=== PATIENT | female | born 1940 | race Caucasian/White ===

== ENCOUNTER 2021-12-27 06:34 | Outpatient (CLI) | payer MEDICARE, SELFPAY ==
--- NOTE | 2021-12-27 06:49 | ECHO_ITS ---
Patient Info Name: Sherrie Vasquez Age: 81 years : 1940 Gender: Female Ht: 60 in Wt: 135 lbs BSA: 1.63 m2 HR: 79 bpm BP: 151 / 82 mmHg Technical Quality: Fair Exam Date: 12/27/2021 7:03 AM Exam Location: [facility] Patient Status: Outpatient Admit Date: 12/27/2021 Staff Ordering Physician: Luis Chen MD Sec Accountant: Arianna Brar RDCS Attending Provider: Luis Chen MD Referring Physician: Gustavo RAMIREZ; Exam Type: CA echo doppler color flow Study Info Indications I10 - Essential (primary) hypertension Complete two-dimensional, color flow and Doppler transthoracic echocardiogram is performed. Summary 1. Complete two-dimensional, color flow and Doppler transthoracic echocardiogram is performed. 2. Left ventricular chamber dimension is normal. 3. Left ventricular systolic function is normal, estimated at 60-65%. 4. The left ventricular diastolic function is grade II diastolic dysfunction. 5. E/e' 18 is elevated. 6. There is mild tricuspid valve regurgitation. 7. No pulmonary hypertension, estimated pulmonary arterial systolic pressure is 23 mmHg. Left Ventricle E/e' 18 is elevated. Left ventricular chamber dimension is normal. Left ventricular systolic function is normal, estimated at 60-65%. The left ventricular diastolic function is grade II diastolic dysfunction. Right Ventricle Right ventricular chamber dimension is normal. Right ventricular systolic function is normal. Left Atria Left atrial chamber dimension is normal. Right Atria Right atrial chamber dimension is normal. Aortic Valve The aortic valve is trileaflet. There is no aortic valve stenosis. There is no aortic valve regurgitation. Pulmonic Valve There is no pulmonic regurgitation. Mitral Valve There is no mitral valve stenosis. There is no mitral valve regurgitation. Tricuspid Valve There is mild tricuspid valve regurgitation. No pulmonary hypertension, estimated pulmonary arterial systolic pressure is 23 mmHg. Pericardium/Pleural There is no pericardial effusion. Inferior Vena Cava Normal inferior vena cava with >50% collapse upon inspiration consistent with normal right atrial pressure, 5 mmHg. Aorta The aortic root size at the sinus of Valsalva is normal. Left Ventricular Outflow Tract Name Value Normal LVOT 2D LVOT Diameter 1.9 cm LVOT Doppler LVOT Peak Gradient 4 mmHg LVOT Mean Gradient 2 mmHg LVOT VTI 21 cm LVOT VTI/AV VTI Ratio 0.9 LVOT Stroke Volume 59 ml LVOT CO 4.0 l/min LVOT CI 2.5 l/min/m2 Pulmonic Valve Name Value Normal RVOT Doppler RVOT Peak Gradient 2 mmHg
== END 2021-12-27 06:35 | disposition home or self-care (01) ==
LOC: ANHCARD 06:37
PROVIDERS: PCP Internal Medicine; Visit Provider Internal Medicine
DX: R01.1 Cardiac murmur, unspecified (principal); I10 Essential (primary) hypertension; R09.89 Other specified symptoms and signs involving the circulatory and respiratory systems; I36.1 Nonrheumatic tricuspid (valve) insufficiency
CPT/HCPCS: 93306

== ENCOUNTER 2022-01-01 10:45 | Outpatient (CLI) | payer MEDICARE, SELFPAY ==
--- NOTE | ~2022-01-01 | US_ITS ---
EXAMINATION: US carotid duplex BI DATE: 01/01/2022 11:32 INDICATION: Hypertension. Heart murmur. TECHNIQUE: Grayscale, color Doppler, and pulsed Doppler images of the cervical carotid arteries were obtained. The degree of vessel stenosis is placed in one of the following categories: normal, <50%, 5 0-69%, >=70% but less than near-occlusion, near-occlusion, or total occlusion. Note that percent sten osis relative to normal distal artery lumen diameter is indirectly measured from velocity measurement s as described by Zachariah, et al. Radiology 2003; 229:340-346. Notes: Normal: Peak systolic velocity <125 centimeters/sec and no plaque <50%. Peak systolic velocity <125 ( EDV <40; ICA/CCA PSV ratio <2.0; used these factors only a tandem lesions or low cardiac output or co ntralateral disease) 50-69 %: PSV 125-230 (EDV 40-100; ratio 2-4) >= 70% but less than near occlusion: PSV greater than 230 (EDV > 100; ratio> 4.0) Near Occlusion: PSV that is variable; markedly narrowed lumen Occlusion: Absent flow on color/spectral Doppler and no lumen on valadez scale. COMPARISON: None. FINDINGS: RIGHT: The right common carotid artery (CCA) peak systolic velocity (PSV) is 80 cm/s. The right internal car otid artery (ICA) PSV is 127 cm/s. The right ICA end-diastolic velocity (EDV) is 31 cm/s. The right I CA/CCA PSV ratio is 1.6. The external carotid artery (ECA) PSV is 75 cm/s. There is antegrade flow in the right vertebral artery. LEFT: The left CCA PSV is 92 cm/s. The left ICA PSV is 85 cm/s. The left ICA EDV is 19 cm/s. The left ICA/C CA PSV ratio is 0.9. The ECA PSV is 120 cm/s. There is antegrade flow in the left vertebral artery. IMPRESSION: 1. 50-69% stenosis in the right internal carotid artery by sonographic criteria. 2. Less than 50% stenosis in the left internal carotid artery by sonographic criteria. Reviewed, dictated and finalized at location A. IMPRESSION: 1. 50-69% stenosis in the right internal carotid artery by sonographic criteria . 2. Less than 50% stenosis in the left internal carotid artery by sonographic cr iteria.
== END 2022-01-01 10:46 | disposition home or self-care (01) ==
LOC: ANHIMG 10:45
PROVIDERS: PCP Internal Medicine; Visit Provider Internal Medicine
DX: R09.89 Other specified symptoms and signs involving the circulatory and respiratory systems (principal); R01.1 Cardiac murmur, unspecified; I10 Essential (primary) hypertension; I65.23 Occlusion and stenosis of bilateral carotid arteries
CPT/HCPCS: 93880

== ENCOUNTER 2022-01-22 06:56 | Outpatient (CLI) | payer MEDICARE, SELFPAY ==
--- NOTE | ~2022-01-22 | CT_ITS ---
EXAMINATION: CTA BRAIN/CAROTID DATE: 01/22/2022 08:08 INDICATION: Abnormal carotid ultrasound TECHNIQUE: Computed tomographic angiography (CTA) of the head and neck was performed with 100 mL Omni paque-300 intravenous contrast. Multiplanar reconstructions and maximum intensity projection 3D-recon structions of the carotid arteries and of the intracranial arteries were created by the technologist on a separate workstation. Precontrast CT of the head was also obtained. Automated exposure control and iterative reconstruction technique were employed.The dose-length product was 1520.44 mGy-cm. COMPARISON: Carotid ultrasound dated 01/01/2022 FINDINGS: Carotid arteries: 60% stenosis of the proximal left subclavian artery proximal to the takeoff of the left vertebral art carole. There is atherosclerotic plaque with 50% stenosis of the right carotid bulb relative to normal d istal artery lumen diameter (NASCET criteria). There is small amount of atherosclerotic plaque with 0 % stenosis of the left carotid bulb relative to normal distal artery lumen diameter. Severely atrophi c thyroid gland with minimal thyroid tissue the left and right thyroid fossae without evident postope rative changes. Correlate for clinical history of prior thyroid ablation. Cervical soft tissues are o therwise unremarkable. Mild cervical spondylosis. Partially visualized 1.5 cm region of groundglass o pacity in the right upper lobe. Head: No acute intracranial hemorrhage, acute infarction or abnormal extra axial fluid collection. There is mild scattered white matter hypoattenuation consistent with chronic small vessel ischemic disease. V entricles are normal and symmetric. No mass/mass effect. No abnormally enhancing brain lesions. Aguilar es of bilateral intraocular lens replacement. The orbits, paranasal sinuses and mastoid air cells are normal. The right maxillary sinus is small with thickened sclerotic guy and moderate mucosal thick ening consistent with chronic sinusitis. There is been resection of the medial wall of the right maxi llary sinus. Mastoid air cells and middle ear cavities are clear. Intracranial arteries Small amount of nonhemodynamically significant atherosclerotic plaque at the bilateral carotid siphon s. There is no hemodynamically significant stenosis in the vertebral, basilar and internal carotid ar teries. Right vertebral artery is dominant. There are no aneurysms identified. Both A1 and P1 segmen ts are patent. Cerebral arterial arborization appears symmetric. IMPRESSION: 1. 50% stenosis of the right carotid bulb relative to normal distal artery lumen diameter (NASCET cri teria). 2. 0% stenosis of the left carotid bulb relative to normal distal artery lumen diameter. 3. Normal cerebral CT angiogram. 4. Mild scattered white matter hypoattenuation consistent with chronic small vessel ischemic disease. No acute intracranial process or abnormally enhancing brain lesions. 5. 60% stenosis along the proximal left subclavian artery. 6. Indeterminate 1.5 cm groundglass opacity in the right upper lobe which is most likely either infec tious, inflammatory or atelectatic in etiology underlying malignancy such as bronchoalveolar carcinom a could not be excluded. Consider 3 month follow-up noncontrast chest CT. Reviewed, dictated and finalized at location A. IMPRESSION: 1. 50% stenosis of the right carotid bulb relative to normal distal artery lume n diameter (NASCET criteria). 2. 0% stenosis of the left carotid bulb relative to normal distal artery lumen diameter. 3. Normal cerebral CT angiogram. 4. Mild scattered white matter hypoattenuation consistent with chronic small ve ssel ischemic disease. No acute intracranial process or abnormally enhancing br ain lesions. 5. 60% stenos
[2022-01-22 07:58] LABS: Estimated Glomerular Filt Rate > 60
== END 2022-01-22 06:57 | disposition home or self-care (01) ==
PROVIDERS: PCP Internal Medicine; Visit Provider Internal Medicine
DX: I65.21 Occlusion and stenosis of right carotid artery (principal)
CPT/HCPCS: 70496; 70498; Q9967

== ENCOUNTER 2022-04-02 08:06 | Outpatient (CLI) | payer MEDICARE, SELFPAY ==
[2022-04-02 08:38] LABS: Basophils Absolute Auto 0.1 K/mm3 (0.0-0.1); Eosinophils Absolute Auto 0.1 K/mm3 (0-0.3); Eosinophils Percent Auto 0.9 % (0-4.4); Hematocrit 52.6 % (37.0-47.0); Hemoglobin 16.5 g/dL (12.0-15.0); Immature Granulocyte Absolute 0.06 K/mm3 (0.00-0.031); Immature Granulocyte Percent A 0.5 % (0-0.5); Lymphocytes Absolute Auto 2.41 K/mm3 (0.9-3.2); Lymphocytes Percent Auto 18.7 % (18.3-44.2); Mean Corpuscular HGB Conc 31.4 g/dl (32-36); Mean Corpuscular Volume 89.3 fl (80-100); Mean Platelet Volume 11.5 fl (7.4-10.4); Monocytes Percent Auto 7.5 % (2.6-8.5); Neutrophils Absolute Auto 9.2 K/mm3 (1.3-6.7); Neutrophils Percent Auto 71.4 % (45.5-73.1); Platelet Count Result 302 k/mm3 (150-375); Red Blood Count 5.89 M/mm3 (4.2-5.4); Red Cell Distribution Width 13.4 % (11.5-14.5); White Blood Count 12.9 K/mm3 (4.5-10.0)
[2022-04-02 11:26] LABS: Appearance Urine Clear (Clear); Bilirubin Urine Negative (Negative); Blood Urine Negative (Negative); Color Urine Yellow (Yellow); Glucose Urine UA Negative (Negative); Ketones Urine Negative (Negative); Leukocyte Esterase Ur Negative LEU/UL (Negative); Nitrate Urine Negative (Negative); Protein Urine Negative (Negative); Urobilinogen Urine 0.2 mg/dL (<2.0); pH Urine 6.5 (5.0-9.0)
[2022-04-02 11:33] LABS: Mucus Urine Rare /lpf; Squamous Epithelial Cell Urine Rare /hpf (Few); WBC Urine 0-3 /hpf
[2022-04-02 11:50] LABS: Add Urine Microscopic? NO
[2022-04-02 13:34] LABS: Alanine Aminotransferase 23 U/L (6-35); Albumin Level 4.4 g/dL (3.5-5.1); Alkaline Phosphatase 163 U/L (38-126); Anion Gap 11 mmol/L (8-16); Aspartate Amino Transferase 35 U/L (14-36); Bilirubin,Total 0.9 mg/dL (0.2-1.3); Blood Urea Nitrogen 16 mg/dL (7-17); Calcium 9.6 mg/dL (8.4-10.2); Carbon Dioxide 26 mmol/L (22-30); Chloride 99 mmol/L (98-107); Cholesterol 187 mg/dL (0-200); Estimated Glomerular Filt Rate > 60; Glucose 87 mg/dL (65-110); HDL Direct 59 mg/dL; Potassium 4.2 mmol/L (3.4-5.0); Sodium 136 mmol/L (137-145); Triglycerides 128 mg/dL (<150)
[2022-04-02 13:45] LABS: LDL Cholesterol Direct 115 mg/dL
[2022-04-02 15:10] LABS: Iron 128 ug/dL (37-170)
[2022-04-02 15:19] LABS: Percent Iron Saturation 27 % (20-50)
[2022-04-02 15:28] LABS: Free T4 Free Thyroxine 2.56 ng/mL (0.78-2.19)
[2022-04-05 12:51] LABS: Insulin Level Total 2.1 uIU/mL (<=19.6)
[2022-04-06 05:28] LABS: C-Peptide 2.14 ng/mL (0.80-3.85)
== END 2022-04-02 08:07 | disposition home or self-care (01) ==
LOC: ANHLAB 08:09
PROVIDERS: PCP Internal Medicine; Visit Provider Internal Medicine
DX: I10 Essential (primary) hypertension (principal); Z13.1 Encounter for screening for diabetes mellitus; Z79.899 Other long term (current) drug therapy; E83.119 Hemochromatosis, unspecified; E78.5 Hyperlipidemia, unspecified; E03.9 Hypothyroidism, unspecified
CPT/HCPCS: 36415; 80053; 80061; 81003; 82728; 83036; 83525; 83540; 83550; 84439; 84443; 84681; 85025

== ENCOUNTER 2022-09-11 07:00 | Outpatient (NON) | payer MEDICARE, SELFPAY | END 2022-09-11 07:01 | disposition home or self-care (01) | PROVIDERS: PCP Internal Medicine; Visit Provider Nurse Practitioner | DX: L57.0 Actinic keratosis (principal) | CPT/HCPCS: 88305 ==

== ENCOUNTER 2022-10-06 07:40 | Outpatient (CLI) | payer MEDICARE, SELFPAY ==
--- NOTE | ~2022-10-06 | US_ITS ---
US abdomen complete EXAMINATION: US Abdomen Complete INDICATION: Abnormal laboratory studies. PROCEDURE: Realtime High Resolution abdomen ultrasound. COMPARISON: No prior studies for comparison FINDINGS: Gallbladder within normal limits. No gallstones, pericholecystic fluid, gallbladder wall t hickening or biliary dilatation. Common bile duct measures 6 mm. Liver echotexture within normal limits without focal mass. Pancreas within normal limits. Pancreati c tail is obscured by bowel gas. Spleen is unremarkeable. Renal echotexture is within normal limits bilaterally without hydronephrosis, contour deforming mass or renal stone. Right kidney measures 10.2 cm. Left kidney measures 9.6 cm. Visualized aspects of the aorta and IVC are within normal limits. Portal vein is patent. No sonograph ic Talavera's sign indicated by the technologist. IMPRESSION: 1: Normal abdominal ultrasound. Reviewed, dictated and finalized at location B.
== END 2022-10-06 07:41 | disposition home or self-care (01) ==
PROVIDERS: PCP Internal Medicine; Visit Provider Internal Medicine
DX: R74.8 Abnormal levels of other serum enzymes (principal)
CPT/HCPCS: 76700

== ENCOUNTER 2022-10-27 09:32 | Outpatient (CLI) | payer MEDICARE, SELFPAY ==
--- NOTE | ~2022-10-27 | NM_ITS ---
EXAMINATION: NM emmy stress w perfusion DATE: 10/27/2022 11:56 INDICATION: Chest pain, unspecified. TECHNIQUE: Rest images were obtained following intravenous administration of 10.7 mCi Tc99m tetrofosm in (Myoview). The patient was infused intravenously with Lexiscan (regadenoson). Then, 32.7 mCi Tc99m tetrofosmin (Myoview) was administered intravenously, and stress images were obtained. Data was giovanna nstructed into short axis and horizontal and vertical long axis SPECT images. Gated SPECT images were also obtained. COMPARISON: None. FINDINGS: There is a small, mild, fixed perfusion defect involving mid inferoseptal and mid inferior segments of left ventricle, consistent with infarct. No reversible component to suggest ischemia. Th ere is no segmental wall motion abnormality. Left ventricular ejection fraction measures >70%. IMPRESSION: 1. Small area of mild infarct involving mid inferoseptal and inferior inferior segments of left ventr icle. 2. Normal left ventricular ejection fraction measuring >70%. Reviewed, dictated and finalized at location A. IMPRESSION: 1. Small area of mild infarct involving mid inferoseptal and inferior inferior segments of left ventricle. 2. Normal left ventricular ejection fraction measuring >70%.
--- NOTE | 2022-10-27 09:41 | EST_ITS ---
Patient Info Name: Sherrie Vasquez Age: 82 years : 1940 Gender: Female Ht: 60 in Wt: 139 lbs BSA: 1.65 m2 HR: 64 bpm BP: 133 / 80 mmHg Heart Rhythm: Sinus Rhythm Exam Date: 10/27/2022 11:05 AM Exam Location: [facility] Stress Patient Status: Outpatient Admit Date: 10/27/2022 Staff Ordering Physician: Luis Chen MD Attending Provider: Luis Chen MD Exercise Technologist: Nancy Cisneros CT Exercise Physician: Hemal Garay DO Exam Type: CA stress emmy w NM Study Info Indications R07.89 - Other chest pain A regadenoson stress test was performed. Summary 1. 1. Negative lexiscan stress test for ischemic ST changes by ECG criteria. 2. 2. Stable hemodynamics throughout the test. 3. 3. Nuclear scan to follow and will be reported separately. Please correlate with it. 4. 4. Patient informed of the above results. Protocol: Lexiscan Stress ECG Details Stage: REST Duration (min): 1 min : 15 sec HR (bpm): 63 SBP (mmHg): 133 DBP (mmHg): 80 Stage: REST Duration (min): 9 min : 37 sec HR (bpm): 66 SBP (mmHg): 133 DBP (mmHg): 80 Stage: STAGE 1 Duration (min): 1 min : 0 sec HR (bpm): 72 SBP (mmHg): 135 DBP (mmHg): 55 Stage: RECOVERY Duration (min): 1 min : 0 sec HR (bpm): 90 SBP (mmHg): 135 DBP (mmHg): 55 Stage: RECOVERY Duration (min): 2 min : 0 sec HR (bpm): 88 SBP (mmHg): 135 DBP (mmHg): 55 Stage: RECOVERY Duration (min): 3 min : 0 sec HR (bpm): 85 SBP (mmHg): 135 DBP (mmHg): 55 Stage: RECOVERY Duration (min): 4 min : 0 sec HR (bpm): 83 SBP (mmHg): 93 DBP (mmHg): 66 Stage: RECOVERY Duration (min): 5 min : 0 sec HR (bpm): 83 SBP (mmHg): 93 DBP (mmHg): 66 Stage: RECOVERY Duration (min): 6 min : 0 sec HR (bpm): 79 SBP (mmHg): 93 DBP (mmHg): 66 Stage: RECOVERY Duration (min): 6 min : 31 sec HR (bpm): 79 SBP (mmHg): 109 DBP (mmHg): 50 Rest HR: 66 bpm Peak HR: 90 bpm Rest Sys BP: 133 mmHg Peak Sys BP: 135 mmHg Max Pred HR: 137 bpm % Max Pred HR: 66 % Target HR: 116 bpm Max RPP: 12,150 bpm*mmHg Termination Reason: Completed protocol Cardiac Symptoms: Shortness of breath Total Time: 1 min : 0 sec Rest Oconnor BP: 80 mmHg Peak Oconnor BP: 55 mmHg Total Dose: 0.4 mg Resting ECG Sinus rhythm, cannot r/o septal infarct, age indeterminate. Stress ECG No ST changes. Arrhythmias None. Report Signatures
== END 2022-10-27 09:33 | disposition home or self-care (01) ==
PROVIDERS: PCP Internal Medicine; Visit Provider Internal Medicine
DX: R07.9 Chest pain, unspecified (principal); I77.1 Stricture of artery
CPT/HCPCS: 78452; 93017; A9502; J2785

== ENCOUNTER 2023-01-20 09:21 | Outpatient (CLI) | payer MEDICARE, SELFPAY ==
[2023-01-20 09:47] LABS: Basophils Absolute Auto 0.1 K/mm3 (0.0-0.1); Basophils Percent Auto 1.3 % (0.2-1.2); Eosinophils Absolute Auto 0.3 K/mm3 (0-0.3); Eosinophils Percent Auto 2.7 % (0-4.4); Hematocrit 47.6 % (37.0-47.0); Hemoglobin 14.9 g/dL (12.0-15.0); Immature Granulocyte Absolute 0.03 K/mm3 (0.00-0.031); Immature Granulocyte Percent A 0.3 % (0-0.5); Lymphocytes Absolute Auto 2.11 K/mm3 (0.9-3.2); Lymphocytes Percent Auto 22.5 % (18.3-44.2); Mean Corpuscular HGB Conc 31.3 g/dl (32-36); Mean Corpuscular Hemoglobin 27.1 pg (26-34); Mean Corpuscular Volume 86.7 fl (80-100); Mean Platelet Volume 11.4 fl (7.4-10.4); Monocytes Absolute Auto 0.8 K/mm3 (0.1-0.6); Neutrophils Absolute Auto 6.1 K/mm3 (1.3-6.7); Neutrophils Percent Auto 65.2 % (45.5-73.1); Platelet Count Result 278 k/mm3 (150-375); Red Blood Count 5.49 M/mm3 (4.2-5.4); Red Cell Distribution Width 15.2 % (11.5-14.5); White Blood Count 9.4 K/mm3 (4.5-10.0)
[2023-01-20 10:00] LABS: Alanine Aminotransferase 24 U/L (6-35); Albumin Level 4.2 g/dL (3.5-5.1); Alkaline Phosphatase 157 U/L (38-126); Anion Gap 9 mmol/L (8-16); Aspartate Amino Transferase 37 U/L (14-36); Bilirubin,Total 1.1 mg/dL (0.2-1.3); Blood Urea Nitrogen 17 mg/dL (7-17); Calcium 8.9 mg/dL (8.4-10.2); Carbon Dioxide 29 mmol/L (22-30); Chloride 99 mmol/L (98-107); Cholesterol 188 mg/dL (0-200); Estimated Glomerular Filt Rate > 60; Glucose 95 mg/dL (65-110); HDL Direct 50 mg/dL; Sodium 137 mmol/L (137-145); Triglycerides 129 mg/dL (<150)
[2023-01-20 10:10] LABS: LDL Cholesterol Direct 108 mg/dL
[2023-01-20 10:49] LABS: Free T4 Free Thyroxine 1.35 ng/mL (0.78-2.19)
== END 2023-01-20 09:22 | disposition home or self-care (01) ==
PROVIDERS: PCP Internal Medicine; Visit Provider Internal Medicine
DX: R73.03 Prediabetes (principal); I10 Essential (primary) hypertension; E03.9 Hypothyroidism, unspecified; E78.5 Hyperlipidemia, unspecified
CPT/HCPCS: 36415; 80053; 80061; 83036; 84439; 84443; 85025

== ENCOUNTER 2023-06-10 07:28 | Outpatient (CLI) | payer MEDICARE, SELFPAY ==
[2023-06-10 08:48] LABS: Alanine Aminotransferase 20 U/L (6-35); Albumin Level 4.4 g/dL (3.5-5.1); Alkaline Phosphatase 165 U/L (38-126); Anion Gap 7 mmol/L (8-16); Aspartate Amino Transferase 38 U/L (14-36); Blood Urea Nitrogen 15 mg/dL (7-17); Calcium 9.6 mg/dL (8.4-10.2); Carbon Dioxide 30 mmol/L (22-30); Chloride 101 mmol/L (98-107); Cholesterol 177 mg/dL (0-200); Estimated Glomerular Filt Rate > 60; Glucose 117 mg/dL (65-110); HDL Direct 46 mg/dL; Potassium 5.1 mmol/L (3.4-5.0); Sodium 138 mmol/L (137-145); Triglycerides 149 mg/dL (<150)
[2023-06-10 08:53] LABS: Hemoglobin A1C 6.3 % (<5.7)
[2023-06-10 08:59] LABS: LDL Cholesterol Direct 95 mg/dL
[2023-06-10 09:08] LABS: Vitamin D 25 Hydroxy 19.8 ng/mL
== END 2023-06-10 07:29 | disposition home or self-care (01) ==
LOC: ANHLAB 07:31
PROVIDERS: PCP Internal Medicine; Visit Provider Internal Medicine
DX: E78.5 Hyperlipidemia, unspecified (principal); E03.9 Hypothyroidism, unspecified; R73.03 Prediabetes; I11.0 Hypertensive heart disease with heart failure; I50.9 Heart failure, unspecified; Z79.899 Other long term (current) drug therapy
CPT/HCPCS: 36415; 80053; 80061; 82306; 83036; 84439; 84443

== ENCOUNTER 2023-09-24 08:39 | Emergency (ER) | payer MEDICARE, SELFPAY ==
[2023-09-24] VITALS (8 sets, daily range): BP systolic 121–180; BP diastolic 62–100; PULSE 92; RESP 16; TEMP 36.3; O2SAT 94–100
--- NOTE | ~2023-09-24 | CT_ITS ---
EXAMINATION: CT abdomen pelvis w con DATE: 09/24/2023 10:06 INDICATION: Left-sided abdomen pain TECHNIQUE: Computed tomography (CT) of the abdomen and pelvis was performed with 100 cc Omnipaque 350 intravenous contrast. The dose-length product was 426.87 mGy-cm. Automated exposure control and iter ative reconstruction technique were employed. COMPARISON: Ultrasound dated 10/06/2022. FINDINGS: There is a 3 mm left UVJ stone with mild left hydroureteronephrosis. There is moderate left perinephric edema. There is mild urothelial enhancement of the proximal ureter. Cannot exclude ascen ding urinary tract infection There are small intraluminal nodules in the gallbladder which may represent stones or polyps. There a re liver cysts. There are calcified granulomas of the spleen. Nonobstructive bowel gas pattern. No ab normal pelvic masses or fluid collections. There are injection granulomas in the gluteal regions. The re is grade 1 spondylolisthesis at L5-S1 secondary to spondylolysis. There is disc narrowing at L4-5 and L5-S1. Moderate atherosclerosis of the aorta without aneurysm. No lymphadenopathy. IMPRESSION: 1. Left UVJ stone measuring 3 mm with mild hydronephrosis. Mild urothelial enhancement proximally. Ca nnot exclude ascending urinary tract infection. 2: Hyper dense nodules of the gallbladder may represent polyps or stones. Reviewed, dictated and finalized at location L. IMPRESSION: 1. Left UVJ stone measuring 3 mm with mild hydronephrosis. Mild urothelial enha ncement proximally. Cannot exclude ascending urinary tract infection. 2: Hyper dense nodules of the gallbladder may represent polyps or stones.
[2023-09-24] MEDS: ONDANSETRON INJ 4 MG/2 ML VIAL IV PUSH (09:04)
[2023-09-24 09:11] LABS: Basophils Absolute Auto 0.1 K/mm3 (0.0-0.1); Basophils Percent Auto 0.6 % (0.2-1.2); Eosinophils Absolute Auto 0.1 K/mm3 (0-0.3); Eosinophils Percent Auto 1.3 % (0-4.4); Hematocrit 52.8 % (37.0-47.0); Hemoglobin 17.2 g/dL (12.0-15.0); Immature Granulocyte Absolute 0.03 K/mm3 (0.00-0.031); Immature Granulocyte Percent A 0.3 % (0-0.5); Lymphocytes Absolute Auto 1.78 K/mm3 (0.9-3.2); Lymphocytes Percent Auto 16.8 % (18.3-44.2); Mean Corpuscular HGB Conc 32.6 g/dl (32-36); Mean Corpuscular Hemoglobin 27.4 pg (26-34); Mean Corpuscular Volume 84.1 fl (80-100); Mean Platelet Volume 11.2 fl (7.4-10.4); Monocytes Absolute Auto 0.8 K/mm3 (0.1-0.6); Monocytes Percent Auto 7.8 % (2.6-8.5); Neutrophils Absolute Auto 7.8 K/mm3 (1.3-6.7); Neutrophils Percent Auto 73.2 % (45.5-73.1); Platelet Count Result 286 k/mm3 (150-375); Red Blood Count 6.28 M/mm3 (4.2-5.4); Red Cell Distribution Width 16.7 % (11.5-14.5); White Blood Count 10.6 K/mm3 (4.5-10.0)
[2023-09-24 09:26] LABS: Alanine Aminotransferase 22 U/L (6-35); Albumin Level 4.3 g/dL (3.5-5.1); Alkaline Phosphatase 176 U/L (38-126); Anion Gap 5 mmol/L (4-12); Aspartate Amino Transferase 40 U/L (14-36); Bilirubin,Total 1.1 mg/dL (0.2-1.3); Blood Urea Nitrogen 18 mg/dL (7-17); Calcium 9.1 mg/dL (8.4-10.2); Carbon Dioxide 29 mmol/L (22-30); Chloride 100 mmol/L (98-107); Estimated CRCL calculation 24 ml/min; Estimated Glomerular Filt Rate 47; Glucose 129 mg/dL (65-110); Lipase 78 U/L (23-300); Potassium 3.8 mmol/L (3.4-5.0); Sodium 134 mmol/L (137-145)
--- NOTE | 2023-09-24 09:47 | ED.ABDPAIN ---
HPI - Abdominal Pain General Chief Complaint: Abdominal Pain Stated Complaint: left flank pain Time Seen by Provider: 09/24/23 09:03 History of Present Illness HPI narrative: 83-year-old female with a history of polycythemia, hypertension, hyperlipidemia, reported diverticulitis presents to the emergency department for left-sided abdominal pain and flank pain that started yesterday. Patient reports associated dysuria and denies hematuria or history of kidney stones. States the pain started after she went to dinner and came home. Last bowel movement was yesterday normal. Reports multiple episodes of nausea and vomiting since the onset of pain, denies diarrhea. Denies known fever, chest pain or shortness of breath, body aches or chills. prior abdominal surgeries include hysterectomy and appendectomy. Related Data Home Medications Medication Instructions Recorded Confirmed albuterol sulfate 90 mcg/actuation 1 puff inhalation Q4H PRN 12/23/21 06/10/23 aerosol inhaler (Ventolin HFA) cholecalciferol (vitamin D3) 50 50 mcg PO DAILY 09/09/22 06/10/23 mcg (2,000 unit) capsule Allergies Allergy/AdvReac Type Severity Reaction Status Date / Time Sulfa (Sulfonamide Allergy Unknown Unknown Verified 09/24/23 08:46 Antibiotics) Review of Systems Review of Systems: CONSTITUTIONAL: Denies fever, chills, or sweats. EYES: Denies visual changes, redness, or discharge. ENT: Denies rhinorrhea, congestion, sore throat, or otalgia. CARDIOVASCULAR: Denies chest pain, palpitations, or edema. RESPIRATORY: Denies cough or dyspnea. GASTROINTESTINAL: See HPI GENITOURINARY: Denies dysuria or hematuria. SKIN: Denies rash or itching. MUSCULOSKELETAL: Denies back pain, joint pain, or myalgia. NEUROLOGIC: Denies headache, numbness, or weakness. PSYCHIATRIC: Denies anxiety or depression. [facility] Past Medical History Medical History Acute sinusitis Benign essential hypertension Benign familial tremor BMI 24.0-24.9, adult BMI 25.0-25.9,adult Cardiac calcification Carotid bruit Elective procedure for unacceptable cosmetic appearance Encounter for Medicare annual wellness exam Encounter for routine adult health examination without abnormal findings Encounter to establish care Esophageal varices Esophagitis Follow up Ganglion cyst of finger Gastric nodule Grade II diastolic dysfunction Heart murmur Hemochromatosis High cholesterol Hyperlipidemia Hypothyroidism (acquired) Impaired functional mobility, balance, gait, and endurance Internal hemorrhoids Lung nodule On fpc drug therapy Thyroid disease Tricuspid valve regurgitation Viral warts Surgical History Surgical History H/O colonoscopy H/O oophorectomy History of esophagogastroduodenoscopy (EGD) Family History Family History Father Idiopathic Parkinson's disease Mother Heart disease Sibling Malignant neoplasm of prostate Son Diabetes mellitus Social History Social History Smoking status: Never smoker Alcohol intake: current Alcohol use details: occasional Substance use: never Lack of Transportation: No Lack of Food: Never True Current Housing: I Have Housing Concerned About Future Housing: No Difficulty Paying Gas/Electric Bills: No Difficulty Paying for Meds: No Currently Unemployed: No Education: High School Diploma/GED Difficulty w/ Childcare or Family Care: No Living arrangements: alone Additional living arrangements comments: at home with some hired hands 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
[2023-09-24] MEDS: MORPHINE SULFATE (*CRX) 4 MG/ML INJ 2 MG IV PUSH (10:13)
[2023-09-24 10:30] LABS: Lactic Acid Reflex 0.9 mmol/L (0.7-2.0)
[2023-09-24 11:40] LABS: Appearance Urine Clear (Clear); Bilirubin Urine Negative (Negative); Blood Urine Negative (Negative); Color Urine Yellow (Yellow); Glucose Urine UA Negative (Negative); Ketones Urine Negative (Negative); Leukocyte Esterase Ur Negative LEU/UL (Negative); Nitrate Urine Negative (Negative); Protein Urine Negative (Negative); Urobilinogen Urine 0.2 mg/dL (<2.0); pH Urine 7.5 (5.0-9.0)
[2023-09-24 11:48] LABS: Specific Grav Ur 1.038 (1.001-1.035)
[2023-09-24 11:49] LABS: Add Urine Microscopic? NO
[2023-09-24] MEDS: SODIUM CHLORIDE 0.9% IV 1,000 ML 999 ML IV CONT (12:00)
== END 2023-09-24 13:04 | disposition home or self-care (01) ==
PROVIDERS: Student in an Organized Health Care Education/Training Program; Emergency Provider Physician Assistant; PCP Internal Medicine
DX: N13.2 Hydronephrosis with renal and ureteral calculous obstruction (principal); K80.20 Calculus of gallbladder without cholecystitis without obstruction; I10 Essential (primary) hypertension; I07.1 Rheumatic tricuspid insufficiency; E78.00 Pure hypercholesterolemia, unspecified; E03.9 Hypothyroidism, unspecified; D75.1 Secondary polycythemia
CPT/HCPCS: 36415; 74177; 80053; 81003; 83605; 83690; 85025; 96361; 96374; 96375; 99284; J2270; J2405; J7030; Q9967

== ENCOUNTER 2023-10-13 10:04 | Outpatient (CLI) | payer MEDICARE, SELFPAY ==
[2023-10-13 10:33] LABS: Basophils Absolute Auto 0.1 K/mm3 (0.0-0.1); Basophils Percent Auto 0.9 % (0.2-1.2); Eosinophils Absolute Auto 0.1 K/mm3 (0-0.3); Eosinophils Percent Auto 1.3 % (0-4.4); Hematocrit 46.4 % (37.0-47.0); Immature Granulocyte Absolute 0.04 K/mm3 (0.00-0.031); Immature Granulocyte Percent A 0.4 % (0-0.5); Lymphocytes Absolute Auto 1.64 K/mm3 (0.9-3.2); Lymphocytes Percent Auto 17.8 % (18.3-44.2); Mean Corpuscular HGB Conc 32.3 g/dl (32-36); Mean Corpuscular Hemoglobin 27.3 pg (26-34); Mean Corpuscular Volume 84.5 fl (80-100); Mean Platelet Volume 11.4 fl (7.4-10.4); Monocytes Absolute Auto 0.9 K/mm3 (0.1-0.6); Monocytes Percent Auto 9.7 % (2.6-8.5); Neutrophils Absolute Auto 6.4 K/mm3 (1.3-6.7); Neutrophils Percent Auto 69.9 % (45.5-73.1); Platelet Count Result 322 k/mm3 (150-375); Red Blood Count 5.49 M/mm3 (4.2-5.4); Red Cell Distribution Width 15.8 % (11.5-14.5); White Blood Count 9.2 K/mm3 (4.5-10.0)
[2023-10-13 10:53] LABS: Alanine Aminotransferase 19 U/L (6-35); Albumin Level 4.3 g/dL (3.5-5.1); Alkaline Phosphatase 138 U/L (38-126); Anion Gap 8 mmol/L (4-12); Aspartate Amino Transferase 43 U/L (14-36); Bilirubin,Total 0.9 mg/dL (0.2-1.3); Blood Urea Nitrogen 13 mg/dL (7-17); Calcium 9.5 mg/dL (8.4-10.2); Carbon Dioxide 29 mmol/L (22-30); Chloride 100 mmol/L (98-107); Cholesterol 153 mg/dL (0-200); Estimated Glomerular Filt Rate > 60; Glucose 102 mg/dL (65-110); HDL Direct 43 mg/dL; Potassium 3.6 mmol/L (3.4-5.0); Sodium 137 mmol/L (137-145); Triglycerides 121 mg/dL (<150)
[2023-10-13 11:04] LABS: LDL Cholesterol Direct 91 mg/dL
[2023-10-13 11:13] LABS: Hemoglobin A1C 5.9 % (<5.7)
[2023-10-13 11:48] LABS: Free T4 Free Thyroxine 1.73 ng/mL (0.78-2.19); Vitamin D 25 Hydroxy 22.7 ng/mL
== END 2023-10-13 10:05 | disposition home or self-care (01) ==
LOC: ANHLAB 10:08
PROVIDERS: PCP Internal Medicine; Visit Provider Internal Medicine
DX: E03.9 Hypothyroidism, unspecified (principal); E55.9 Vitamin D deficiency, unspecified; I10 Essential (primary) hypertension; E78.5 Hyperlipidemia, unspecified; R73.03 Prediabetes
CPT/HCPCS: 36415; 80053; 80061; 82306; 83036; 84439; 84443; 85025

== ENCOUNTER 2023-11-16 13:21 | Outpatient (CLI) | payer MEDICARE, SELFPAY ==
[2023-11-16 15:23] LABS: Free T4 Free Thyroxine 2.46 ng/mL (0.78-2.19)
== END 2023-11-16 13:22 | disposition home or self-care (01) ==
LOC: ANHLAB 13:23
PROVIDERS: PCP Internal Medicine; Visit Provider Internal Medicine
DX: E03.9 Hypothyroidism, unspecified (principal)
CPT/HCPCS: 36415; 84439; 84443

== ENCOUNTER 2023-12-28 08:46 | Outpatient (CLI) | payer MEDICARE, SELFPAY ==
[2023-12-28 10:05] LABS: Basophils Absolute Auto 0.1 K/mm3 (0.0-0.1); Basophils Percent Auto 0.9 % (0.2-1.2); Eosinophils Absolute Auto 0.2 K/mm3 (0-0.3); Eosinophils Percent Auto 1.7 % (0-4.4); Hematocrit 51.4 % (37.0-47.0); Hemoglobin 16.3 g/dL (12.0-15.0); Immature Granulocyte Absolute 0.03 K/mm3 (0.00-0.031); Immature Granulocyte Percent A 0.3 % (0-0.5); Lymphocytes Absolute Auto 2.09 K/mm3 (0.9-3.2); Lymphocytes Percent Auto 19.6 % (18.3-44.2); Mean Corpuscular HGB Conc 31.7 g/dl (32-36); Mean Corpuscular Hemoglobin 27.1 pg (26-34); Mean Corpuscular Volume 85.5 fl (80-100); Mean Platelet Volume 11.9 fl (7.4-10.4); Monocytes Absolute Auto 0.8 K/mm3 (0.1-0.6); Monocytes Percent Auto 7.1 % (2.6-8.5); Neutrophils Absolute Auto 7.5 K/mm3 (1.3-6.7); Neutrophils Percent Auto 70.4 % (45.5-73.1); Platelet Count Result 308 k/mm3 (150-375); Red Blood Count 6.01 M/mm3 (4.2-5.4); Red Cell Distribution Width 14.7 % (11.5-14.5); White Blood Count 10.6 K/mm3 (4.5-10.0)
[2023-12-28 10:24] LABS: Alanine Aminotransferase 20 U/L (6-35); Albumin Level 4.4 g/dL (3.5-5.1); Alkaline Phosphatase 174 U/L (38-126); Anion Gap 6 mmol/L (4-12); Aspartate Amino Transferase 37 U/L (14-36); Bilirubin,Total 0.9 mg/dL (0.2-1.3); Blood Urea Nitrogen 17 mg/dL (7-17); Calcium 9.2 mg/dL (8.4-10.2); Carbon Dioxide 30 mmol/L (22-30); Chloride 101 mmol/L (98-107); Cholesterol 165 mg/dL (0-200); Estimated Glomerular Filt Rate > 60; Glucose 94 mg/dL (65-110); HDL Direct 48 mg/dL; Potassium 4.6 mmol/L (3.4-5.0); Sodium 137 mmol/L (137-145); Triglycerides 148 mg/dL (<150)
[2023-12-28 10:30] LABS: Free T4 Free Thyroxine 2.13 ng/mL (0.78-2.19)
[2023-12-28 10:35] LABS: LDL Cholesterol Direct 99 mg/dL
[2023-12-28 11:25] LABS: Hemoglobin A1C 5.8 % (<5.7)
== END 2023-12-28 08:47 | disposition home or self-care (01) ==
LOC: ANHLAB 08:50
PROVIDERS: PCP Internal Medicine; Visit Provider Internal Medicine
DX: E78.5 Hyperlipidemia, unspecified (principal); E03.9 Hypothyroidism, unspecified; I10 Essential (primary) hypertension; R74.8 Abnormal levels of other serum enzymes; Z79.899 Other long term (current) drug therapy
CPT/HCPCS: 36415; 80053; 80061; 82306; 83036; 84439; 84443; 85025

== ENCOUNTER 2024-03-04 08:57 | Outpatient (CLI) | payer MEDICARE, SELFPAY ==
--- NOTE | ~2024-03-04 | XR_ITS ---
Clinical Indication: Hyperhidrosis PA and lateral views of the chest: Comparison: None Findings: The lungs are clear, without evidence of focal consolidation or pleural effusion. Suspected COPD. Cardiomediastinal silhouette is within normal limits. Bones and soft tissues are unremarkable. Impression: Clear lungs. Suspected COPD. Reviewed, dictated and finalized at location . Impression: Clear lungs. Suspected COPD.
[2024-03-04 09:28] LABS: Basophils Absolute Auto 0.1 K/mm3 (0.0-0.1); Eosinophils Absolute Auto 0.2 K/mm3 (0-0.3); Eosinophils Percent Auto 2.2 % (0-4.4); Hematocrit 49.6 % (37.0-47.0); Hemoglobin 15.6 g/dL (12.0-15.0); Immature Granulocyte Absolute 0.02 K/mm3 (0.00-0.031); Immature Granulocyte Percent A 0.2 % (0-0.5); Lymphocytes Absolute Auto 2.14 K/mm3 (0.9-3.2); Lymphocytes Percent Auto 24.7 % (18.3-44.2); Mean Corpuscular HGB Conc 31.5 g/dl (32-36); Mean Corpuscular Hemoglobin 26.7 pg (26-34); Mean Corpuscular Volume 84.8 fl (80-100); Mean Platelet Volume 11.2 fl (7.4-10.4); Monocytes Absolute Auto 0.7 K/mm3 (0.1-0.6); Monocytes Percent Auto 7.6 % (2.6-8.5); Neutrophils Absolute Auto 5.6 K/mm3 (1.3-6.7); Neutrophils Percent Auto 64.3 % (45.5-73.1); Platelet Count Result 330 k/mm3 (150-375); Red Blood Count 5.85 M/mm3 (4.2-5.4); Red Cell Distribution Width 15.7 % (11.5-14.5); White Blood Count 8.7 K/mm3 (4.5-10.0)
[2024-03-04 09:37] LABS: Add Urine Microscopic? NO; Appearance Urine Clear (Clear); Bilirubin Urine Negative (Negative); Blood Urine Negative (Negative); Color Urine Yellow (Yellow); Glucose Urine UA Negative (Negative); Ketones Urine Negative (Negative); Leukocyte Esterase Ur Negative LEU/UL (Negative); Nitrate Urine Negative (Negative); Protein Urine Negative (Negative); Specific Grav Ur 1.015 (1.001-1.035); pH Urine 5.5 (5.0-9.0)
[2024-03-04 10:00] LABS: Alanine Aminotransferase 20 U/L (6-35); Albumin Level 4.3 g/dL (3.5-5.1); Alkaline Phosphatase 157 U/L (38-126); Anion Gap 7 mmol/L (4-12); Aspartate Amino Transferase 40 U/L (14-36); Bilirubin,Total 0.8 mg/dL (0.2-1.3); Blood Urea Nitrogen 15 mg/dL (7-17); Calcium 9.4 mg/dL (8.4-10.2); Carbon Dioxide 32 mmol/L (22-30); Chloride 97 mmol/L (98-107); Estimated Glomerular Filt Rate > 60; Glucose 104 mg/dL (65-110); Lactate Dehydrogenase 241 U/L (120-246); Potassium 5.3 mmol/L (3.4-5.0); Sodium 136 mmol/L (137-145)
== END 2024-03-04 08:58 | disposition home or self-care (01) ==
PROVIDERS: PCP Internal Medicine; Visit Provider Internal Medicine
DX: R61 Generalized hyperhidrosis (principal); R35.0 Frequency of micturition; R30.0 Dysuria; D75.1 Secondary polycythemia; Z79.899 Other long term (current) drug therapy
CPT/HCPCS: 36415; 71046; 80053; 81003; 82668; 83615; 85025; 87086

== ENCOUNTER 2024-03-15 11:14 | Outpatient (CLI) | payer MEDICARE, SELFPAY ==
--- NOTE | ~2024-03-15 | US_ITS ---
EXAMINATION: US renal BI DATE: 03/15/2024 12:28 INDICATION: Frequency of micturition TECHNIQUE: Multiple ultrasound grayscale images of the kidneys were obtained. COMPARISON: CT dated 09/24/2023 FINDINGS: The right kidney measures 10.3 x 4.2 x 4.8 cm. The left kidney measures 10.2 x 4.9 x 4.9 cm. The kidn eys demonstrate normal echogenicity. There is no hydronephrosis in either kidney. No stones identifi ed. The bladder is normal with bilateral ureteral jets visualized on color Doppler. IMPRESSION: 1. Normal kidneys without hydronephrosis. Reviewed, dictated and finalized at location B.
== END 2024-03-15 11:15 | disposition home or self-care (01) ==
PROVIDERS: PCP Internal Medicine; Visit Provider Internal Medicine
DX: R35.0 Frequency of micturition (principal); M54.9 Dorsalgia, unspecified; D75.1 Secondary polycythemia
CPT/HCPCS: 76775

== ENCOUNTER 2024-06-06 10:30 | Outpatient (CLI) | payer MEDICARE, SELFPAY ==
[2024-06-06 11:55] LABS: Free T4 Free Thyroxine 1.85 ng/dL (0.78-2.19)
== END 2024-06-06 10:31 | disposition home or self-care (01) ==
PROVIDERS: PCP Internal Medicine; Visit Provider Internal Medicine
DX: E03.9 Hypothyroidism, unspecified (principal); Z79.899 Other long term (current) drug therapy
CPT/HCPCS: 36415; 84439; 84443

== ENCOUNTER 2024-09-16 08:17 | Inpatient (IN) | payer MEDICARE, SELFPAY ==
--- NOTE | ~2024-09-16 | CT_ITS ---
CT abdomen pelvis w con Ordering provider: Abdulaziz Woodruff MD History: 84 years Female with . diverticulitis . Comparison: September 24, 2023 Technique: CT abdomen and pelvis with IV and without oral contrast. Automated exposure control and it erative reconstruction technique were employed. The dose-length product was 289.15 mGy-cm. 100 mL Omn ipaque 350 was given IV. Findings: VISUALIZED LOWER CHEST: Normal. UPPER ABDOMINAL ORGANS: Liver: Multiple tiny hypodensities in the left and right lobe of the area of the gallbladder which ar e most likely tiny cysts. Ultrasound evaluation advised. Gallbladder: Cholelithiasis. Spleen: Normal. Stomach/duodenum: Normal. Pancreas: Normal. Adrenals: Normal. Kidneys: Normal. PELVIC ORGANS: The bladder is underfilled. BOWEL AND MESENTERY: Colon: Mild soft tissue density in the sigmoid colon with no significant surrounding fat stranding guy ggestive of a mass. Sigmoidoscopy is advised. Diverticulitis cannot be excluded although less likely. The appendix is not demonstrated. Small Bowel: Normal. No obstruction. Peritoneum/mesentery: No free air or free fluid. No mesenteric lymphadenopathy. Prominent vessels are seen in the left side of the pelvis. Small mesenteric lymph nodes are noted. RETROPERITONEUM: Mild atheromatous disease of the abdominal aorta. No retroperitoneal lymphadenopat hy. MUSCULOSKELETAL: Superficial soft tissues: Bilateral buttock calcifications most likely postinjection. The superficial soft tissues are normal. Bones: Age appropriate degenerative changes of the spine. Minimal anterolisthesis at the level of L5- S1. Spondylolysis is seen bilaterally at the same level. IMPRESSION: 1. Possible mass in the sigmoid colon. Sigmoidoscopy is advised. Diverticulitis is less likely, Alth ough not excluded. 2. Cholelithiasis. Reviewed, dictated and finalized at location A. IMPRESSION: 1. Possible mass in the sigmoid colon. Sigmoidoscopy is advised. Diverticuliti s is less likely, Although not excluded. 2. Cholelithiasis.
[2024-09-16 08:21] VITALS: BP 96/50; PULSE 68; RESP 16; TEMP 36.3; O2SAT 98
[2024-09-16 09:00] LABS: Basophils Absolute Auto 0.1 K/mm3 (0.0-0.1); Basophils Percent Auto 0.7 % (0.2-1.2); Eosinophils Absolute Auto 0.1 K/mm3 (0-0.3); Eosinophils Percent Auto 0.9 % (0-4.4); Hematocrit 48.8 % (37.0-47.0); Hemoglobin 15.5 g/dL (12.0-15.0); Immature Granulocyte Absolute 0.05 K/mm3 (0.00-0.031); Immature Granulocyte Percent A 0.3 % (0-0.5); Lymphocytes Absolute Auto 1.54 K/mm3 (0.9-3.2); Lymphocytes Percent Auto 10.2 % (18.3-44.2); Mean Corpuscular HGB Conc 31.8 g/dl (32-36); Mean Corpuscular Hemoglobin 26.8 pg (26-34); Mean Corpuscular Volume 84.4 fl (80-100); Mean Platelet Volume 11.5 fl (7.4-10.4); Monocytes Absolute Auto 1.1 K/mm3 (0.1-0.6); Monocytes Percent Auto 7.2 % (2.6-8.5); Neutrophils Absolute Auto 12.2 K/mm3 (1.3-6.7); Neutrophils Percent Auto 80.7 % (45.5-73.1); Platelet Count Result 274 k/mm3 (150-375); Red Blood Count 5.78 M/mm3 (4.2-5.4); Red Cell Distribution Width 14.7 % (11.5-14.5); White Blood Count 15.1 K/mm3 (4.5-10.0)
[2024-09-16 09:06] LABS: Add Urine Microscopic? YES; Appearance Urine Cloudy (Clear); Bilirubin Urine Negative (Negative); Blood Urine Negative (Negative); Color Urine Dark Yellow (Yellow); Glucose Urine UA Negative (Negative); Ketones Urine Trace mg/dL (Negative); Leukocyte Esterase Ur Negative LEU/UL (Negative); Nitrate Urine Negative (Negative); Protein Urine Trace mg/dL (Negative); Specific Grav Ur 1.023 (1.001-1.035); pH Urine 5.5 (5.0-9.0)
[2024-09-16 09:10] LABS: Alanine Aminotransferase 22 U/L (6-35); Albumin Level 4.2 g/dL (3.5-5.1); Alkaline Phosphatase 138 U/L (38-126); Anion Gap 8 mmol/L (4-12); Aspartate Amino Transferase 39 U/L (14-36); Bilirubin,Total 1.6 mg/dL (0.2-1.3); Blood Urea Nitrogen 16 mg/dL (7-17); Calcium 9.2 mg/dL (8.4-10.2); Carbon Dioxide 30 mmol/L (22-30); Chloride 98 mmol/L (98-107); Estimated CRCL calculation 33 ml/min; Estimated Glomerular Filt Rate > 60; Glucose 110 mg/dL (65-110); Lipase 68 U/L (23-300); Potassium 4.5 mmol/L (3.4-5.0); Sodium 136 mmol/L (137-145)
[2024-09-16 10:01] VITALS: BP 115/55; PULSE 66; RESP 16; O2SAT 97
--- OUTSIDE RECORDS SUMMARY | 2024-09-16 10:03 | XMS_ITS | Referral Summary ---
Author Organization [facility] Address [address] [place] [address] Care Team Providers Care Aesthetics Instructor Name Role Phone Low Braxton MD Primary Care Provider [phone] Allergies Active Allergy Reactions Criticality Noted Date Comments Sulfa (Sulfonamide Antibiotics) Hives Medium 12/28 Medications amLODIPine (NORVASC) 5 mg tablet Take 5 mg by mouth daily 11/02/2020 Active atorvastatin (LIPITOR) 10 mg tablet TAKE 1/2 TABLET BY MOUTH 3 TIMES PER WEEK 09/12/2020 Active propranolol LA (INDERAL LA) 80 mg 24 hr capsule Take 80 mg by mouth daily 09/12/2020 Active levothyroxine (SYNTHROID) 75 mcg tablet Take 75 mcg by mouth daily 11/18/2018 Active valsartan (DIOVAN) 160 mg tablet Take 160 mg by mouth daily 10/11/2020 Active aspirin 81 mg chewable tablet 04/10/2021 Act alex Stool Softener 100 mg capsule 02/26/2021 Acti ve primidone (MYSOLINE) 50 mg tabletIndicatio ns:Essential tremor Take 1 tablet (50 mg total) by mouth nightly 90 tablet 3 05/06/2021 Active Active Problems Problem Noted Date Diagnosed Date Essential tremor 11/09/2020 Assessment & Plan (05/06/2021 8:53 AM PSYCHOLOGICAL OPERATIONS SPECIALIST): Patient continues on primidone 50 mg HS at this time as with the b.i.d. regimen she developed daytime dyspepsia. On the reduced dose she is having good tolerability and effective suppression of most tremor. I have renewed her primidone 50 mg HS. She will follow-up in neurology clinic in 1 year or sooner on an as-needed basis. Assessment & Plan (11/09/2020 9:45 AM CDT): Patient has a several year history of worsening essential tremor manifest as head titubation, appendicular tremor common vocal tremor. She has been using beta- tyree with propranolol and given her blood pressure and pulses limited for further increase. Will place her on a trial of primidone 50 mg b.i.d. to be taken along with the propranolol an effort to try to lessen tremor. Patient was counseled that would likely work better for her appendicular tremor less so for head titubation and likely to not have much impact on vocal tremor. If she wishes to have treatment for vocal tremor that typically involves botulinum toxin injections into the vocal cords. I will see her back in the office in 6 months time for reassessment. Hypertension 06/24/2013 Overview (10/02/2016): HBP (high blood pressure) Hypothyroidism 06/24/2013 Overview (10/02/2016): Hypothyroidism Social History Tobacco Use Types Packs/Day Years Used Date Smoking Tobacco: Former Smokeless Tobacco: Never Alcohol Use Standard Drinks/Week Comments No 0 (1 standard drink = 0.6 oz pur e alcohol) Comments Unknown Sex and Gender Information Value Date Recorded Sex Assigned at Not on file Legal Sex Female 3:06 AM PSYCHOLOGICAL OPERATIONS SPECIALIST Gender Identity Female 11/07/2020 11:55 AM CDT Sexual Orientation Straight 11/07/2020 11 :55 AM CDT Last Filed Vital Signs Vital Sign Reading Time Taken Comments Blood Pressure 106/72 05/06/2021 8:15 AM PSYCHOLOGICAL OPERATIONS SPECIALIST Pulse 66 05/06/2021 8:15 AM PSYCHOLOGICAL OPERATIONS SPECIALIST Temperature 36.7 C (98 F) 05/06/2021 8:15 AM PSYCHOLOGICAL OPERATIONS SPECIALIST Respiratory Rate - - Oxygen Saturation - - Inhaled Oxygen Concentration - - Weight 57.2 kg (126 lb 3.2 oz) 05/06/2021 8:15 A M PSYCHOLOGICAL OPERATIONS SPECIALIST Height 153.7 cm (5' 0.5 ) 05/06/2021 8:15 AM PSYCHOLOGICAL OPERATIONS SPECIALIST Body Mass Index 24.24 05/06/2021 8:15 AM PSYCHOLOGICAL OPERATIONS SPECIALIST Plan of Treatment Not on file Insurance [employer] SENIOR SUPPLEMENT MEDICARE MEDICARE [employer] MCR ADV REF MEDICARE [employer] SENIOR SUPPLEMENT Care Teams Aesthetics Instructor Relationship Specialty Start Date End Date Low Braxton MD [address] [place] [id number] PCP - General Internal Medicine 11/09/20
--- OUTSIDE RECORDS SUMMARY | 2024-09-16 10:03 | XMS_ITS | Clinical Summary ---
Author Organization [facility] [place] [facility] Address [address] [place] [address] Care Team Providers Care Diagrammer And Seamer Name Role Phone Low Braxton MD Primary Care Provider [phone] Allergies Active Allergy Reactions Criticality Noted Date [...] 11/09/2020 Assessment & Plan (05/06/2021 8:53 AM COPY CHASER): Patient continues on primidone 50 mg HS [...] blood pressure) Hypothyroidism 06/24/2013 Overview (10/02/2016): Hypothyroidism Surgical History Surgery Date Site/Laterality Comments HYSTERECTOMY 06/29/1969 - 06/28/1970 Hysterectomy APPENDECTOMY 06/29/1969 - 06/28/1970 Appendectomy OTHER SURGICAL HISTORY 06/29/1979 - 06/28/1980 sinus surgury BREAST BIOPSY 07/28/2013 Right Medical History Medical History Date Comments Hypertension High cholesterol Family History Medical History Relation Name Comments Cancer Brother Prostrate Prostate cancer Brother Prostrate Cancer Father Leo Heart attack Father Leo Heart attack Mother Leann Other Other 1 No family histo ry of Cancer, breast; Other Other 2 No family histo ry of Cancer, colon; Other Other 3 No family histo ry of Cervical cancer; Other Other 4 No family histo ry of Ovarian cancer; Relation Name Status Comments Brother Prostrate Alive Father Leo Mother Leann Other 1 Other 2 Other 3 Other 4 Social History Tobacco Use Types Packs/Day Years Used Date Smoking Tobacco: Former Smokeless Tobacco: Never Alcohol Use Standard Drinks/Week Comments No 0 (1 standard drink = 0.6 oz pur e alcohol) Comments Unknown Sex and Gender Information Value Date Recorded Sex Assigned at Not on file Legal Sex Female 3:06 AM COPY CHASER Gender Identity Female 11/07/2020 11:55 AM CDT Sexual Orientation Straight 11/07/2020 11 :55 AM CDT Obstetrics History Last Filed Vital Signs Vital Sign Reading Time Taken Comments Blood Pressure 106/72 05/06/2021 8:15 AM COPY CHASER Pulse 66 05/06/2021 8:15 AM COPY CHASER Temperature 36.7 C (98 F) 05/06/2021 8:15 AM COPY CHASER Respiratory Rate - - Oxygen Saturation - - Inhaled Oxygen Concentration - - Weight 57.2 kg (126 lb 3.2 oz) 05/06/2021 8:15 A M COPY CHASER Height 153.7 cm (5' 0.5 ) 05/06/2021 8:15 AM COPY CHASER Body Mass Index 24.24 05/06/2021 8:15 AM COPY CHASER Plan of Treatment Not on file Insurance [employer] SENIOR SU[employer]MENT MEDICARE MEDICARE AETNA [facility] MEDICARE A[employer] SENIOR SUPPLEMENT Care Teams Diagrammer And Seamer Relationship Specialty Start Date End Date Low Braxton MD [facility] [place], [place] [id number] PCP - General Internal Medicine 11/09/20
--- OUTSIDE RECORDS SUMMARY | 2024-09-16 10:03 | XMS_ITS | Encounter Summary ---
Author Organization [facility] Address [address] Attn: Epic Prelude ADT [place] [address] Care Team Providers Care Woolen Suiting Shrinker Name Role Phone Luis Chen MD Primary Care Provider + Encounter Details Date Type Department Care Team (Late st Contact Info) Description 09/28/1999 Outpatient Historical Social History Tobacco Use Types Packs/Day Years Used Date Smoking Tobacco: Never Assessed Comments Unknown Sex and Gender Information Value Date Recorded Sex Assigned at Not on file Legal Sex Female 5:17 AM GRE TUTOR Gender Identity Not on file Sexual Orientation Not on file documented as of this encounter Plan of Treatment Not on file documented as of this encounter Visit Diagnoses Not on filedocumented in this encounter Care Teams Woolen Suiting Shrinker Relationship Specialty Start Date End Date Luis Chen MD [address] [place] [id number] PCP - General Internal Medicine 07/23/22 documented as of this encounter
--- OUTSIDE RECORDS SUMMARY | 2024-09-16 10:03 | XMS_ITS | Clinical Summary ---
Author Organization [facility] [employer] Business Office Address [address] [place] [address] Care Team Providers Care Textile Technologist Name Role Phone Luis Chen MD Primary Care Provider + Allergies Active Allergy Reactions Criticality Noted Date Comments Sulfa (Sulfonamide Antibiotics) Hives,Rash High 12/28 Medications atorvastatin (LIPITOR) 10 mg tablet TAKE 1/2 TABLET BY MOUTH 3 TIMES PER WEEK 1 Active levothyroxine 75 mcg tablet Take 75 mcg by mouth daily. 9 Active primidone (MYSOLINE) 50 mg tablet TAKE 1 TABLET BY MOUTH TWICE A DAY 1 Active propranoloL (INDERAL LA) 80 mg Long Acting 24 hour capsule Take 80 mg by mouth daily. 9 Active valsartan (DIOVAN) 160 mg tablet Take 160 mg by mouth daily. 1 Active aspirin (HOLLEY CHEWABLE) 81 mg Tablet, Chewable 1 Active VENTOLIN HFA 90 mcg/actuation inhaler INHALE 2 PUFFS INTO THE LUNGS EVERY 4 HOURS NEEDED FOR WHEEZING OR SHORTNESS OF BREATH. 2 Active amLODIPine (NORVASC) 5 mg tablet Take 5 mg by mouth daily. 2 Active carbidopa-levod opa (SINEMET) 10-100 mg tablet TAKE 1 TABLET BY MOUTH TWICE A DAY PLEASE MAKE APPT 2 Active docusate sodium (COLACE) 100 mg capsule Take 100 mg by mouth 2 times daily. 1 Active DULoxetine (CYMBALTA) 30 mg Capsule, Delayed Release(E.C.) TAKE 1 CAPSULE BY MOUTH EVERY MORNING 2 Active gabapentin (NEURONTIN) 300 mg capsule TAKE 1 CAPSULE BY MOUTH THREE TIMES A DAY 2 Active hydrOXYzine HCL (ATARAX) 25 mg tablet TAKE 1 TABLET BY MOUTH EVERY DAY AT BEDTIME 2 Active pantoprazole (PROTONIX) 40 mg Tablet, Delayed Release (E.C.) Take 40 mg by mouth daily. 2 Active Active Problems Problem Noted Date Diagnosed Date Erythrocytosis 04/10/2021 Family History Relation Name Status Comments Brother Alive Father Mother Son 1 Alive Son 2 Alive Social History Tobacco Use Types Packs/Day Years Used Date Smoking Tobacco: Former Smokeless Tobacco: Never Tobacco Cessation:Counseling Given: Not Answered Comments:quit over 40 yrs ago Alcohol Use Standard Drinks/Week Comments Yes 0 (1 standard drink = 0.6 oz pur e alcohol) Comments No Sex and Gender Information Value Date Recorded Sex Assigned at Not on file Legal Sex Female 5:17 AM URBAN GARDENING SPECIALIST Gender Identity Not on file Sexual Orientation Not on file Last Filed Vital Signs Vital Sign Reading Time Taken Comments Blood Pressure 99/62 07/23/2022 10:14 AM URBAN GARDENING SPECIALIST Pulse 71 07/23/2022 10:14 AM URBAN GARDENING SPECIALIST Temperature 36.5 C (97.7 F) 07/23/2022 10:14 AM URBAN GARDENING SPECIALIST Respiratory Rate 16 07/23/2022 10:14 AM URBAN GARDENING SPECIALIST Oxygen Saturation 90% 07/23/2022 10:14 AM URBAN GARDENING SPECIALIST hands cold Inhaled Oxygen Concentration - - Weight 61 kg (134 lb 8 oz) 07/23/2022 10:[address] Height 152.4 cm (5') 01/23/2022 11:15 AM CDT Body Mass Index 26.27 01/23/2022 11:15 AM CDT Plan of Treatment Health Maintenance Due Date Last Done Comments DTAP/TDAP/TD VACCINES (1 - Tdap) 1959 PNEUMOCOCCAL VACCINE 50+ YEARS (1 of 2 - PCV) 01/21/19 57 ZOSTER VACCINE (1 of 2) 1989 OSTEOPOROSIS SCREENING 01/22/2004 RSV VACCINE (60+ or ) (1 - 1-dose 75+ series) 2014 INFLUENZA VACCINE (#1) 2024 COVID-19 Vaccine (2 2023- season) 2024 Insurance MEDICARE PART A AND B AETNA MEDICARE SUPP AESSI MEDICARE PART A AND B Care Teams Textile Technologist Relationship Specialty Start Date End Date Luis Chen MD [address] [place] [id number] PCP - General Internal Medicine 07/23/22
--- OUTSIDE RECORDS SUMMARY | 2024-09-16 10:03 | XMS_ITS | Encounter Summary ---
Author Organization [facility] Address [address] [facility] Attn: Epic Prelude ADT [place] [address] Care Team Providers Care Finished Metal Repairer Name Role Phone Luis Chen MD Primary Care Provider + Encounter Details Date Type Department Care Team (Late st Contact Info) Description 01/23/1995 [place] [id number] [address] Social History Tobacco Use Types Packs/Day Years Used Date Smoking Tobacco: Never Assessed Comments Unknown Sex and Gender Information Value Date Recorded Sex Assigned at Not on file Legal Sex Female 5:17 AM TRANSMISSION MECHANIC Gender Identity Not on file Sexual Orientation Not on file documented as of this encounter Plan of Treatment Not on file documented as of this encounter Visit Diagnoses Not on filedocumented in this encounter Care Teams Finished Metal Repairer Relationship Specialty Start Date End Date Luis Chen MD [address] [place] [id number] PCP - General Internal Medicine 07/23/22 documented as of this encounter
--- NOTE | 2024-09-16 11:16 | ED.ABDPAIN ---
HPI - Abdominal Pain General Chief Complaint: Abdominal Pain Stated Complaint: abd pain Time Seen by Provider: 09/16/24 08:20 Source: patient Mode of arrival: ambulatory Limitations: no limitations History of Present Illness HPI narrative: 84-year-old with a history of hypertension, diverticulosis, hyperlipidemia here with the complaints of left lower abdominal pain for past few days associated with some diarrhea. She denies any fever or chills. No history of blood in the stool. MD elicited complaint: abdominal pain Pertinent past history: diverticulitis Onset (ago): day(s) (3) Pain Consistency: constant Location: LLQ Severity: moderate Quality: aching Radiation: none Migration to: no migration Exacerbating factors: nothing Relieving factors: nothing Associated symptoms: denies other symptoms Related Data Home Medications ?Medication ?Instructions ?Recorded ?Confirmed ?Last Taken ?Type albuterol sulfate 90 mcg/actuation 1 puff inhalation Q4H PRN 12/23/21 05/09/24 Unknown History aerosol inhaler (Ventolin HFA) cholecalciferol (vitamin D3) 50 50 mcg PO DAILY 09/09/22 05/09/24 Unknown History mcg (2,000 unit) capsule acetaminophen 500 mg tablet 500 mg PO Q6H PRN 01/20/24 05/09/24 Unknown History (Tylenol Extra Strength) Allergies Allergy/AdvReac Type Severity Reaction Status Date / Time Sulfa (Sulfonamide Allergy Unknown Unknown Verified 09/16/24 08:24 Antibiotics) Review of Systems Review of Systems: All systems reviewed & are unremarkable except as noted in HPI and below Constitutional: Constitutional: Reports no additional constitutional complaints Eyes: Eyes: Reports no additional eye complaints ENT: Reports system reviewed and no additional complaints, except as documented Cardiovascular: Cardiovascular: Reports no additional cardiovascular complaints Respiratory: Respiratory: Reports no additional respiratory complaints Gastrointestinal: Gastrointestinal: Reports as per HPI Musculoskeletal: Musculoskeletal: Reports no additional musculoskeletal complaints Integumentary/Breasts: Skin/Breast: Reports system reviewed and no additional complaints, except as docu Neurologic: Reports system reviewed and no additional complaints, except as documented PMFSH Past Medical History Medical History Sacroiliac joint pain Yeast infection Dysuria Night sweats Urinary frequency Rash Depression Vitamin D deficiency History of kidney stones Stress Acute sinusitis Encounter for routine adult health examination without abnormal findings Cardiac calcification Impaired functional mobility, balance, gait, and endurance Encounter for Medicare annual wellness exam BMI 25.0-25.9,adult Lung nodule Tricuspid valve regurgitation Grade II diastolic dysfunction Follow up Viral warts Ganglion cyst of finger Elective procedure for unacceptable cosmetic appearance Heart murmur Hypothyroidism (acquired) Carotid bruit Hemochromatosis Benign familial tremor On terminal make up operator drug therapy BMI 24.0-24.9, adult Encounter to establish care Internal hemorrhoids Esophageal varices Gastric nodule Esophagitis Hyperlipidemia Benign essential hypertension High cholesterol Thyroid disease Surgical History Surgical History H/O colonoscopy History of esophagogastroduodenoscopy (EGD) H/O oophorectomy Family History Family History Father Idiopathic Parkinson's disease Mother Heart disease Sibling Malignant neoplasm of prostate Son Diabetes mellitus Social History Social History Smoking status: Never smoker Alcohol intake: current Alcohol use details: occasional Substance use: never Lack of Transportation: No Lack of Food: Never True Current Housing: I Have Housing Concerned About Future Housing: No Difficulty Paying Gas/Electric Bills: No Difficulty Paying for Meds: No Currently Unemployed: No Education: High School Diploma/GED Difficulty w/ Childcare or Family Care: No Living arrangements: alone Additional living arrangements comments: at home with some hired hands 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 Informed her and her daughter about the lab work, CT findings. I discussed with Dr. Chen , Dr. Green and Dr. Tolliver .will start IV Zozsyn and Flagyl Vital Signs Vital signs: Vital Signs Temperature 36.3 C L 09/16/24 08:21 Pulse Rate 68 09/16/24 08:21 Respiratory Rate 16 09/16/24 08:21 Blood Pressure 96/50 L 09/16/24 08:21 Pulse Oximetry 98 09/16/24 08:21 Oxygen Delivery Room Air 09/16/24 08:21 Temperature 36.3 C L 09/16/24 08:21 Pulse Rate 66 09/16/24 10:01 Respiratory Rate 16 09/16/24 10:01 Blood Pressure 115/55 L 09/16/24 10:01 Pulse Oximetry 97 09/16/24 10:01 Oxygen Delivery Room Air 09/16/24 08:21 MDM - Abdominal Pain Differential Diagnosis Differential diagnosis: Likely abdominal pain, diverticulitis, gastroenteritis and small bowel obstruction Medical Records Attestation: I reviewed the patient's medical records. Lab Data Attestation: I reviewed the patient's lab results. 09/16/24 08:53 09/16/24 08:53 Labs: Lab Results 09/16/24 09/16/24 Range/Units 08:46 08:53 WBC 15.1 H (4.5-10.0) K/mm3 RBC 5.78 H (4.2-5.4) M/mm3 Hgb 15.5 H (12.0-15.0) g/dL Hct 48.8 H (37.0-47.0) % MCV 84.4 (80-100) fl MCH 26.8 (26-34) pg MCHC 31.8 L (32-36) g/dl RDW 14.7 H (11.5-14.5) % Plt Count 274 (150-375) k/mm3 MPV 11.5 H (7.4-10.4) fl Immature Gran % (Auto) 0.3 (0-0.5) % Neut % (Auto) 80.7 H (45.5-73.1) % Lymph % (Auto) 10.2 L (18.3-44.2) % [place] % (Auto) 7.2 (2.6-8.5) % Eos % (Auto) 0.9 (0-4.4) % Baso % (Auto) 0.7 (0.2-1.2) % Lymph # (Auto) 1.54 (0.9-3.2) K/mm3 [place] # (Auto) 1.1 H (0.1-0.6) K/mm3 Eos # (Auto) 0.1 (0-0.3) K/mm3 Baso # (Auto) 0.1 (0.0-0.1) K/mm3 Abs Immat Gran (auto) 0.05 H (0.00-0.031) K/mm3 Absolute Neuts (auto) 12.2 H (1.3-6.7) K/mm3 Absolute Nucleated RBC 0.000 (0.0-0.012) K/mm3 Nucleated RBC % 0.0 (0.0-0.2) % Sodium 136 L (137-145) mmol/L Potassium 4.5 (3.4-5.0) mmol/L Chloride 98 (98-107) mmol/L Carbon Dioxide 30 (22-30) mmol/L Anion Gap 8 (4-12) mmol/L BUN 16 (7-17) mg/dL Creatinine 0.77 (0.7-1.0) mg/dL Estim Creat Clear Calc 33 ml/min Estimated GFR > 60 (59 - ) Glucose 110 (65-110) mg/dL Calcium 9.2 (8.4-10.2) mg/dL Total Bilirubin 1.6 H (0.2-1.3) mg/dL AST 39 H (14-36) U/L ALT 22 (6-35) U/L Alkaline Phosphatase 138 H (38-126) U/L Total Protein 7.0 (6.3-8.2) g/dL Albumin 4.2 (3.5-5.1) g/dL Lipase 68 (23-300) U/L Urine Color Dark yellow (Yellow) Urine Appearance Cloudy H (Clear) Urine pH 5.5 (5.0-9.0) Ur Specific [place] 1.023 (1.001-1.035) Urine Protein Trace (Negative) mg/dL Urine Glucose (UA) Negative (Negative) mg/dL Urine Ketones Trace H (Negative) mg/dL Ur Blood (Man) Negative (Negative) Urine Nitrate Negative (Negative) Urine Bilirubin Negative (Negative) Urine Urobilinogen 1.0 (<2.0) mg/dL Leukocyte Esterase Rfl Negative (Negative) NATALIA/UL Imaging Data Radiologist's impression: ITS Impressions Abdomen/Pelvis CT 09/16/24 10:00 IMPRESSION: 1. Possible mass in the sigmoid colon. Sigmoidoscopy is advised. Diverticulitis is less likely, Although not excluded. 2. Cholelithiasis. Discharge Plan Discharge Clinical Impression: Sigmoid diverticulitis Patient Disposition: Still a Patient Condition: Stable Instructions: Antibiotic Form Patient Language: Slovak Prescriptions: No Action fluticasone propionate 50 mcg/actuation spray,suspension See Rx Instructions .ROUTE .COMPLEX PRN (Reason: seasonal allergies) Qty: 16 0RF Dose Instruction: ADMINISTER 2 SPRAYS INTO EACH NOSTRIL DAILY Rx Instructions: ADMINISTER 2 SPRAYS INTO EACH NOSTRIL DAILY PRN; triamcinolone acetonide 0.5 % cream 1 applic topical BID Qty: 60 1RF fluconazole 150 mg tablet 150 mg PO DAILY Qty: 3 1RF albuterol sulfate [Ventolin HFA] 90 mcg/actuation HFA aerosol inhaler 1 puff inhalation Q4H PRN duloxetine 30 mg capsule,delayed release(DR/EC) 30 mg PO DAILY Qty: 5 0RF Rx Instructions: Pt to takes 5 days of Duloxetine 30mg then stop. acetaminophen [Tylenol Extra Strength] 500 mg tablet 500 mg PO Q6H PRN cholecalciferol (vitamin D3) 50 mcg (2,000 unit) capsule 50 mcg PO DAILY clotrimazole-betamethasone 1-0.05 % cream See Rx Instructions .ROUTE .COMPLEX Qty: 45 2RF Dose Instruction: APPLY TO AFFECTED AREA TWICE A DAY Rx Instructions: APPLY TO AFFECTED AREA TWICE A DAY levothyroxine 75 mcg tablet 75 mcg PO DAILY Qty: 90 0RF propranolol 80 mg capsule,extended release 24 hr See Rx Instructions .ROUTE .COMPLEX Qty: 90 1RF Dose Instruction: TAKE 1 CAPSULE BY MOUTH EVERY DAY Rx Instructions: TAKE 1 CAPSULE BY MOUTH EVERY DAY pantoprazole 40 mg tablet,delayed release (DR/EC) See Rx Instructions .ROUTE .COMPLEX Qty: 180 1RF Dose Instruction: TAKE 2 TABLETS BY MOUTH IN THE MORNING Rx Instructions: TAKE 2 TABLETS BY MOUTH IN THE MORNING nystatin-triamcinolone 100,000-0.1 unit/g-% cream 1 applic topical BID Qty: 30 1RF escitalopram oxalate 10 mg tablet See Rx Instructions .ROUTE .COMPLEX Qty: 90 1RF Dose Instruction: TAKE 1 TABLET BY MOUTH EVERY DAY Rx Instructions: TAKE 1 TABLET BY MOUTH EVERY DAY valsartan 320 mg tablet See Rx Instructions .ROUTE .COMPLEX Qty: 90 1RF Dose Instruction: TAKE 1 TABLET BY MOUTH DAILY. Rx Instructions: TAKE 1 TABLET BY MOUTH DAILY. atorvastatin 80 mg tablet See Rx Instructions .ROUTE .COMPLEX Qty: 90 1RF Dose Instruction: TAKE 1 TABLET BY MOUTH EVERY DAY Rx Instructions: TAKE 1 TABLET BY MOUTH EVERY DAY gabapentin 300 mg capsule See Rx Instructions .ROUTE .COMPLEX Qty: 90 1RF Dose Instruction: TAKE 1 CAPSULE BY MOUTH THREE TIMES A DAY Rx Instructions: TAKE 1 CAPSULE BY MOUTH THREE TIMES A DAY amlodipine 5 mg tablet See Rx Instructions .ROUTE .COMPLEX Qty: 45 2RF Dose Instruction: TAKE 1/2 TABLET EVERY DAY Rx Instructions: TAKE 1/2 TABLET EVERY DAY Follow-up/Referrals: Luis Chen MD [Primary Care Provider] - Time of Disposition: 11:26
--- NOTE | 2024-09-16 11:24 | P.CONGS_ITS ---
Assessment and Plan Assessment and plan (1) Mass of colon: Code(s): K63.89 - Other specified diseases of intestine Status: Acute Assessment and Plan: Exam largely benign, we will need to be admitted, started on IV antibiotics, bowel rest, GI consultation for possible sigmoidoscopy, most likely from diverticulitis History of Present Illness Consult details Consult date: 09/16/24 Reason for consult: abdominal pain Requesting physician: Abdulaziz Woodruff MD Narrative: The patient is an 84-year-old female presenting to the emergency department complaining of severe left lower quadrant abdominal pain. The patient reports the episode started about 3-4 days ago with diarrhea. She reports that the diarrhea has since stopped, however she has began with constant left lower quadrant pain. The patient reports no further diarrhea but she is passing flatus. The patient also reports poor appetite. The patient reports this is similar to her previous episodes of diverticulitis. Workup, including imaging, significant for mass in the sigmoid colon and leukocytosis. Review of Systems 2 Review of Systems: All systems reviewed & are unremarkable except as noted in HPI and below PMFSH Past Medical History Medical History Sacroiliac joint pain Yeast infection Dysuria Night sweats Urinary frequency Rash Depression Vitamin D deficiency History of kidney stones Stress Acute sinusitis Encounter for routine adult health examination without abnormal findings Cardiac calcification Impaired functional mobility, balance, gait, and endurance Encounter for Medicare annual wellness exam BMI 25.0-25.9,adult Lung nodule Tricuspid valve regurgitation Grade II diastolic dysfunction Follow up Viral warts Ganglion cyst of finger Elective procedure for unacceptable cosmetic appearance Heart murmur Hypothyroidism (acquired) Carotid bruit Hemochromatosis Benign familial tremor 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 BMI 24.0-24.9, adult Encounter to establish care Internal hemorrhoids Esophageal varices Gastric nodule Esophagitis Hyperlipidemia Benign essential hypertension High cholesterol Thyroid disease Surgical History Surgical History H/O colonoscopy History of esophagogastroduodenoscopy (EGD) H/O oophorectomy Family History Family History Father Idiopathic Parkinson's disease Mother Heart disease Sibling Malignant neoplasm of prostate Son Diabetes mellitus Social History Social History Smoking status: Never smoker Alcohol intake: current Alcohol use details: occasional Substance use: never Lack of Transportation: No Lack of Food: Never True Current Housing: I Have Housing Concerned About Future Housing: No Difficulty Paying Gas/Electric Bills: No Difficulty Paying for Meds: No Currently Unemployed: No Education: High School Diploma/GED Difficulty w/ Childcare or Family Care: No Living arrangements: alone Additional living arrangements comments: at home with some hired hands 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 care concerns: No Agree to blood products: Yes Meds Home Medications and Allergies Home Medications ?Medication ?Instructions ?Recorded ?Confirmed ?Type albuterol sulfate 90 mcg/actuation 1 puff inhalation Q4H PRN 12/23/21 05/09/24 History aerosol inhaler (Ventolin HFA) cholecalciferol (vitamin D3) 50 50 mcg PO DAILY 09/09/22 05/09/24 History mcg (2,000 unit) capsule clotrimazole-betamethasone 1 See Rx Instructions .Route 11/17/22 05/09/24 Rx %-0.05 % topical cream .COMPLEX #45 grams fluticasone propionate 50 See Rx Instructions .Route 01/20/23 05/09/24 Rx mcg/actuation nasal .COMPLEX PRN seasonal allergies spray,suspension #16 mL acetaminophen 500 mg tablet 500 mg PO Q6H PRN 01/20/24 05/09/24 History (Tylenol Extra Strength) duloxetine 30 mg capsule,delayed 30 mg PO DAILY #5 caps 01/20/24 05/09/24 Rx release triamcinolone acetonide 0.5 % 1 applic topical BID #60 grams 03/04/24 05/09/24 Rx topical cream fluconazole 150 mg tablet 150 mg PO DAILY #3 tabs 05/03/24 05/09/24 Rx levothyroxine 75 mcg tablet 75 mcg PO DAILY #90 tabs 06/06/24 Rx propranolol 80 mg capsule,24 See Rx Instructions .Route 06/27/24 Rx hr,extended release .COMPLEX #90 caps pantoprazole 40 mg tablet,delayed See Rx Instructions .Route 06/30/24 Rx release .COMPLEX #180 tabs nystatin-triamcinolone 100,000 1 applic topical BID #30 grams 07/14/24 Rx unit/g-0.1 % topical cream escitalopram oxalate 10 mg tablet See Rx Instructions .Route 07/18/24 Rx .COMPLEX #90 tabs valsartan 320 mg tablet See Rx Instructions .Route 07/22/24 Rx .COMPLEX #90 tabs atorvastatin 80 mg tablet See Rx Instructions .Route 08/08/24 Rx .COMPLEX #90 tabs gabapentin 300 mg capsule See Rx Instructions .Route 08/22/24 Rx .COMPLEX #90 caps amlodipine 5 mg tablet See Rx Instructions .Route 08/25/24 Rx .COMPLEX #45 tabs Allergies Allergy/AdvReac Type Severity Reaction Status Date / Time Sulfa (Sulfonamide Allergy Unknown Unknown Verified 09/16/24 08:24 Antibiotics) Vital Signs Vital Signs - 24 hr 09/16/24 08:21 09/16/24 10:01 Temperature 36.3 C L Pulse Rate 68 66 Respiratory Rate 16 16 Blood Pressure 96/50 L 115/55 L Pulse Oximetry 98 97 Oxygen Delivery Room Air Exam 2 Const: General: cooperative, no acute distress and uncomfortable HENMT: Head: normal to inspection, normocephalic and atraumatic Eyes: General: appearance normal, both eyes and all related structures Neck: Neck: normal visual inspection, full ROM and no lymphadenopathy Resp: Auscultation: clear to auscultation bilaterally Cardio: Rate: regular rate Rhythm: regular rhythm GI: Inspection: normal to inspection GI Palp: Yes abdominal tenderness, Yes Soft to palpation, Yes Tenderness to palpation present (GI), No Guarding due to palpation present (GI) and No Rigid due to palpation Skin: General skin exam: normal color and no rashes or lesions noted Neuro: General: patient oriented x3 and CN's II-XI intact bilaterally Extrem: General: normal to inspection and full ROM Results Labs 09/16/24 08:53 09/16/24 08:53 Labs: Abnormal lab results 09/16/24 09/16/24 Range/Units 08:46 08:53 WBC 15.1 H (4.5-10.0) K/mm3 RBC 5.78 H (4.2-5.4) M/mm3 Hgb 15.5 H (12.0-15.0) g/dL Hct 48.8 H (37.0-47.0) % MCHC 31.8 L (32-36) g/dl RDW 14.7 H (11.5-14.5) % MPV 11.5 H (7.4-10.4) fl Neut % (Auto) 80.7 H (45.5-73.1) % Lymph % (Auto) 10.2 L (18.3-44.2) % [place] # (Auto) 1.1 H (0.1-0.6) K/mm3 Abs Immat Gran (auto) 0.05 H (0.00-0.031) K/mm3 Absolute Neuts (auto) 12.2 H (1.3-6.7) K/mm3 Sodium 136 L (137-145) mmol/L Total Bilirubin 1.6 H (0.2-1.3) mg/dL AST 39 H (14-36) U/L Alkaline Phosphatase 138 H (38-126) U/L Urine Appearance Cloudy H (Clear) Urine Ketones Trace H (Negative) mg/dL Diabetes panel 09/16/24 Range/Units 08:53 Sodium 136 L (137-145) mmol/L Potassium 4.5 (3.4-5.0) mmol/L Chloride 98 (98-107) mmol/L Carbon Dioxide 30 (22-30) mmol/L BUN 16 (7-17) mg/dL Creatinine 0.77 (0.7-1.0) mg/dL Glucose 110 (65-110) mg/dL Calcium 9.2 (8.4-10.2) mg/dL AST 39 H (14-36) U/L ALT 22 (6-35) U/L Alkaline Phosphatase 138 H (38-126) U/L Total Protein 7.0 (6.3-8.2) g/dL Albumin 4.2 (3.5-5.1) g/dL Calcium panel 09/16/24 Range/Units 08:53 Calcium 9.2 (8.4-10.2) mg/dL Albumin 4.2 (3.5-5.1) g/dL Pituitary panel 09/16/24 Range/Units 08:53 Sodium 136 L (137-145) mmol/L Potassium 4.5 (3.4-5.0) mmol/L Chloride 98 (98-107) mmol/L Carbon Dioxide 30 (22-30) mmol/L BUN 16 (7-17) mg/dL Creatinine 0.77 (0.7-1.0) mg/dL Glucose 110 (65-110) mg/dL Calcium 9.2 (8.4-10.2) mg/dL Adrenal panel 09/16/24 Range/Units 08:53 Sodium 136 L (137-145) mmol/L Potassium 4.5 (3.4-5.0) mmol/L Chloride 98 (98-107) mmol/L Carbon Dioxide 30 (22-30) mmol/L BUN 16 (7-17) mg/dL Creatinine 0.77 (0.7-1.0) mg/dL Glucose 110 (65-110) mg/dL Calcium 9.2 (8.4-10.2) mg/dL Total Bilirubin 1.6 H (0.2-1.3) mg/dL AST 39 H (14-36) U/L ALT 22 (6-35) U/L Alkaline Phosphatase 138 H (38-126) U/L Total Protein 7.0 (6.3-8.2) g/dL Albumin 4.2 (3.5-5.1) g/dL All other labs normal. Imaging Abdomen CT scan report/results: report reviewed and image reviewed
[2024-09-16] MEDS: PIPERACILLN/TAZ 3.375GM/NS50ML 3.375 GM/50 ML BAG IVPB (11:52)
[2024-09-16 11:53] VITALS: BP 110/47; PULSE 64; RESP 18; O2SAT 93
[2024-09-16] MEDS: metroNIDAZOLE 500 MG/ISO 100ML 500 MG/100 ML BAG 100 MG IVPB (11:53)
--- NOTE | 2024-09-16 12:53 | P.HP_ITS ---
H&P: HPI History of Present Illness Date/Time: 09/16/24 12:53 Chief Complaint: Abdominal pain Narrative: A 84-year-old past medical history of diastolic congestive heart failure, squamous cell carcinoma, hypertension, diverticulosis, and hyperlipidemia presents to the hospital with left lower abdominal pain. Patient states that her abdominal pain started about 3 days ago. In the left lower quadrant, she also had diarrhea with it. Patient denies fevers chills nausea or vomiting. In the ED she had leukocytosis at 15.1. Hemoglobin of 15.5, total bilirubin of 1.6, AST of 39, alkaline phos of 138, UA negative for infection, CT of the abdomen pelvis showed possible mass in sigmoid colon and cholelithiasis. General surgery has been consulted Review of Systems Review of Systems: 12 systems were reviewed and are negativ e except for as per HPI. [facility] Past Medical History Medical History Sacroiliac joint pain Yeast infection Dysuria Night sweats Urinary frequency Rash Depression Vitamin D deficiency History of kidney stones Stress Acute sinusitis Encounter for routine adult health examination without abnormal findings Cardiac calcification Impaired functional mobility, balance, gait, and endurance Encounter for Medicare annual wellness exam BMI 25.0-25.9,adult Lung nodule Tricuspid valve regurgitation Grade II diastolic dysfunction Follow up Viral warts Ganglion cyst of finger Elective procedure for unacceptable cosmetic appearance Heart murmur Hypothyroidism (acquired) Carotid bruit Hemochromatosis Benign familial tremor 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 BMI 24.0-24.9, adult Encounter to establish care Internal hemorrhoids Esophageal varices Gastric nodule Esophagitis Hyperlipidemia Benign essential hypertension High cholesterol Thyroid disease Surgical History Surgical History H/O colonoscopy History of esophagogastroduodenoscopy (EGD) H/O oophorectomy Family History Family History Father Idiopathic Parkinson's disease Mother Heart disease Sibling Malignant neoplasm of prostate Son Diabetes mellitus Social History Social History Smoking status: Never smoker Alcohol intake: current Alcohol use details: occasional Substance use: never Do You Feel Safe in your Home?: Yes Lack of Transportation: No Lack of Food: Never True Current Housing: I Have Housing Concerned About Future Housing: No Difficulty Paying Gas/Electric Bills: No Difficulty Paying for Meds: No Currently Unemployed: No Education: High School Diploma/GED Difficulty w/ Childcare or Family Care: No Living arrangements: alone Additional living arrangements comments: at home with some hired hands 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 care concerns: No Agree to blood products: Yes Meds Home Medications and Allergies Home Medications ?Medication ?Instructions ?Recorded ?Confirmed ?Type albuterol sulfate 90 mcg/actuation 1 puff inhalation Q4H PRN 12/23/21 09/16/24 History aerosol inhaler (Ventolin HFA) shortness of breath or wheezing cholecalciferol (vitamin D3) 50 50 mcg PO DAILY 09/09/22 09/16/24 History mcg (2,000 unit) capsule levothyroxine 75 mcg tablet 75 mcg PO DAILY #90 tabs 06/06/24 09/16/24 Rx propranolol 80 mg capsule,24 See Rx Instructions .Route 06/27/24 09/16/24 Rx hr,extended release .COMPLEX #90 caps escitalopram oxalate 10 mg tablet See Rx Instructions .Route 07/18/24 09/16/24 Rx .COMPLEX #90 tabs valsartan 320 mg tablet See Rx Instructions .Route 07/22/24 09/16/24 Rx .COMPLEX #90 tabs atorvastatin 80 mg tablet See Rx Instructions .Route 08/08/24 09/16/24 Rx .COMPLEX #90 tabs amlodipine 5 mg tablet See Rx Instructions .Route 08/25/24 09/16/24 Rx .COMPLEX #45 tabs gabapentin 300 mg capsule 300 mg PO QPM 09/16/24 09/16/24 History nystatin-triamcinolone 100,000 1 applic topical BID PRN itching 09/16/24 09/16/24 History unit/g-0.1 % topical cream Allergies Allergy/AdvReac Type Severity Reaction Status Date / Time Sulfa (Sulfonamide Allergy Unknown Unknown Verified 09/16/24 08:24 Antibiotics) Vital Signs Vital Signs - 24 hr 09/16/24 08:21 09/16/24 10:01 09/16/24 11:53 Temperature 97.3 F L Pulse Rate 68 66 64 Respiratory Rate 16 16 18 Blood Pressure 96/50 L 115/55 L 110/47 L Pulse Oximetry 98 97 93 Oxygen Delivery Room Air Exam Narrative: General: well appearing, appears stated age. HEENT: normocephalic, atraumatic. Mucous membranes moist. EOMI, PERRLA, bilateral sclera anicteric, no conjunctival injection. Neck supple without JVD, lymphadenopathy, or bruit. Respiratory: clear to ascultation bilaterally. No rales/rhonic/wheezes. Cardiovascular: Regular rate and rhythm, normal S1-S2 upon ascultation. No murmurs, rubs, or clicks. PMI is nondisplaced, capillary refill less than 3 sec ond. Abdomen: Soft, round, no pulsatile masses, nondistended and nontender. No rebound, no guarding. No CVA tenderness, no hepatosplenomegaly. Bowel sounds present to all four quadrants. No high pitch or tinkling sounds, resonant to percussion. Extremities: No cyanosis, clubbing, or edema present. Pulses are palpable 2/2. Active ROM to all four extremities. Neuro: Alert and orientated x 4. PERRLA. Cranial nerves 2-12 intact without focal deficit. Skin: Warm, dry, and intact, without rash, erythema, or lesion. Psych: pleasant, cooperative, normal speech, normal affect, no hallucinations, no dysarthia H&P: Results Labs Labs: Short CBC 09/16/24 Range/Units 08:53 WBC 15.1 H (4.5-10.0) K/mm3 Hgb 15.5 H (12.0-15.0) g/dL Hct 48.8 H (37.0-47.0) % Plt Count 274 (150-375) k/mm3 BMP 09/16/24 08:53 Sodium 136 L Potassium 4.5 Chloride 98 Carbon Dioxide 30 BUN 16 Creatinine 0.77 Glucose 110 Calcium 9.2 Liver Function 09/16/24 Range/Units 08:53 Total Bilirubin 1.6 H (0.2-1.3) mg/dL AST 39 H (14-36) U/L ALT 22 (6-35) U/L Alkaline Phosphatase 138 H (38-126) U/L Albumin 4.2 (3.5-5.1) g/dL Urine 09/16/24 Range/Units 08:46 Urine Color Dark yellow (Yellow) Urine Appearance Cloudy H (Clear) Urine pH 5.5 (5.0-9.0) Ur Specific [place] 1.023 (1.001-1.035) Urine Protein Trace (Negative) mg/dL Urine Glucose (UA) Negative (Negative) mg/dL Assessment and Plan Assessment and plan (1) Mass of colon: Code(s): K63.89 - Other specified diseases of intestine Status: Acute Assessment and Plan: Surgery consulted with recommendations for IV antibiotics, bowel rest, GI consultation for possible scope GI consulted-loses its most likely acute diverticulitis IV Flagyl and Zosyn Clear liquid diet Follow-up outpatient 6 weeks for colonoscopy (2) Hypothyroidism (acquired): Code(s): E03.9 - Hypothyroidism, unspecified Status: Acute Assessment and Plan: Continue levothyroxine (3) Hyperlipidemia: Qualifiers: Hyperlipidemia type: unspecified Qualified Code(s): E78.5 - Hype rlipidemia, unspecified Code(s): E78.5 - Hyperlipidemia, unspecified Status: Acute Assessment and Plan: Continue statin (4) Grade II diastolic dysfunction: Code(s): I51.89 - Other ill-defined heart diseases Status: Acute Assessment and Plan: 12/27/2021 last echo in our system 60-65% grade 2 diastolic dysfunction Gentle IV hydration Monitor for fluid overload (5) Benign essential hypertension: Code(s): I10 - Essential (primary) hypertension Status: Acute Assessment and Plan: Continue valsartan, Quality VTE Prophylaxis VTE prophylaxis: mechanical ordered Hospitalist MIPS Advance Care Plan I have confirmed that the patient's Advanced Care Plan is present, code status is documented, or surrogate decision maker is listed in patient medical record.: Yes Medication Reconciliation I have utilized all available resources to obtain, update and review the patients current medications (includes all prescriptions, OTC, herbals, cannabis, and nutritional supplements).: Yes
[2024-09-16 13:47] VITALS: BMI 24.5
--- NOTE | 2024-09-16 13:52 | ADMGEN ---
This patient, Sherrie Vasquez, was admitted to 3 [facility] Surg Room 309-01. Patient/family oriented to hospital policies and general routines including ID bracelet, bed and alarms, visiting hours, pain management, procedures, bathroom and other care routines, personal items, smoking policy, room service/diet, and visiting hours. Information on how to activate the Rapid Response Team has been discussed. Patient/Family are encouraged to report perceived risks to care and to ask questions if they do not understand what they are told or what they should do.
[2024-09-16 14:00] VITALS: BP 111/90; PULSE 66; RESP 16; TEMP 36.6; O2SAT 99
[2024-09-16] MEDS: SODIUM CHLORIDE 0.9% IV 1,000 ML 100 ML IV CONT (15:00)
--- NOTE | 2024-09-16 16:46 | P.CONGI_ITS ---
Assessment and Plan Assessment and plan (1) Sigmoid diverticulitis: Code(s): K57.32 - Diverticulitis of large intestine without perforation or abscess without bleeding Status: Acute Assessment and Plan: The patient's presentation is consistent with acute diverticulitis, complicated by possible mass effect from sigmoid inflammation. This clinical suspicion is supported by physical examination findings and an elevated white blood cell count. While a sigmoid neoplasm remains a possible differential diagnosis, immediate colonic manipulation carries a significant risk of perforation. Therefore, we recommend continuing antibiotic therapy with Zosyn alone, given its excellent anaerobic coverage. Outpatient continuation of this treatment is advised. A CBC, CRP and procalcitonin will be obtained in 48 hours. If the patient's condition stabilizes, discharge is appropriate, with a follow-up appointment scheduled for an elective colonoscopy no sooner than six weeks post- resolution of the acute diverticulitis, as per current guidelines. GI Consult Note Consult date/time: 09/16/24 16:46 HPI: Marisa Vasquez, an 84-year-old female, presented three days ago with moderate, sharp left lower quadrant abdominal pain accompanied by several episodes of diarrhea. She denies rectal bleeding, vomiting, or fever. She reports no prior history of diverticulitis and states her bowel habits have been consistently normal. A CT scan revealed pericolonic stranding and a possible sigmoid mass. She has no personal or family history of cancer and denies unintentional weight loss. At the time of this consultation, her pain has significantly improved following initiation of antibiotic therapy. Review of Systems 2 Review of Systems: All systems reviewed & are unremarkable except as noted in HPI and below PMFSH Past Medical History Medical History Sacroiliac joint pain Yeast infection Dysuria Night sweats Urinary frequency Rash Depression Vitamin D deficiency History of kidney stones Stress Acute sinusitis Encounter for routine adult health examination without abnormal findings Cardiac calcification Impaired functional mobility, balance, gait, and endurance Encounter for Medicare annual wellness exam BMI 25.0-25.9,adult Lung nodule Tricuspid valve regurgitation Grade II diastolic dysfunction Follow up Viral warts Ganglion cyst of finger Elective procedure for unacceptable cosmetic appearance Heart murmur Hypothyroidism (acquired) Carotid bruit Hemochromatosis Benign familial tremor 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 BMI 24.0-24.9, adult Encounter to establish care Internal hemorrhoids Esophageal varices Gastric nodule Esophagitis Hyperlipidemia Benign essential hypertension High cholesterol Thyroid disease Surgical History Surgical History H/O colonoscopy History of esophagogastroduodenoscopy (EGD) H/O oophorectomy Family History Family History Father Idiopathic Parkinson's disease Mother Heart disease Sibling Malignant neoplasm of prostate Son Diabetes mellitus Social History Social History Smoking status: Never smoker Alcohol intake: current Alcohol use details: occasional Substance use: never Do You Feel Safe in your Home?: Yes Lack of Transportation: No Lack of Food: Never True Current Housing: I Have Housing Concerned About Future Housing: No Difficulty Paying Gas/Electric Bills: No Difficulty Paying for Meds: No Currently Unemployed: No Education: High School Diploma/GED Difficulty w/ Childcare or Family Care: No Living arrangements: alone Additional living arrangements comments: at home with some hired hands 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 care concerns: No Agree to blood products: Yes Meds Home Medications and Allergies Home Medications ?Medication ?Instructions ?Recorded ?Confirmed ?Type albuterol sulfate 90 mcg/actuation 1 puff inhalation Q4H PRN 12/23/21 09/16/24 History aerosol inhaler (Ventolin HFA) shortness of breath or wheezing cholecalciferol (vitamin D3) 50 50 mcg PO DAILY 09/09/22 09/16/24 History mcg (2,000 unit) capsule levothyroxine 75 mcg tablet 75 mcg PO DAILY #90 tabs 06/06/24 09/16/24 Rx propranolol 80 mg capsule,24 See Rx Instructions .Route 06/27/24 09/16/24 Rx hr,extended release .COMPLEX #90 caps escitalopram oxalate 10 mg tablet See Rx Instructions .Route 07/18/24 09/16/24 Rx .COMPLEX #90 tabs valsartan 320 mg tablet See Rx Instructions .Route 07/22/24 09/16/24 Rx .COMPLEX #90 tabs atorvastatin 80 mg tablet See Rx Instructions .Route 08/08/24 09/16/24 Rx .COMPLEX #90 tabs amlodipine 5 mg tablet See Rx Instructions .Route 08/25/24 09/16/24 Rx .COMPLEX #45 tabs gabapentin 300 mg capsule 300 mg PO QPM 09/16/24 09/16/24 History nystatin-triamcinolone 100,000 1 applic topical BID PRN itching 09/16/24 09/16/24 History unit/g-0.1 % topical cream Allergies Allergy/AdvReac Type Severity Reaction Status Date / Time Sulfa (Sulfonamide Allergy Unknown Unknown Verified 09/16/24 08:24 Antibiotics) Vital Signs Vital Signs - 24 hr 09/16/24 08:21 09/16/24 10:01 09/16/24 11:53 Temperature 97.3 F L Pulse Rate 68 66 64 Respiratory Rate 16 16 18 Blood Pressure 96/50 L 115/55 L 110/47 L Pulse Oximetry 98 97 93 Oxygen Delivery Room Air 09/16/24 14:00 Temperature 97.8 F Pulse Rate 66 Respiratory Rate 16 Blood Pressure 111/90 Pulse Oximetry 99 Oxygen Delivery Exam 2 Narrative: Alert and oriented x3. Lungs and cardiovascular: Normal Abdomen: Soft, mildly to moderately tenderness to deep palpation in left lower quadrant, no rebound. No palpable mass, no hepatosplenomegaly. Extremities: No edema. Neurologically: Intact. Results Labs 09/16/24 08:53 09/16/24 08:53 Labs: Short CBC 09/16/24 Range/Units 08:53 WBC 15.1 H (4.5-10.0) K/mm3 Hgb 15.5 H (12.0-15.0) g/dL Hct 48.8 H (37.0-47.0) % Plt Count 274 (150-375) k/mm3 BMP 09/16/24 08:53 Sodium 136 L Potassium 4.5 Chloride 98 Carbon Dioxide 30 BUN 16 Creatinine 0.77 Glucose 110 Calcium 9.2 Liver Function 09/16/24 Range/Units 08:53 Total Bilirubin 1.6 H (0.2-1.3) mg/dL AST 39 H (14-36) U/L ALT 22 (6-35) U/L Alkaline Phosphatase 138 H (38-126) U/L Albumin 4.2 (3.5-5.1) g/dL Urine 09/16/24 Range/Units 08:46 Urine Color Dark yellow (Yellow) Urine Appearance Cloudy H (Clear) Urine pH 5.5 (5.0-9.0) Ur Specific [place] 1.023 (1.001-1.035) Urine Protein Trace (Negative) mg/dL Urine Glucose (UA) Negative (Negative) mg/dL
[2024-09-16] MEDS: PIPERACILLIN/TAZ 2.25G/NS 50ML 2.25 GM/50 ML BAG IVPB (17:38)
[2024-09-16 20:58] VITALS: BP 110/74; PULSE 65; RESP 16; TEMP 36.6; O2SAT 100
[2024-09-16] MEDS: GABAPENTIN 300 MG CAPSULE PO (22:11)
[2024-09-17] MEDS: PIPERACILLIN/TAZ 2.25G/NS 50ML 2.25 GM/50 ML BAG IVPB ×3 (00:53→12:32)
[2024-09-17 04:36] VITALS: BP 105/65; PULSE 83; RESP 16; TEMP 37; O2SAT 96
[2024-09-17] MEDS: SODIUM CHLORIDE 0.9% IV 1,000 ML 100 ML IV CONT (05:36)
[2024-09-17] MEDS: LEVOTHYROXINE SODIUM 75 MCG TABLET PO (05:37)
[2024-09-17 06:09] LABS: Basophils Absolute Auto 0.1 K/mm3 (0.0-0.1); Basophils Percent Auto 0.9 % (0.2-1.2); Eosinophils Absolute Auto 0.2 K/mm3 (0-0.3); Eosinophils Percent Auto 1.7 % (0-4.4); Hematocrit 40.4 % (37.0-47.0); Hemoglobin 12.7 g/dL (12.0-15.0); Immature Granulocyte Absolute 0.02 K/mm3 (0.00-0.031); Immature Granulocyte Percent A 0.2 % (0-0.5); Lymphocytes Absolute Auto 1.93 K/mm3 (0.9-3.2); Lymphocytes Percent Auto 21.5 % (18.3-44.2); Mean Corpuscular HGB Conc 31.4 g/dl (32-36); Mean Corpuscular Hemoglobin 26.6 pg (26-34); Mean Corpuscular Volume 84.7 fl (80-100); Mean Platelet Volume 11.9 fl (7.4-10.4); Monocytes Absolute Auto 0.9 K/mm3 (0.1-0.6); Neutrophils Absolute Auto 5.9 K/mm3 (1.3-6.7); Neutrophils Percent Auto 65.7 % (45.5-73.1); Platelet Count Result 227 k/mm3 (150-375); Red Blood Count 4.77 M/mm3 (4.2-5.4); Red Cell Distribution Width 14.7 % (11.5-14.5)
[2024-09-17 06:21] LABS: Alanine Aminotransferase 17 U/L (6-35); Albumin Level 3.1 g/dL (3.5-5.1); Alkaline Phosphatase 99 U/L (38-126); Anion Gap 5 mmol/L (4-12); Aspartate Amino Transferase 29 U/L (14-36); Bilirubin,Total 1.3 mg/dL (0.2-1.3); Blood Urea Nitrogen 10 mg/dL (7-17); Calcium 8.1 mg/dL (8.4-10.2); Carbon Dioxide 28 mmol/L (22-30); Chloride 103 mmol/L (98-107); Estimated CRCL calculation 37 ml/min; Estimated Glomerular Filt Rate > 60; Glucose 98 mg/dL (65-110); Potassium 3.8 mmol/L (3.4-5.0); Sodium 136 mmol/L (137-145)
[2024-09-17] MEDS: ATORVASTATIN 40 MG TABLET 80 MG BY MOUTH (09:27)
[2024-09-17] MEDS: VALSARTAN 160 MG TABLET 320 MG PO (09:27)
[2024-09-17] MEDS: amLODIPine BESYLATE 2.5 MG TABLET BY MOUTH (09:27)
[2024-09-17] MEDS: ESCITALOPRAM OXALATE 10 MG TABLET BY MOUTH (09:27)
--- NOTE | 2024-09-17 10:41 | PM.PNGS ---
Progress Note: A&P Assessment and Plan (1) Sigmoid diverticulitis: Code(s): K57.32 - Diverticulitis of large intestine without perforation or abscess without bleeding Status: Acute Assessment and Plan: much improved, exam benign, tolerating clears and will advance to a low-fiber diet, continue antibiotics, home soon if tolerating diet Subjective Subjective Date/Time Seen: 09/17/24 10:41 Interval history: feels much better today, minimal pain in left lower quadrant, tolerating clear liquid diet Review of Systems Review of Systems: All systems reviewed & are unremarkable except as noted in HPI and below Exam Const: General: cooperative, comfortable and no acute distress Resp: Auscultation: clear to auscultation bilaterally Cardio: Rate: regular rate Rhythm: regular rhythm GI: Inspection: normal to inspection and non-distended GI Palp: Yes abdominal tenderness, Yes Soft to palpation, No Guarding due to palpation present (GI) and No Rigid due to palpation Objective Data Vital Signs Vital Signs: Vital Signs - 24 hr 09/16/24 11:53 09/16/24 14:00 09/16/24 20:58 Temperature 36.6 C 36.6 C Pulse Rate 64 66 65 Respiratory Rate 18 16 16 Blood Pressure 110/47 L 111/90 110/74 Pulse Oximetry 93 99 100 09/17/24 04:36 Temperature 37.0 C Pulse Rate 83 Respiratory Rate 16 Blood Pressure 105/65 Pulse Oximetry 96 Intake/Output Intake/Output: Intake & Output 09/14/24 09/15/24 09/16/24 09/17/24 23:59 23:59 23:59 23:59 Intake Total 818 1680 Balance 818 1680 Meds/Results Medications: Active Medications Generic Name Dose Route Start Last Admin Trade Name Freq PRN Reason Stop Dose Admin Acetaminophen 650 mg 09/16/24 11:32 Acetaminophen 325 Mg Tablet PO Q4H PRN Mild Pain (1-3) or Fever Albuterol 1 puff 09/16/24 20:47 Albuterol Sulfate (*Sp) Aerosol 1 Puff INHALATION Q4H PRN shortness of breath or wheezing Amlodipine Besylate 2.5 mg 09/17/24 09:00 09/17/24 09:27 Amlodipine Besylate 2.5 Mg Tablet BY MOUTH 2.5 mg DAILY MARKUS Administration Atorvastatin Calcium 80 mg 09/17/24 09:00 09/17/24 09:27 Atorvastatin 40 Mg Tablet BY MOUTH 80 mg DAILY MARKUS Administration Escitalopram Oxalate 10 mg 09/17/24 09:00 09/17/24 09:27 Escitalopram Oxalate 10 Mg Tablet BY MOUTH 10 mg DAILY MARKUS Administration Gabapentin 300 mg 09/16/24 20:55 09/16/24 22:11 Gabapentin 300 Mg Capsule PO 300 mg QPM MARKUS Administration Piperacillin Sod/Tazobactam Sod 2.25 gm in 50 mls @ 100 mls/hr 09/16/24 18:00 09/17/24 05:36 Zosyn 2.25 Gm/Ns 50 Ml IVPB 100 mls/hr Q6HR MARKUS Administration Sodium Chloride 1,000 mls @ 100 mls/hr 09/16/24 13:05 09/17/24 05:36 Normal Saline Iv IV CONT 100 mls/hr .Q10H MARKUS Administration Levothyroxine Sodium 75 mcg 09/17/24 06:30 09/17/24 05:37 Levothyroxine Sodium 75 Mcg Tablet PO 75 mcg DAILY@0630 MARKUS Administration Miscellaneous Information 1 each 09/17/24 00:01 Propranolol Cr 80 Mg Is Nonform; Can Pt Use From Home/ Or Switch To Regular Propranolol 40 XX 10/17/24 00:00 CLARIFY [facility] Non-Formulary Medication 0 mg 09/16/24 21:00 Propranolol .ROUTE 10/17/24 20:59 .COMPLEX MARKUS Ondansetron HCl 4 mg 09/16/24 11:32 Ondansetron Inj 4 Mg/2 Ml Vial IV PUSH Q4H PRN Nausea Valsartan 320 mg 09/17/24 09:00 09/17/24 09:27 Valsartan 160 Mg Tablet PO 320 mg DAILY MARKUS Administration Radiology Results: ITS Impressions Abdomen/Pelvis CT 09/16/24 10:00 IMPRESSION: 1. Possible mass in the sigmoid colon. Sigmoidoscopy is advised. Diverticulitis is less likely, Although not excluded. 2. Cholelithiasis. Labs Labs: Laboratory Results - last 24 hr 09/17/24 05:57 WBC 9.0 RBC 4.77 Hgb 12.7 Hct 40.4 MCV 84.7 MCH 26.6 MCHC 31.4 L RDW 14.7 H Plt Count 227 MPV 11.9 H Immature Gran % (Auto) 0.2 Neut % (Auto) 65.7 Lymph % (Auto) 21.5 [place] % (Auto) 10.0 H Eos % (Auto) 1.7 Baso % (Auto) 0.9 Lymph # (Auto) 1.93 [place] # (Auto) 0.9 H Eos # (Auto) 0.2 Baso # (Auto) 0.1 Abs Immat Gran (auto) 0.02 Absolute Neuts (auto) 5.9 Absolute Nucleated RBC 0.000 Nucleated RBC % 0.0 Sodium 136 L Potassium 3.8 Chloride 103 Carbon Dioxide 28 Anion Gap 5 BUN 10 D Creatinine 0.69 L Estim Creat Clear Calc 37 Estimated GFR > 60 Glucose 98 Calcium 8.1 L Total Bilirubin 1.3 AST 29 ALT 17 Alkaline Phosphatase 99 Total Protein 5.0 L Albumin 3.1 L
--- NOTE | 2024-09-17 11:58 | PM.IMPN ---
Progress Note: A&P Assessment and Plan (1) Mass of colon: Code(s): K63.89 - Other specified diseases of intestine Status: Acute (2) Hypothyroidism (acquired): Code(s): E03.9 - Hypothyroidism, unspecified Status: Acute Assessment and Plan: Continue Synthroid (3) Hyperlipidemia: Qualifiers: Hyperlipidemia type: unspecified Qualified Code(s): E78.5 - Hyperlipidemia, unspecified Code(s): E78.5 - Hyperlipidemia, unspecified Status: Acute Assessment and Plan: Continue atorvastatin (4) Hypotension: Code(s): I95.9 - Hypotension, unspecified Status: Acute Assessment and Plan: Blood pressures ranging with systolics in the 80s since receiving her valsartan and amlodipine this morning Patient normally ranges with systolic blood pressures of 120-130 She appears euvolemic now, she was dehydrated on admission and received IV fluids Albumin 3.1 today we will go ahead and give 12.5 g x1 now Continue to monitor Will hold valsartan, amlodipine, propranolol Time Spent With Patient Time with patient: 25 - 35 minutes Subjective Date/time seen: 09/17/24 11:58 Interval history: Interval summary: This is an 84-year-old female with a significant past medical history of hypertension, diverticulosis, hyperlipidemia, hypothyroidism, esophageal varices who presented to the hospital with left lower abdominal pain with associated diarrhea. Workup in the hospital included an abdomen/pelvis CT which showed possible mass in the sigmoid colon, cholelithiasis. Initial labs shown a white blood cell count of 15.1, hemoglobin 15.5, sodium 136, total bili 1.6, AST 39, ALT 22, alkaline phosphate 138, lipase 68. UA was obtained and showed cloudy urine appearance, trace ketone, otherwise negative. Patient was started on Zosyn and Flagyl and given morphine for pain while in the ED. GI and General surgery were consulted. Subjective: Patient denies any new complaints today. Nursing has reported low blood pressures since this morning after giving her home medications of Losartan and amlodipine. Her propranolol has been on hold as well. Labs reviewed and appears that she is now euvolemic on review. Albumin is slightly low. Review of Systems Review of Systems: 12 systems were reviewed and are negative except for as per HPI. All systems reviewed & are unremarkable except as noted in HPI and below Exam Narrative: General: In no acute distress, well nourished Head: atraumatic, no encephalopathy Eyes: PERRLA, sclera clear ENT: moist mucous membranes, nasal passages clear Neck: supple, no JVD, no adenopathy, trachea midline Cardiac: Normal S1 and S2. No murmur, gallops or friction rubs, peripheral pulses intact. Respiratory: Lungs clear to auscultation, no adventitious lung sounds, currently on room air Gastrointestinal: soft, non-distended, non-tender, normoactive bowel sounds. : voiding without difficulty. Extremities: moves all extremities well, no edema Skin: clean, dry, intact. No wounds or lesions. Neuro: Alert and oriented x4, cranial nerves intact, no neuro deficits. Psych: normal mood, normal affect, interactive Objective Data Vital Signs Vital Signs: Vital Signs - 24 hr 09/16/24 14:00 09/16/24 20:58 09/17/24 04:36 Temperature 97.8 F 97.9 F 98.6 F Pulse Rate 66 65 83 Respiratory Rate 16 16 16 Blood Pressure 111/90 110/74 105/65 Pulse Oximetry 99 100 96 Intake/Output Intake/Output: Intake & Output 09/14/24 09/15/24 09/16/24 09/17/24 23:59 23:59 23:59 23:59 Intake Total 818 1680 Balance 818 1680 Meds/Results Medications: Active Medications Generic Name Dose Route Start Last Admin Trade Name Freq PRN Reason Stop Dose Admin Acetaminophen 650 mg 09/16/24 11:32 Acetaminophen 325 Mg Tablet PO Q4H PRN Mild Pain (1-3) or Fever Albuterol 1 puff 09/16/24 20:47 Albuterol Sulfate (*Sp) Aerosol 1 Puff INHALATION Q4H PRN shortness of breath or wheezing Amlodipine Besylate 2.5 mg 09/17/24 09:00 09/17/24 09:27 Amlodipine Besylate 2.5 Mg Tablet BY MOUTH 2.5 mg DAILY MARKUS Administration Atorvastatin Calcium 80 mg 09/17/24 09:00 09/17/24 09:27 Atorvastatin 40 Mg Tablet BY MOUTH 80 mg DAILY MARKUS Administration Escitalopram Oxalate 10 mg 09/17/24 09:00 09/17/24 09:27 Escitalopram Oxalate 10 Mg Tablet BY MOUTH 10 mg DAILY MARKUS Administration Gabapentin 300 mg 09/16/24 20:55 09/16/24 22:11 Gabapentin 300 Mg Capsule PO 300 mg QPM MARKUS Administration Piperacillin Sod/Tazobactam Sod 2.25 gm in 50 mls @ 100 mls/hr 09/16/24 18:00 09/17/24 05:36 Zosyn 2.25 Gm/Ns 50 Ml IVPB 100 mls/hr Q6HR MARKUS Administration Sodium Chloride 1,000 mls @ 100 mls/hr 09/16/24 13:05 09/17/24 05:36 Normal Saline Iv IV CONT 100 mls/hr .Q10H MARKUS Administration Levothyroxine Sodium 75 mcg 09/17/24 06:30 09/17/24 05:37 Levothyroxine Sodium 75 Mcg Tablet PO 75 mcg DAILY@0630 MARKUS Administration Miscellaneous Information 1 each 09/17/24 00:01 Propranolol Cr 80 Mg Is Nonform; Can Pt Use From Home/ Or Switch To Regular Propranolol 40 XX 10/17/24 00:00 CLARIFY COUNTS INCLUDE 234 BEDS AT THE [facility] Non-Formulary Medication 0 mg 09/16/24 21:00 Propranolol .ROUTE 10/17/24 20:59 .COMPLEX MARKUS Ondansetron HCl 4 mg 09/16/24 11:32 Ondansetron Inj 4 Mg/2 Ml Vial IV PUSH Q4H PRN Nausea Valsartan 320 mg 09/17/24 09:00 09/17/24 09:27 Valsartan 160 Mg Tablet PO 320 mg DAILY MARKUS Administration Radiology Results: ITS Impressions Abdomen/Pelvis CT 09/16/24 10:00 IMPRESSION: 1. Possible mass in the sigmoid colon. Sigmoidoscopy is advised. Diverticulitis is less likely, Although not excluded. 2. Cholelithiasis. Labs Labs: Laboratory Results - last 24 hr 09/17/24 05:57 WBC 9.0 RBC 4.77 Hgb 12.7 Hct 40.4 MCV 84.7 MCH 26.6 MCHC 31.4 L RDW 14.7 H Plt Count 227 MPV 11.9 H Immature Gran % (Auto) 0.2 Neut % (Auto) 65.7 Lymph % (Auto) 21.5 [place] % (Auto) 10.0 H Eos % (Auto) 1.7 Baso % (Auto) 0.9 Lymph # (Auto) 1.93 [place] # (Auto) 0.9 H Eos # (Auto) 0.2 Baso # (Auto) 0.1 Abs Immat Gran (auto) 0.02 Absolute Neuts (auto) 5.9 Absolute Nucleated RBC 0.000 Nucleated RBC % 0.0 Sodium 136 L Potassium 3.8 Chloride 103 Carbon Dioxide 28 Anion Gap 5 BUN 10 D Creatinine 0.69 L Estim Creat Clear Calc 37 Estimated GFR > 60 Glucose 98 Calcium 8.1 L Total Bilirubin 1.3 AST 29 ALT 17 Alkaline Phosphatase 99 Total Protein 5.0 L Albumin 3.1 L Quality VTE Prophylaxis VTE prophylaxis: mechanical ordered
--- NOTE | 2024-09-17 12:24 | WPDGIPROGNO ---
Progress Note: A&P Assessment and Plan (1) Sigmoid diverticulitis: Code(s): K57.32 - Diverticulitis of large intestine without perforation or abscess without bleeding Status: Acute Assessment and Plan: the patient is doing well with treatment for diverticulitis which is the most likely cause of her clinical and radiologic findings. She is willing to be discharged on antibiotics, to complete a 10 day treatment. This is provided she tolerates a full diet today. Her white count has normalized and her overall clinical status is stable. However, it is very important to set up an appointment for a colonoscopy in about 6-8 weeks, to define if this is in fact just an episode of diverticulitis versus a preexistent colonic mass. Plan - if pt tolerates regular diet she can be discharged on Augmentin 1 g biD for 10 days - Appointment to be arranged for GI clinic and/or her primary care provider to schedule a colonoscopy no sooner than 6 weeks after discharge Subjective Date/time seen: 09/17/24 12:24 Interval history: The patient feel much better, no abdominal pain. tolerated diet. Exam Narrative: Abdomen: Soft, nontender, nondistended, no rebound. Rest of the examination within normal limits. Objective Data Vital Signs Vital Signs: Vital Signs - 24 hr 09/16/24 14:00 09/16/24 20:58 09/17/24 04:36 Temperature 97.8 F 97.9 F 98.6 F Pulse Rate 66 65 83 Respiratory Rate 16 16 16 Blood Pressure 111/90 110/74 105/65 Pulse Oximetry 99 100 96 Intake/Output Intake/Output: Intake & Output 09/14/24 09/15/24 09/16/24 09/17/24 23:59 23:59 23:59 23:59 Intake Total 818 1680 Balance 818 1680 Meds/Results Medications: Active Medications Generic Name Dose Route Start Last Admin Trade Name Freq PRN Reason Stop Dose Admin Acetaminophen 650 mg 09/16/24 11:32 Acetaminophen 325 Mg Tablet PO Q4H PRN Mild Pain (1-3) or Fever Albuterol 1 puff 09/16/24 20:47 Albuterol Sulfate (*Sp) Aerosol 1 Puff INHALATION Q4H PRN shortness of breath or wheezing Amlodipine Besylate 2.5 mg 09/17/24 09:00 09/17/24 09:27 Amlodipine Besylate 2.5 Mg Tablet BY MOUTH 2.5 mg DAILY MARKUS Administration Atorvastatin Calcium 80 mg 09/17/24 09:00 09/17/24 09:27 Atorvastatin 40 Mg Tablet BY MOUTH 80 mg DAILY MARKUS Administration Escitalopram Oxalate 10 mg 09/17/24 09:00 09/17/24 09:27 Escitalopram Oxalate 10 Mg Tablet BY MOUTH 10 mg DAILY MARKUS Administration Gabapentin 300 mg 09/16/24 20:55 09/16/24 22:11 Gabapentin 300 Mg Capsule PO 300 mg QPM MARKUS Administration Piperacillin Sod/Tazobactam Sod 2.25 gm in 50 mls @ 100 mls/hr 09/16/24 18:00 09/17/24 05:36 Zosyn 2.25 Gm/Ns 50 Ml IVPB 100 mls/hr Q6HR MARKUS Administration Sodium Chloride 1,000 mls @ 100 mls/hr 09/16/24 13:05 09/17/24 05:36 Normal Saline Iv IV CONT 100 mls/hr .Q10H MARKUS Administration Levothyroxine Sodium 75 mcg 09/17/24 06:30 09/17/24 05:37 Levothyroxine Sodium 75 Mcg Tablet PO 75 mcg DAILY@0630 MARKUS Administration Miscellaneous Information 1 each 09/17/24 00:01 Propranolol Cr 80 Mg Is Nonform; Can Pt Use From Home/ Or Switch To Regular Propranolol 40 XX 10/17/24 00:00 CLARIFY [facility] Non-Formulary Medication 0 mg 09/16/24 21:00 Propranolol .ROUTE 10/17/24 20:59 .COMPLEX MARKUS Ondansetron HCl 4 mg 09/16/24 11:32 Ondansetron Inj 4 Mg/2 Ml Vial IV PUSH Q4H PRN Nausea Valsartan 320 mg 09/17/24 09:00 09/17/24 09:27 Valsartan 160 Mg Tablet PO 320 mg DAILY MARKUS Administration Radiology Results: ITS Impressions Abdomen/Pelvis CT 09/16/24 10:00 IMPRESSION: 1. Possible mass in the sigmoid colon. Sigmoidoscopy is advised. Diverticulitis is less likely, Although not excluded. 2. Cholelithiasis. Labs Labs: Laboratory Results - last 24 hr 09/17/24 05:57 WBC 9.0 RBC 4.77 Hgb 12.7 Hct 40.4 MCV 84.7 MCH 26.6 MCHC 31.4 L RDW 14.7 H Plt Count 227 MPV 11.9 H Immature Gran % (Auto) 0.2 Neut % (Auto) 65.7 Lymph % (Auto) 21.5 [place] % (Auto) 10.0 H Eos % (Auto) 1.7 Baso % (Auto) 0.9 Lymph # (Auto) 1.93 [place] # (Auto) 0.9 H Eos # (Auto) 0.2 Baso # (Auto) 0.1 Abs Immat Gran (auto) 0.02 Absolute Neuts (auto) 5.9 Absolute Nucleated RBC 0.000 Nucleated RBC % 0.0 Sodium 136 L Potassium 3.8 Chloride 103 Carbon Dioxide 28 Anion Gap 5 BUN 10 D Creatinine 0.69 L Estim Creat Clear Calc 37 Estimated GFR > 60 Glucose 98 Calcium 8.1 L Total Bilirubin 1.3 AST 29 ALT 17 Alkaline Phosphatase 99 Total Protein 5.0 L Albumin 3.1 L
--- NOTE | 2024-09-17 14:47 | P.DS_ITS ---
DS: Admitting Diagnosis Discharge Date 09/17/24 DS: Summary Time Spent with Patient Time attestation: Total time spent providing and/or coordinating discharge services: DS: Data Data Completed and Pending Labs on day of discharge: Labs from last 24 hours 09/17/24 05:57 WBC 9.0 RBC 4.77 Hgb 12.7 Hct 40.4 MCV 84.7 MCH 26.6 MCHC 31.4 L RDW 14.7 H Plt Count 227 MPV 11.9 H Immature Gran % (Auto) 0.2 Neut % (Auto) 65.7 Lymph % (Auto) 21.5 [place] % (Auto) 10.0 H Eos % (Auto) 1.7 Baso % (Auto) 0.9 Lymph # (Auto) 1.93 [place] # (Auto) 0.9 H Eos # (Auto) 0.2 Baso # (Auto) 0.1 Abs Immat Gran (auto) 0.02 Absolute Neuts (auto) 5.9 Absolute Nucleated RBC 0.000 Nucleated RBC % 0.0 Sodium 136 L Potassium 3.8 Chloride 103 Carbon Dioxide 28 Anion Gap 5 BUN 10 D Creatinine 0.69 L Estim Creat Clear Calc 37 Estimated GFR > 60 Glucose 98 Calcium 8.1 L Total Bilirubin 1.3 AST 29 ALT 17 Alkaline Phosphatase 99 Total Protein 5.0 L Albumin 3.1 L Discharge Plan Discharge Attending physician on discharge: Iglesia Nelson Consulting providers: Anika Green; Ricardo Dodson Discharging Clinician: Page Dang Anticipated Discharge Date/Time: 09/17/24 14:24 Patient Disposition: Home, Self-Care Activity: as tolerated Diet: as tolerated and low fiber Discharge Instructions: * Finish all of your antibiotics as directed * Follow-up with GI in 6 weeks for colonoscopy Patient Instructions: Antibiotic Form, Amoxicillin/Clavulanate Potassium (By mouth) Patient Language: Maldivian Stand Alone Forms: General Discharge Information Follow-up/Referrals: Luis Chen MD [Primary Care Provider] - 1 Week Ricardo Dodson MD [Physician] - 6 Weeks Discharge Medications: New amlodipine 2.5 mg Tablet 2.5 mg BYMOUTH DAILY Qty: 15 0RF amoxicillin-pot clavulanate 875-125 mg tablet 1 tablet PO Q12H Qty: 20 0RF Continued albuterol sulfate [Ventolin HFA] 90 mcg/actuation HFA aerosol inhaler 1 puff inhalation Q4H PRN (Reason: shortness of breath or wheezing) nystatin-triamcinolone 100,000-0.1 unit/g-% cream 1 applic topical BID PRN (Reason: itching) Patient Comments: apply to affected areas gabapentin 300 mg capsule 300 mg PO QPM cholecalciferol (vitamin D3) 50 mcg (2,000 unit) capsule 50 mcg PO DAILY levothyroxine 75 mcg tablet 75 mcg PO DAILY Qty: 90 0RF propranolol 80 mg capsule,extended release 24 hr See Rx Instructions .ROUTE .COMPLEX Qty: 90 1RF Dose Instruction: TAKE 1 CAPSULE BY MOUTH EVERY DAY Rx Instructions: TAKE 1 CAPSULE BY MOUTH EVERY DAY escitalopram oxalate 10 mg tablet See Rx Instructions .ROUTE .COMPLEX Qty: 90 1RF Dose Instruction: TAKE 1 TABLET BY MOUTH EVERY DAY Rx Instructions: TAKE 1 TABLET BY MOUTH EVERY DAY valsartan 320 mg tablet See Rx Instructions .ROUTE .COMPLEX Qty: 90 1RF Dose Instruction: TAKE 1 TABLET BY MOUTH DAILY. Rx Instructions: TAKE 1 TABLET BY MOUTH DAILY. atorvastatin 80 mg tablet See Rx Instructions .ROUTE .COMPLEX Qty: 90 1RF Dose Instruction: TAKE 1 TABLET BY MOUTH EVERY DAY Rx Instructions: TAKE 1 TABLET BY MOUTH EVERY DAY Discontinued amlodipine 5 mg tablet See Rx Instructions .ROUTE .COMPLEX Qty: 45 2RF Dose Instruction: TAKE 1/2 TABLET EVERY DAY Rx Instructions: TAKE 1/2 TABLET EVERY DAY Date of admission: 09/16/24 11:32 Primary Care Provider: Luis Chen Admitting Provider: Iglesia Nelson Attending physician on admission: Page Dang Condition: Improved
[2024-09-17 14:49] VITALS: BP 82/46; PULSE 66; RESP 16; TEMP 36.6; O2SAT 100
[2024-09-17] MEDS: GABAPENTIN 300 MG CAPSULE PO (18:32)
[2024-09-17] MEDS: ALBUMIN HUMAN 25% 12.5 GM/50ML 50 ML IVPB (18:53)
[2024-09-17 20:00] VITALS: PULSE 66; RESP 16; O2SAT 100
[2024-09-17] MEDS: AMOXICILLIN/CLAVULANATE K 875-125 MG TAB 1 TABLET PO (20:43)
[2024-09-17 21:26] VITALS: BP 108/53; PULSE 76; RESP 16; TEMP 36.5; O2SAT 94
[2024-09-18] MEDS: LEVOTHYROXINE SODIUM 75 MCG TABLET PO (05:47)
[2024-09-18 05:55] VITALS: BP 121/61; PULSE 65; RESP 14; TEMP 36.8; O2SAT 96
[2024-09-18 07:16] LABS: CRP 3.5 mg/dL (<1.0)
--- NOTE | 2024-09-18 08:10 | P.DS_ITS ---
DS: Admitting Diagnosis Discharge Date 09/18/24 Admitting Diagnosis Mass of colon Hypothyroidism Hyperlipidemia Grade 2 diastolic dysfunction Hypertension DS: Discharge Diagnosis Discharge Diagnosis (1) Mass of colon: Code(s): K63.89 - Other specified diseases of intestine Status: Acute (2) Hypothyroidism (acquired): Code(s): E03.9 - Hypothyroidism, unspecified Status: Acute (3) Hyperlipidemia: Qualifiers: Hyperlipidemia type: unspecified Qualified Code(s): E78.5 - Hyperlipidemia, unspecified Code(s): E78.5 - Hyperlipidemia, unspecified Status: Acute Assessment and Plan: * Continue atorvastatin (4) Hypotension: Code(s): I95.9 - Hypotension, unspecified Status: Acute DS: Summary Hospital Course Reason for hospitalization: Mass of colon Hypothyroidism Hyperlipidemia Grade 2 diastolic dysfunction Hypertension Hospital Course: This is an 84-year-old female with a significant past medical history of hypertension, diverticulosis, hyperlipidemia, hypothyroidism, esophageal varices who presented to the hospital with left lower abdominal pain with associated diarrhea. Workup in the hospital included an abdomen/pelvis CT which showed possible mass in the sigmoid colon, cholelithiasis. Initial labs shown a white blood cell count of 15.1, hemoglobin 15.5, sodium 136, total bili 1.6, AST 39, ALT 22, alkaline phosphate 138, lipase 68. UA was obtained and showed cloudy urine appearance, trace ketone, otherwise negative. Patient was started on Zosyn and Flagyl and given morphine for pain while in the ED. GI and General surgery were consulted. Mass of colon: Plan for outpatient workup in 6-8 weeks with GI including colonoscopy. Patient will continue on Augmentin for 10 days. Considering she has acute diverticulitis colonoscopy was deemed high risk for perforation during this admission. Patient is stable for discharge at this time. She will need to follow up with her primary care doctor in 1 week and then with GI in 6-8 weeks. Final diagnosis: Mass of colon, acute diverticulitis Status at Discharge Cognitive/behavioral status at discharge: Alert oriented x3 Functional status at discharge: independent ambulation Overall status at discharge: patient is progressing back to baseline Time Spent with Patient Time attestation: Total time spent providing and/or coordinating discharge services: Time spent: Greater than 30 minutes Exam Narrative: General: In no acute distress, well nourished Cardiac: Normal S1 and S2. No murmur, gallops or friction rubs, peripheral pulses intact. Respiratory: Lungs clear to auscultation, no adventitious lung sounds, currently on room air Gastrointestinal: soft, non-distended, non-tender, normoactive bowel sounds. : voiding without difficulty. Neuro: Alert and oriented x4 DS: Data Data Completed and Pending Completed studies during hospitalization: Abdomen/pelvis CT Pending studies at discharge: None Labs on day of discharge: Labs from last 24 hours 09/18/24 09/18/24 06:41 06:40 C-Reactive Protein 3.5 H Procalcitonin 0.0 Procedures/Treatments: None Discharge Plan Discharge Attending physician on discharge: Iglesia Nelson Consulting providers: Anika Green Discharging Clinician: Page Dang Anticipated Discharge Date/Time: 09/17/24 14:24 Patient Disposition: Home, Self-Care Activity: as tolerated Diet: as tolerated and low fiber Discharge Instructions: * Finish all of your antibiotics as directed * Follow-up with GI in 6 weeks for colonoscopy * Check your blood pressure daily and keep a log of this to take to your primary care doctor. You may need your medications adjusted. Patient Instructions: Antibiotic Form, Amoxicillin/Clavulanate Potassium (By mouth) Patient Language: Surinamese Stand Alone Forms: General Discharge Information Follow-up/Referrals: Anika Green MD [Physician] - 2 Weeks Luis Chen MD [Primary Care Provider] - 1 Week Ricardo Dodson MD [Physician] - 6 Weeks Discharge Medications: New amoxicillin-pot clavulanate 875-125 mg tablet 1 tablet PO Q12H Qty: 20 0RF Continued albuterol sulfate [Ventolin HFA] 90 mcg/actuation HFA aerosol inhaler 1 puff inhalation Q4H PRN (Reason: shortness of breath or wheezing) nystatin-triamcinolone 100,000-0.1 unit/g-% cream 1 applic topical BID PRN (Reason: itching) Patient Comments: apply to affected areas gabapentin 300 mg capsule 300 mg PO QPM cholecalciferol (vitamin D3) 50 mcg (2,000 unit) capsule 50 mcg PO DAILY levothyroxine 75 mcg tablet 75 mcg PO DAILY Qty: 90 0RF escitalopram oxalate 10 mg tablet See Rx Instructions .ROUTE .COMPLEX Qty: 90 1RF Dose Instruction: TAKE 1 TABLET BY MOUTH EVERY DAY Rx Instructions: TAKE 1 TABLET BY MOUTH EVERY DAY atorvastatin 80 mg tablet See Rx Instructions .ROUTE .COMPLEX Qty: 90 1RF Dose Instruction: TAKE 1 TABLET BY MOUTH EVERY DAY Rx Instructions: TAKE 1 TABLET BY MOUTH EVERY DAY Held propranolol 80 mg capsule,extended release 24 hr See Rx Instructions .ROUTE .COMPLEX Qty: 90 1RF Hold Instructions: Resume on 09/26/24. Hold until you are evaluated with your primary care doctor Dose Instruction: TAKE 1 CAPSULE BY MOUTH EVERY DAY Rx Instructions: TAKE 1 CAPSULE BY MOUTH EVERY DAY valsartan 320 mg tablet See Rx Instructions .ROUTE .COMPLEX Qty: 90 1RF Hold Instructions: Resume on 09/26/24. Hold until you are evaluated by your primary care doctor. Dose Instruction: TAKE 1 TABLET BY MOUTH DAILY. Rx Instructions: TAKE 1 TABLET BY MOUTH DAILY. amlodipine 5 mg tablet See Rx Instructions .ROUTE .COMPLEX Qty: 45 2RF Hold Instructions: Resume on 09/26/24. Hold until you are evaluated by your primary care doctor Dose Instruction: TAKE 1/2 TABLET EVERY DAY Rx Instructions: TAKE 1/2 TABLET EVERY DAY Date of admission: 09/16/24 11:32 Primary Care Provider: Luis Chen Admitting Provider: Iglesia Nelson Attending physician on admission: Page Dang Condition: Improved Quality VTE Prophylaxis VTE prophylaxis: mechanical ordered Hospitalist MIPS Heart Failure (Exclusion) Patient has history of Heart Transplant or Left Ventricular Assistive Device?: No IF YES, STOP HERE Heart Failure (Qualifier) Patient has current or prior documentation of LVEF less than or equal to 40%, or mod/servere depressed LVSF?: No IF NO, STOP HERE
[2024-09-18] MEDS: ATORVASTATIN 40 MG TABLET 80 MG BY MOUTH (08:37)
[2024-09-18] MEDS: AMOXICILLIN/CLAVULANATE K 875-125 MG TAB 1 TABLET PO (08:37)
[2024-09-18] MEDS: ESCITALOPRAM OXALATE 10 MG TABLET BY MOUTH (08:38)
[2024-09-18 08:41] LABS: Alanine Aminotransferase 17 U/L (6-35); Albumin Level 3.4 g/dL (3.5-5.1); Alkaline Phosphatase 120 U/L (38-126); Anion Gap 6 mmol/L (4-12); Aspartate Amino Transferase 34 U/L (14-36); Blood Urea Nitrogen 8 mg/dL (7-17); Calcium 8.7 mg/dL (8.4-10.2); Carbon Dioxide 29 mmol/L (22-30); Chloride 103 mmol/L (98-107); Estimated CRCL calculation 45 ml/min; Estimated Glomerular Filt Rate > 60; Glucose 99 mg/dL (65-110); Potassium 4.5 mmol/L (3.4-5.0); Sodium 138 mmol/L (137-145)
[2024-09-18 09:20] LABS: Basophils Absolute Auto 0.1 K/mm3 (0.0-0.1); Eosinophils Absolute Auto 0.3 K/mm3 (0-0.3); Hematocrit 45.9 % (37.0-47.0); Hemoglobin 14.9 g/dL (12.0-15.0); Immature Granulocyte Absolute 0.03 K/mm3 (0.00-0.031); Immature Granulocyte Percent A 0.3 % (0-0.5); Lymphocytes Absolute Auto 1.43 K/mm3 (0.9-3.2); Lymphocytes Percent Auto 15.3 % (18.3-44.2); Mean Corpuscular HGB Conc 32.5 g/dl (32-36); Mean Corpuscular Hemoglobin 27.2 pg (26-34); Mean Corpuscular Volume 83.8 fl (80-100); Mean Platelet Volume 11.7 fl (7.4-10.4); Monocytes Absolute Auto 0.7 K/mm3 (0.1-0.6); Neutrophils Absolute Auto 6.9 K/mm3 (1.3-6.7); Neutrophils Percent Auto 73.4 % (45.5-73.1); Platelet Count Result 253 k/mm3 (150-375); Red Blood Count 5.48 M/mm3 (4.2-5.4); Red Cell Distribution Width 14.6 % (11.5-14.5); White Blood Count 9.4 K/mm3 (4.5-10.0)
--- NOTE | 2024-09-18 12:22 | PM.PNGS ---
Progress Note: A&P Assessment and Plan (1) Sigmoid diverticulitis: Code(s): K57.32 - Diverticulitis of large intestine without perforation or abscess without bleeding Status: Acute Assessment and Plan: doing well, exam completely benign, tolerating low-fiber diet, home on low-fiber diet and p.o. antibiotics, follow-up in 2 weeks Subjective Subjective Date/Time Seen: 09/18/24 12:22 Interval history: feels good, tolerating low-fiber diet, no abdominal pain Review of Systems Review of Systems: All systems reviewed & are unremarkable except as noted in HPI and below Exam Const: General: cooperative, comfortable and no acute distress Resp: Auscultation: clear to auscultation bilaterally Cardio: Rate: regular rate Rhythm: regular rhythm GI: Inspection: normal to inspection and non-distended GI Palp: No abdominal tenderness and Yes Soft to palpation Objective Data Vital Signs Vital Signs: Vital Signs - 24 hr 09/17/24 14:49 09/17/24 20:00 09/17/24 21:26 Temperature 36.6 C 36.5 C Pulse Rate 66 66 76 Respiratory Rate 16 16 16 Blood Pressure 82/46 L 108/53 L Pulse Oximetry 100 100 94 Oxygen Delivery Room Air 09/18/24 05:55 Temperature 36.8 C Pulse Rate 65 Respiratory Rate 14 Blood Pressure 121/61 Pulse Oximetry 96 Oxygen Delivery Intake/Output Intake/Output: Intake & Output 09/15/24 09/16/24 09/17/24 09/18/24 23:59 23:59 23:59 23:59 Intake Total 818 2640 670 Balance 818 2640 670 Meds/Results Medications: Active Medications Generic Name Dose Route Start Last Admin Trade Name Freq PRN Reason Stop Dose Admin Acetaminophen 650 mg 09/16/24 11:32 Acetaminophen 325 Mg Tablet PO Q4H PRN Mild Pain (1-3) or Fever Albuterol 1 puff 09/16/24 20:47 Albuterol Sulfate (*Sp) Aerosol 1 Puff INHALATION Q4H PRN shortness of breath or wheezing Amlodipine Besylate 2.5 mg 09/17/24 09:00 09/17/24 09:27 Amlodipine Besylate 2.5 Mg Tablet BY MOUTH 2.5 mg DAILY MARKUS Administration Amoxicillin/Clavulanate Potassium 1 tablet 09/17/24 21:00 09/18/24 08:37 Amoxicillin/Clavulanate K 875-125 Mg Tab PO 1 tablet Q12HR MARKUS Administration Atorvastatin Calcium 80 mg 09/17/24 09:00 09/18/24 08:37 Atorvastatin 40 Mg Tablet BY MOUTH 80 mg DAILY MARKUS Administration Escitalopram Oxalate 10 mg 09/17/24 09:00 09/18/24 08:38 Escitalopram Oxalate 10 Mg Tablet BY MOUTH 10 mg DAILY MARKUS Administration Gabapentin 300 mg 09/16/24 20:55 09/17/24 18:32 Gabapentin 300 Mg Capsule PO 300 mg QPM MARKUS Administration Levothyroxine Sodium 75 mcg 09/17/24 06:30 09/18/24 05:47 Levothyroxine Sodium 75 Mcg Tablet PO 75 mcg DAILY@0630 MARKUS Administration Miscellaneous Information 1 each 09/17/24 00:01 Propranolol Cr 80 Mg Is Nonform; Can Pt Use From Home/ Or Switch To Regular Propranolol 40 XX 10/17/24 00:00 [facility] Non-Formulary Medication 0 mg 09/16/24 21:00 Propranolol .ROUTE 10/17/24 20:59 .COMPLEX MARKUS Ondansetron HCl 4 mg 09/16/24 11:32 Ondansetron Inj 4 Mg/2 Ml Vial IV PUSH Q4H PRN Nausea Valsartan 320 mg 09/17/24 09:00 09/17/24 09:27 Valsartan 160 Mg Tablet PO 320 mg DAILY MARKUS Administration Radiology Results: ITS Impressions Abdomen/Pelvis CT 09/16/24 10:00 IMPRESSION: 1. Possible mass in the sigmoid colon. Sigmoidoscopy is advised. Diverticulitis is less likely, Although not excluded. 2. Cholelithiasis. Labs Labs: Laboratory Results - last 24 hr 09/18/24 09/18/24 09/18/24 06:40 06:41 09:15 WBC 9.4 RBC 5.48 H Hgb 14.9 Hct 45.9 MCV 83.8 MCH 27.2 MCHC 32.5 RDW 14.6 H Plt Count 253 MPV 11.7 H Immature Gran % (Auto) 0.3 Neut % (Auto) 73.4 H Lymph % (Auto) 15.3 L [place] % (Auto) 7.0 Eos % (Auto) 3.0 Baso % (Auto) 1.0 Lymph # (Auto) 1.43 [place] # (Auto) 0.7 H Eos # (Auto) 0.3 Baso # (Auto) 0.1 Abs Immat Gran (auto) 0.03 Absolute Neuts (auto) 6.9 H Absolute Nucleated RBC 0.000 Nucleated RBC % 0.0 Sodium 138 Potassium 4.5 Chloride 103 Carbon Dioxide 29 Anion Gap 6 BUN 8 Creatinine 0.56 L Estim Creat Clear Calc 45 Estimated GFR > 60 Glucose 99 Calcium 8.7 Total Bilirubin 1.0 AST 34 ALT 17 Alkaline Phosphatase 120 C-Reactive Protein 3.5 H Total Protein 6.0 L Albumin 3.4 L Procalcitonin 0.0
== END 2024-09-18 13:30 | disposition home or self-care (01) | DRG 392 ==
LOC: ANHED 11:30 → ANH3MEDSUR 13:09
PROVIDERS: Internal Medicine Gastroenterology; Admitting Provider Internal Medicine; Emergency Provider Family Medicine; PCP Internal Medicine; Visit Provider Nurse Practitioner Acute Care
DX: K57.32 Diverticulitis of large intestine without perforation or abscess without bleeding (principal); I85.00 Esophageal varices without bleeding; K63.89 Other specified diseases of intestine; I10 Essential (primary) hypertension; I36.1 Nonrheumatic tricuspid (valve) insufficiency; E78.5 Hyperlipidemia, unspecified; E83.119 Hemochromatosis, unspecified; E03.9 Hypothyroidism, unspecified; G25.0 Essential tremor; R01.1 Cardiac murmur, unspecified; R09.89 Other specified symptoms and signs involving the circulatory and respiratory systems; R91.8 Other nonspecific abnormal finding of lung field; F32.A Depression, unspecified; Z79.899 Other long term (current) drug therapy; Z87.442 Personal history of urinary calculi
CPT/HCPCS: 36415; 74177; 80053; 81001; 83690; 84145; 85025; 86140; 96374; 96375; 99285; A9270; J1836; J2543; J7030; P9047; Q9967

== ENCOUNTER 2024-09-27 10:21 | Outpatient (CLI) | payer MEDICARE, SELFPAY ==
[2024-09-27 11:05] LABS: Basophils Absolute Auto 0.1 K/mm3 (0.0-0.1); Basophils Percent Auto 1.3 % (0.2-1.2); Eosinophils Absolute Auto 0.3 K/mm3 (0-0.3); Eosinophils Percent Auto 2.9 % (0-4.4); Hematocrit 48.8 % (37.0-47.0); Hemoglobin 15.3 g/dL (12.0-15.0); Immature Granulocyte Absolute 0.04 K/mm3 (0.00-0.031); Immature Granulocyte Percent A 0.4 % (0-0.5); Lymphocytes Absolute Auto 2.21 K/mm3 (0.9-3.2); Lymphocytes Percent Auto 23.6 % (18.3-44.2); Mean Corpuscular HGB Conc 31.4 g/dl (32-36); Mean Platelet Volume 11.4 fl (7.4-10.4); Monocytes Absolute Auto 0.7 K/mm3 (0.1-0.6); Monocytes Percent Auto 7.9 % (2.6-8.5); Neutrophils Percent Auto 63.9 % (45.5-73.1); Platelet Count Result 316 k/mm3 (150-375); Red Blood Count 5.88 M/mm3 (4.2-5.4); Red Cell Distribution Width 14.8 % (11.5-14.5); White Blood Count 9.4 K/mm3 (4.5-10.0)
[2024-09-27 11:19] LABS: Alanine Aminotransferase 19 U/L (6-35); Albumin Level 4.2 g/dL (3.5-5.1); Alkaline Phosphatase 138 U/L (38-126); Anion Gap 10 mmol/L (4-12); Aspartate Amino Transferase 34 U/L (14-36); Blood Urea Nitrogen 12 mg/dL (7-17); Calcium 9.3 mg/dL (8.4-10.2); Carbon Dioxide 27 mmol/L (22-30); Chloride 100 mmol/L (98-107); Cholesterol 143 mg/dL (0-200); Estimated Glomerular Filt Rate > 60; Glucose 92 mg/dL (65-110); HDL Direct 46 mg/dL; Potassium 4.2 mmol/L (3.4-5.0); Sodium 137 mmol/L (137-145); Triglycerides 101 mg/dL (<150)
[2024-09-27 11:25] LABS: Hemoglobin A1C 5.9 % (<5.7)
--- OUTSIDE RECORDS SUMMARY | 2024-09-27 11:27 | XMS_ITS | Referral Summary ---
Author Organization [facility] Address [address] [place] [address] Care Team Providers Care Referral And Information Aide Name Role Phone Low Braxton MD Primary Care Provider [phone] Allergies Active Allergy Reactions Criticality Noted Date [...] 11/09/2020 Assessment & Plan (05/06/2021 8:53 AM OPTOMETRIC TECHNICIAN): Patient continues on primidone 50 mg HS [...] on file Legal Sex Female 3:06 AM OPTOMETRIC TECHNICIAN Gender Identity Female 11/07/2020 11:55 AM CDT Sexual Orientation Straight 11/07/2020 11 :55 AM CDT Last Filed Vital Signs Vital Sign Reading Time Taken Comments Blood Pressure 106/72 05/06/2021 8:15 AM OPTOMETRIC TECHNICIAN Pulse 66 05/06/2021 8:15 AM OPTOMETRIC TECHNICIAN Temperature 36.7 C (98 F) 05/06/2021 8:15 AM OPTOMETRIC TECHNICIAN Respiratory Rate - - Oxygen Saturation - - Inhaled Oxygen Concentration - - Weight 57.2 kg (126 lb 3.2 oz) 05/06/2021 8:15 A M OPTOMETRIC TECHNICIAN Height 153.7 cm (5' 0.5 ) 05/06/2021 8:15 AM OPTOMETRIC TECHNICIAN Body Mass Index 24.24 05/06/2021 8:15 AM OPTOMETRIC TECHNICIAN Plan of Treatment Not on file Insurance A[employer] SENIOR SUPPLEMENT MEDICARE MEDICARE AETNA MCR ADV REF MEDICARE AETNA SENIOR SUPPLEMENT Care Teams Referral And Information Aide Relationship Specialty Start Date End Date Low Braxton MD [address] [place] [id number] PCP - General Internal Medicine 11/09/20
--- OUTSIDE RECORDS SUMMARY | 2024-09-27 11:28 | XMS_ITS | Encounter Summary ---
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
--- OUTSIDE RECORDS SUMMARY | 2024-09-27 11:28 | XMS_ITS | Clinical Summary ---
Author Organization [facility] Address [address] [place] [address] Care Team Providers Care Candy Maker Name Role Phone Low Braxton MD Primary Care Provider [phone] Allergies Active Allergy Reactions Criticality Noted Date [...] 11/09/2020 Assessment & Plan (05/06/2021 8:53 AM SALES ASSOCIATE CASHIER): Patient continues on primidone 50 mg HS [...] on file Legal Sex Female 3:06 AM SALES ASSOCIATE CASHIER Gender Identity Female 11/07/2020 11:55 AM CDT Sexual Orientation Straight 11/07/2020 11 :55 AM CDT Obstetrics History Last Filed Vital Signs Vital Sign Reading Time Taken Comments Blood Pressure 106/72 05/06/2021 8:15 AM SALES ASSOCIATE CASHIER Pulse 66 05/06/2021 8:15 AM SALES ASSOCIATE CASHIER Temperature 36.7 C (98 F) 05/06/2021 8:15 AM SALES ASSOCIATE CASHIER Respiratory Rate - - Oxygen Saturation - - Inhaled Oxygen Concentration - - Weight 57.2 kg (126 lb 3.2 oz) 05/06/2021 8:15 A M SALES ASSOCIATE CASHIER Height 153.7 cm (5' 0.5 ) 05/06/2021 8:15 AM SALES ASSOCIATE CASHIER Body Mass Index 24.24 05/06/2021 8:15 AM SALES ASSOCIATE CASHIER Plan of Treatment Not on file Insurance A[employer]NA SENIOR SUPPLEMENT MEDICARE MEDICARE AETNA [facility] MEDICARE AETNA SENIOR SUPPLEMENT Care Teams Candy Maker Relationship Specialty Start Date End Date Low Braxton MD [facility] [place], [place] [id number] PCP - General Internal Medicine 11/09/20
--- OUTSIDE RECORDS SUMMARY | 2024-09-27 11:28 | XMS_ITS | Encounter Summary ---
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
--- OUTSIDE RECORDS SUMMARY | 2024-09-27 11:28 | XMS_ITS | Clinical Summary ---
Author Organization [facility] Address [address] [place] [address] Care Team Providers Care Curer Acid Drum Name Role Phone Luis Chen MD Primary Care Provider [phone] Allergies Active Allergy Reactions Criticality Noted Date Comments Sulfa Antibiotics Unknown 01/22/2012 Medications valsartan-hydro chlorothiazide 160-25 MG tablet Take 1 tablet by mouth every evening. 1 9 Active levothyroxine 75 MCG tablet Take 1 tablet (75 mcg total) by mouth daily. 0 9 Active propranolol LA 80 MG 24 hr capsule Take 1 capsule (80 mg total) by mouth daily. 0 9 Active atorvastatin 10 MG tablet Take 0.5 tablets (5 mg total) by mouth 3 (three) times a week. At bedtime. Active sertraline 25 MG tablet Take 1 tablet (25 mg total) by mouth every morning. 9 Active SYMBICORT 160-4.5 MCG/ACT inhaler Inhale 2 puffs into the lungs every 12 (twelve) hours. 0 Active [employer] STOOL SOFTENER 100 MG capsule Take 1 capsule (100 mg total) by mouth 2 (two) times daily. 1 Active pantoprazole EC 40 MG tablet Take 1 tablet (40 mg total) by mouth nightly at bedtime. at bedtime. 1 Active carbidopa-levod opa CR 25-100 MG tablet TAKE 1 TABLET BY MOUTH TWICE A DAY 30 DAYS 1 Active amLODIPine 5 MG tablet Take 1 tablet (5 mg total) by mouth daily. 1 Active propranolol XL 80 MG CAPSULE SR 24 HR 24 hr capsule Take 80 mg by mouth daily. 1 Active valsartan 160 MG tablet Take 1 tablet (160 mg total) by mouth daily. 1 Active aspirin 81 MG chewable tablet 1 Active albuterol sulfate HFA (VENTOLIN HFA) 108 (90 Base) MCG/ACT inhalerIndicati ons:Centrilobul ar emphysema (CMS/HCC HHS/HCC) Inhale 2 puffs into the lungs every 4 (four) hours as needed for Wheezing or Shortness of breath. 18 g 5 2 Active atorvastatin (LIPITOR) 40 MG tablet Take 1 tablet (40 mg total) by mouth daily. 2 Active valsartan (DIOVAN) 320 MG tablet 2 Active hydrOXYzine (ATARAX) 25 MG tablet Take 1 tablet (25 mg total) by mouth nightly at bedtime. 2 Active DULoxetine (CYMBALTA) 30 MG capsule Take 1 capsule (30 mg total) by mouth every morning. 2 Active levothyroxine (SYNTHROID) 50 MCG tablet 2 Active gabapentin (NEURONTIN) 300 MG capsule Take 1 capsule (300 mg total) by mouth 3 (three) times daily. 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 regimen she developed daytime dyspepsia. On the reduced dose she is having good tolerability and effective suppression of most tremor. I have renewed her primidone 50 mg HS. She will follow-up in neurology clinic in 1 year or sooner on an as-needed basis. Abnormal finding on lung imaging 07/10/2020 Centrilobular emphysema (CMS/HCC HHS/HCC) 2020 Multiple lung nodules 07/10/2020 Cigarette nicotine dependence in remission 07/10 Diverticulosis 04/27/2019 Adenomatous polyp of ascending colon 04/27/2019 Internal hemorrhoids 04/27/2019 History of diverticulitis of colon 03/02/2019 Essential hypertension 02/20/2019 Hyperlipidemia 02/20/2019 Hypothyroidism 02/20/2019 Diverticulitis large intestine 02/19/2019 Immunizations Name Administration Dates Next Due Fluad influenza vaccine, Hussein drivalent (aIIV4), Inactivated, adjuvanted, preservative free, 0.5 mL,IM use 04/12/2018 MODERNA COVID-19 (12+) MRNA, LNP-S, PF, 100 MCG/ 0.5 ML DOSE 07/26/2020 Shingrix 02/24/2020,04/12/2018 Yellow Fever (YF- Vax) 11/17/2016 Family History Medical History Relation Comments Cancer Brother Heart Disease Brother Heart Disease Father Heart Disease Mother Relation Status Comments Brother Father Mother Social History Tobacco Use Types Packs/Day Years Used Date Smoking Tobacco: Former Cigarettes 0.5 30 1 956 - 1986 Smokeless Tobacco: Never Tobacco Cessation:Counseling Given: Not Answered Comments:quit 20+ years ago, was smoking a pack a day Alcohol Use Standard Drinks/Week Comments Yes 0 (1 standard drink = 0.6 oz pure alcohol) occasionally when out to dinner AUDIT-C Answer Date Recorded Frequency of Alcohol Consumption Never 02/19/2019 Average Number of Drinks Not on file 019 Frequency of Binge Drinking Not on file 01/28 PHQ-2 Answer Date Recorded Patient Health Questionnaire-2 Score 0 12/23/2023 Comments No Sex and Gender Information Value Date Recorded Sex Assigned at Not on file Legal Sex Female 7:19 PM CDT Gender Identity Not on file Sexual Orientation Not on file Last Filed Vital Signs Vital Sign Reading Time Taken Comments Blood Pressure 133/82 12/23/2023 1:48 PM CDT Pulse 65 12/23/2023 1:48 PM CDT Temperature 36.4 C (97.5 F) 12/23/2023 1:48 PM CDT Respiratory Rate 18 09/23/2023 3:06 PM CDT Oxygen Saturation 96% 12/23/2023 1:48 PM CDT Inhaled Oxygen Concentration - - Weight 57.6 kg (127 lb) 12/23/2023 1:48 PM CDT Height 166.4 cm (5' 5.5 ) 12/23/2023 1:48 PM CDT Body Mass Index 20.81 12/23/2023 1:48 PM CDT Plan of Treatment Health Maintenance Due Date Last Done Comments Pneumococcal Vaccine: 65+ Years (1 of 2 - PCV) 1946 DTaP, Tdap and Td Vaccines ( 1 - Tdap) 1959 Annual Medicare Wellness Visit 01/22/2004 RSV Immunization or 60+ Years (1 - 1-dose 75+ series) 2014 COVID-19 Vaccine (2 - 2023-2 5 season) 2024 07/26/2020 Influenza Adult (#1) 2024 04/12/2018 PHQ-2 (Physician [place]) 06/29/2024 12/23/2023 Zoster Vaccines Completed 02/24/2020, 04/12/2018 Meningococcal B Vaccine Aged Out No l onger eligible based on patient's age to complete this topic Meningococcal Vaccine Aged Out No amber abhinav eligible based on patient's age to complete this topic RSV Immunizations Under 20 Months Aged Out No longer eligible b ased on patient's age to complete this topic Insurance * Guarantor: Sherrie Vasquez Account Type Relation to Patient Date of Phone Billing Address Personal/Family Self 1940 [id number] [facility] [address] [place] [address] MEDICARE AENA Advance Directives * Full Code (Latest Code Status on File) Date Activated Date Inactivated Comments 02/19/2019 8:55 PM 02/23/2019 1:38 PM Care Teams Curer Acid Drum Relationship Specialty Start Date End Date Luis Chen MD [address] - [facility] [address] [place] [address] PCP - General INTERNAL MEDICINE 05/12/22
--- OUTSIDE RECORDS SUMMARY | 2024-09-27 11:28 | XMS_ITS | Encounter Summary ---
Author Organization [facility] Address [facility] [place] [address] Care Team Providers Care Screwhead Polisher Name Role Phone Low Braxton MD Primary Care Provider [phone] Luis Chen MD Primary Care Provider [phone] Encounter Details Date Type Department Care Team (Late st Contact Info) Description 02/24/2019 Hospital Follow-up Call [facility] Med/Surg [address] [place] [address] She Gomez RN Social History Tobacco Use Types Packs/Day Years Used Date Smoking Tobacco: Former Smokeless Tobacco: Never Comments:quit 20+ years ago, was smoking a pack a day Alcohol Use Standard Drinks/Week Comments Yes 0 (1 standard drink = 0.6 oz pure alcohol) occasionally when out to dinner AUDIT-C Answer Date Recorded Frequency of Alcohol Consumption Never 02/19/2019 Average Number of Drinks Not on file 019 Frequency of Binge Drinking Not on file 01/28 Comments No Sex and Gender Information Value Date Recorded Sex Assigned at Not on file Legal Sex Female 7:19 PM CDT Gender Identity Not on file Sexual Orientation Not on file documented as of this encounter Functional Status * RETIRED Are you deaf or do you have serious difficulty hearing Answer Date of Assessment Author Status Yes 02/19/2019 8:12 PM CDT Activ e * RETIRED Are you blind or do you have serious difficulty seeing, even when wearing glasses? Answer Date of Assessment Author Status No 02/19/2019 8:12 PM CDT Activ e * Do you have serious difficulty walking or climbing stairs? Answer Date of Assessment Author Status No 02/19/2019 8:12 PM CDT Candace Villegas RN Active * Do you have difficulty dressing or bathing? Answer Date of Assessment Author Status No 02/19/2019 8:12 PM CDT Candace Villegas RN Active * Because of a physical, mental, or emotional condition, do you have difficulty doing errands alone such as visiting a doctor's office or shopping? Answer Date of Assessment Author Status No 02/19/2019 8:12 PM CDT Candace Villegas RN Active documented as of this encounter Mental Status * Because of a physical, mental, or emotional condition, do you have serious difficulty concentrating, remembering, or making decisions? Answer Entry Date Author Status No 02/19/2019 8:12 PM CDT Candace Villegas RN Active documented in this encounter Plan of Treatment Not on file documented as of this encounter Visit Diagnoses Not on filedocumented in this encounter Additional Health Concerns Infection Onset Date Last Indicated Resolved Time COVID-19 Rule Out 09/15/2020 09/15/2020 09/16/2020 12:20 PM CDT documented as of this encounter Care Teams Screwhead Polisher Relationship Specialty Start Date End Date Low Braxton MD [address] [place] [address] PCP - General INTERNAL MEDICINE 12/08/18 05/11/22 Luis Chen MD [address] - [facility] [address] [place] [id number] PCP - General INTERNAL MEDICINE 05/12/22 documented as of this encounter
--- OUTSIDE RECORDS SUMMARY | 2024-09-27 11:28 | XMS_ITS | Clinical Summary ---
Author Organization [facility] Business Office Address [address] [place] [address] Care Team Providers Care Dairy Associate Name Role Phone Luis Chen MD Primary [...] on file Legal Sex Female 5:17 AM WEB ANALYTICS SPECIALIST Gender Identity Not on file Sexual Orientation Not on file Last Filed Vital Signs Vital Sign Reading Time Taken Comments Blood Pressure 99/62 07/23/2022 10:14 AM WEB ANALYTICS SPECIALIST Pulse 71 07/23/2022 10:14 AM WEB ANALYTICS SPECIALIST Temperature 36.5 C (97.7 F) 07/23/2022 10:14 AM WEB ANALYTICS SPECIALIST Respiratory Rate 16 07/23/2022 10:14 AM WEB ANALYTICS SPECIALIST Oxygen Saturation 90% 07/23/2022 10:14 AM WEB ANALYTICS SPECIALIST hands cold Inhaled Oxygen Concentration - [...] A AND B [employer] [address] MEDICARE PART A AND B Care Teams Dairy Associate Relationship Specialty Start Date End Date Luis Chen MD [address] [place] [address] PCP - General Internal Medicine 07/23/22
[2024-09-27 11:30] LABS: LDL Cholesterol Direct 68 mg/dL
[2024-09-27 11:50] LABS: Thyroid Stimulating Hormone 0.639 uIU/mL (0.465-4.680)
[2024-09-27 12:00] LABS: Free T4 Free Thyroxine 2.29 ng/dL (0.78-2.19)
== END 2024-09-27 10:22 | disposition home or self-care (01) ==
LOC: ANHLAB 10:23
PROVIDERS: PCP Internal Medicine; Visit Provider Internal Medicine
DX: R73.03 Prediabetes (principal); I10 Essential (primary) hypertension; E03.9 Hypothyroidism, unspecified; E78.5 Hyperlipidemia, unspecified
CPT/HCPCS: 36415; 80053; 80061; 83036; 84439; 84443; 85025

== ENCOUNTER 2024-11-09 14:35 | Outpatient (CLI) | payer MEDICARE, SELFPAY ==
--- NOTE | ~2024-11-09 | CT_ITS ---
Clinical Indication: Hypertension CT Scan of the Chest with Contrast: Technique: Contiguous sections were acquired throughout the chest after intravenous administration of 100 cc of Omnipaque 350. Dose reduction technique was used on this scan by utilizing automated expos ure control and iterative reconstruction technique. The dose-length product (DLP) was 181.85 mGy-cm. Findings: There is no evidence of any significant mediastinal, hilar or axillary lymphadenopathy. There is no f illing defect in the pulmonary arterial tree to suggest pulmonary embolus. There is no evidence of ao rtic dissection or aneurysm. There are extensive atherosclerotic calcifications of the aorta. There is no evidence of pleural or pericardial effusion. There is a somewhat amorphous groundglass nodular lesion in the right upper lobe measuring 3.3 x 2.0 cm in transverse dimensions (axial image 48). Probable mild emphysema. Images through the upper abdomen reveal probable small gallstones. Impression: 3.3 x 2.0 cm groundglass nodular lesion in the right upper lobe, indeterminate. This could reflect fo veronica pneumonia versus possibly neoplastic lesion such as bronchial alveolar cell carcinoma. Consider f ollow-up exam versus tissue sampling. Mild emphysema. Extensive atherosclerotic disease of the aorta. Cholelithiasis. Reviewed, dictated and finalized at location M. Impression: 3.3 x 2.0 cm groundglass nodular lesion in the right upper lobe, indeterminate. This could reflect focal pneumonia versus possibly neoplastic lesion such as b ronchial alveolar cell carcinoma. Consider follow-up exam versus tissue samplin g. Mild emphysema. Extensive atherosclerotic disease of the aorta. Cholelithiasis.
--- OUTSIDE RECORDS SUMMARY | 2024-11-09 14:39 | XMS_ITS | Referral Summary ---
Author Organization [facility] Address [address] [place] [address] Care Team Providers Care Superintendent Service Name Role Phone Luis Chen MD Primary Care Provider [phone] Encounters Date Type Department Care Team Description 11/01/2024 10:30 AM CDT Office Visit [facility] Surgery [address] [place] [address] Sal Winchester MD Epigastric pain (Primary Dx) from Last 3 Months Allergies Active Allergy Reactions Criticality Noted Date Comments Sulfa (Sulfonamide Antibiotics) Hives Medium 12/28 Medications amLODIPine (NORVASC) 5 mg tablet Take 1 tablet (5 mg total) by mouth daily 11/02/2020 Active atorvastatin (LIPITOR) 10 mg tablet TAKE 1/2 TABLET BY MOUTH 3 TIMES PER WEEK 09/12/2020 Active propranolol LA (INDERAL LA) 80 mg 24 hr capsule Take 1 capsule (80 mg total) by mouth daily 09/12/2020 Active levothyroxine (SYNTHROID) 75 mcg tablet Take 1 tablet (75 mcg total) by mouth daily 11/18/2018 Active valsartan (DIOVAN) 160 mg tablet Take 1 tablet (160 mg total) by mouth daily 10/11/2020 Active aspirin 81 mg chewable tablet 04/10/2021 Act alex Stool Softener 100 mg capsule 02/26/2021 Acti ve primidone (MYSOLINE) 50 mg tabletIndicatio ns:Essential tremor Take 1 tablet (50 mg total) by mouth nightly 90 tablet 3 05/06/2021 Active gabapentin (NEURONTIN) 300 mg capsule Take 1 capsule (300 mg total) by mouth 3 (three) times a day 01/06/[address] (PROTONIX) 40 mg EC tablet Take 1 tablet (40 mg total) by mouth daily 07/09/2020 Active escitalopram (LEXAPRO) 10 mg tablet 10/27/2024 Active Active Problems Problem Noted Date Diagnosed Date Epigastric pain 11/01/2024 Essential tremor 11/09/2020 Assessment & Plan (05/06/2021 8:53 AM HEALTH MANAGER): Patient continues on primidone 50 mg HS [...] on file Legal Sex Female 3:06 AM HEALTH MANAGER Gender Identity Female 11/07/2020 11:55 AM CDT Sexual Orientation Straight 11/07/2020 11 :55 AM CDT Last Filed Vital Signs Vital Sign Reading Time Taken Comments Blood Pressure 146/86 11/01/2024 10:24 AM CDT Pulse 112 11/01/2024 10:24 AM CDT Temperature 36.5 C (97.7 F) 11/01/2024 10:24 AM CDT Respiratory Rate - - Oxygen Saturation 95% 11/01/2024 10:24 AM CDT Inhaled Oxygen Concentration - - Weight 56.7 kg (125 lb) 11/01/2024 10:24 AM CDT Height 152.4 cm (5') 11/01/2024 10:24 AM CDT Body Mass Index 24.41 11/01/2024 10:24 AM CDT Plan of Treatment Not on file Insurance AETNA SENIOR SUPPLEMENT MEDICARE MEDICARE AETNA SENIOR SUPPLEMENT MEDICARE AETNA SENIOR SUPPLEMENT Care Teams Superintendent Service Relationship Specialty Start Date End Date Luis Chen MD [address] [place] [address] PCP - General Internal Medicine 10/28/24
--- OUTSIDE RECORDS SUMMARY | 2024-11-09 14:40 | XMS_ITS | Encounter Summary ---
Author Organization [facility] Address [address] [facility] Attn: Epic Prelude ADT [place] [address] Care Team Providers Care Varnishing Machine Operator Name Role Phone Lusi Chen MD Primary Care Provider + Encounter Details Date Type Department Care Team (Late st Contact Info) Description 01/23/1995 [place] [address] [address] Social History Tobacco Use Types Packs/Day Years Used Date Smoking Tobacco: Never Assessed Comments Unknown Sex and Gender Information Value Date Recorded Sex Assigned at Not on file Legal Sex Female 5:17 AM CUPOLA OPERATOR INSULATION Gender Identity Not on file Sexual Orientation Not on file documented as of this encounter Plan of Treatment Not on file documented as of this encounter Visit Diagnoses Not on filedocumented in this encounter Care Teams Varnishing Machine Operator Relationship Specialty Start Date End Date Luis Chen MD [address] [place] [address] PCP - General Internal Medicine 07/23/22 documented as of this encounter
--- OUTSIDE RECORDS SUMMARY | 2024-11-09 14:40 | XMS_ITS | Clinical Summary ---
Author Organization [facility] Address [address] [place] [address] Care Team Providers Care Warehouse And Receiving Supervisor Name Role Phone Luis Chen MD Primary Care Provider [phone] Allergies Active Allergy Reactions Criticality Noted Date [...] Hypothyroidism 02/20/2019 Diverticulitis large intestine 02/19/2019 Immunizations Immunization Administration Dates Next Due Fluad influenza vaccine, [...] Health Maintenance Due Date Last Done Comments DTaP, Tdap and Td Vaccines ( 1 - Tdap) 1959 Pneumococcal Vaccine: 50+ Years (1 of 2 - PCV) 1959 Annual Medicare Wellness Visit 01/22/2004 RSV Immunization or 60+ Years (1 - 1-dose 75+ series) 2014 COVID-19 Vaccine (2 - 2023-2 5 season) 2024 07/26/2020 PHQ-2 (Physician [place]) 06/29/2024 12/23/2023 Zoster Vaccines Completed 02/24/2020, 04/12/2018 Meningococcal B Vaccine Aged Out No l onger eligible based on patient's age to complete this topic Meningococcal Vaccine Aged Out No amber abhinav eligible based on patient's age to complete this topic RSV Immunizations Under 20 Months Aged Out No longer eligible b ased on patient's age to complete this topic Insurance MEDICARE AETNA Advance Directives * Full Code (Latest Code Status on File) Date Activated Date Inactivated Comments 02/19/2019 8:55 PM 02/23/2019 1:38 PM Care Teams Warehouse And Receiving Supervisor Relationship Specialty Start Date End Date Luis Chen MD [address] - [facility] [address] [place] [address] PCP - General INTERNAL MEDICINE 05/12/22
--- OUTSIDE RECORDS SUMMARY | 2024-11-09 14:40 | XMS_ITS | Clinical Summary ---
Author Organization [facility] Address [address] [place] [address] Care Team Providers Care Chief Quality Officer Name Role Phone Luis Chen MD Primary Care Provider [phone] Allergies Active Allergy Reactions Criticality Noted Date [...] 11/09/2020 Assessment & Plan (05/06/2021 8:53 AM INDUSTRIAL ENGINEERING INTERN): Patient continues on primidone 50 mg HS [...] blood pressure) Hypothyroidism 06/24/2013 Overview (10/02/2016): Hypothyroidism Encounters Date Type Department Care Team Description 11/01/2024 10:30 AM CDT Office Visit [facility] Surgery [address] [place] [address] Sal Winchester MD Epigastric pain (Primary Dx) from Last 3 Months Surgical History Surgery Date Site/Laterality Comments HYSTERECTOMY 06/29/1969 - 06/28/1970 Hysterectomy APPENDECTOMY 06/29/1969 - 06/28/1970 Appendectomy OTHER SURGICAL HISTORY 06/29/1979 - 06/28/1980 sinus surgury BREAST BIOPSY 07/28/2013 Right Medical History Medical History Date Comments Hypertension High cholesterol Parkinson disease (HCC) Family History Medical History Relation Name Comments [...] on file Legal Sex Female 3:06 AM INDUSTRIAL ENGINEERING INTERN Gender Identity Female 11/07/2020 11:55 AM CDT [...] 11/01/2024 10:24 AM CDT Plan of Treatment Health Maintenance Due Date Last Done Comments Depression Screening 1940 Fall Risk Assessment 1940 Osteoporosis Screening-Bone Density Scan 1940 DTaP/Tdap/Td Vaccine (1 - Tdap) 1950 Hepatitis B Screening 1957 Pneumococcal vaccine 65+ (1 of 2 - PCV) 1958 Well Visit 65+ 01/22/2004 Covid-19 Vaccine (3 - season) 02/28/202407/2020, 07/26/2020 Influenza Vaccine (Season Ended) 2025 04/15/2019, 04/12/2018, 05/25/2017 Zoster Vaccine Completed 02/24/2020, 04/12/2018 Insurance AETNA [facility] MEDICARE MEDICARE AETNA SENIOR SUPPLEMENT MEDICARE TNA SENIOR SUPPLEMENT Care Teams Chief Quality Officer Relationship Specialty Start Date End Date Luis Chen MD [address] [place] [address] PCP - General Internal Medicine 10/28/24
--- OUTSIDE RECORDS SUMMARY | 2024-11-09 14:40 | XMS_ITS | Encounter Summary ---
Author Organization [facility] Address [address] [facility] Attn: Epic Prelude ADT [place] [address] Care Team Providers Care Home Energy Inspector Name Role Phone Luis Chen MD Primary Care Provider + Encounter Details Date Type Department Care Team (Late st Contact Info) Description 09/28/1999 Outpatient Historical Social History Tobacco Use Types Packs/Day Years Used Date Smoking Tobacco: Never Assessed Comments Unknown Sex and Gender Information Value Date Recorded Sex Assigned at Not on file Legal Sex Female 5:17 AM RADON INSPECTOR Gender Identity Not on file Sexual Orientation Not on file documented as of this encounter Plan of Treatment Not on file documented as of this encounter Visit Diagnoses Not on filedocumented in this encounter Care Teams Home Energy Inspector Relationship Specialty Start Date End Date Luis Chen MD [address] [place] [address] PCP - General Internal Medicine 07/23/22 documented as of this encounter
--- OUTSIDE RECORDS SUMMARY | 2024-11-09 14:40 | XMS_ITS | Clinical Summary ---
Author Organization [facility] [employer] Business Office Address [address] [place] [address] Care Team Providers Care Costume Draper Name Role Phone Luis Chen MD Primary [...] on file Legal Sex Female 5:17 AM TARGET AIRCRAFT CONTROLLER Gender Identity Not on file Sexual Orientation Not on file Last Filed Vital Signs Vital Sign Reading Time Taken Comments Blood Pressure 99/62 07/23/2022 10:14 AM TARGET AIRCRAFT CONTROLLER Pulse 71 07/23/2022 10:14 AM TARGET AIRCRAFT CONTROLLER Temperature 36.5 C (97.7 F) 07/23/2022 10:14 AM TARGET AIRCRAFT CONTROLLER Respiratory Rate 16 07/23/2022 10:14 AM TARGET AIRCRAFT CONTROLLER Oxygen Saturation 90% 07/23/2022 10:14 AM TARGET AIRCRAFT CONTROLLER hands cold Inhaled Oxygen Concentration - - [...] MEDICARE PART A AND B Care Teams Costume Draper Relationship Specialty Start Date End Date Luis Chen MD [address] [place] [address] PCP - General Internal Medicine 07/23/22
--- OUTSIDE RECORDS SUMMARY | 2024-11-09 14:40 | XMS_ITS | Encounter Summary ---
Author Organization [facility] Address [facility] [place] [address] Care Team Providers Care Microcomputer Support Specialist Name Role Phone Low Braxton MD Primary Care Provider [phone] Luis Chen MD Primary Care Provider [phone] Encounter Details Date Type Department Care Team (Late st Contact Info) Description 02/24/2019 Hospital Follow-up Call [facility] Med/Surg [address] [place] [address] She Gomez RN Social History [...] documented as of this encounter Care Teams Microcomputer Support Specialist Relationship Specialty Start Date End Date Low Braxton MD [address] [place] [address] PCP - General INTERNAL MEDICINE 12/08/18 05/11/22 Luis Chen MD [address] - [facility] [address] [place] [phone] PCP - General INTERNAL MEDICINE 05/12/22 documented as of this encounter
[2024-11-09 15:33] LABS: Estimated Glomerular Filt Rate 53
== END 2024-11-09 14:36 | disposition home or self-care (01) ==
PROVIDERS: PCP Internal Medicine; Visit Provider Internal Medicine
DX: I65.22 Occlusion and stenosis of left carotid artery (principal); R06.02 Shortness of breath; I10 Essential (primary) hypertension; R55 Syncope and collapse; K80.20 Calculus of gallbladder without cholecystitis without obstruction; J43.9 Emphysema, unspecified; I70.0 Atherosclerosis of aorta
CPT/HCPCS: 71275; Q9967

== ENCOUNTER 2024-11-24 11:00 | Outpatient (CLI) | payer MEDICARE, SELFPAY ==
--- NOTE | ~2024-11-24 | XR_ITS ---
CHEST RADIOGRAPH, PA AND LATERAL CLINICAL HISTORY: J18.9 - Pneumonia, unspecified organism . COMPARISON: 03/04/2024. Reference is also made to a CT examination of the chest dated 11/09/2024 TECHNIQUE: PA and lateral views of the chest. FINDINGS The cardiomediastinal silhouette is unremarkable. Redemonstration of a wedge-shaped focus of increased density within the right upper lobe, increased i n size from 03/04/2024 for which follow-up as per Fleischner guidelines is recommended. The remainder o f the lungs are clear. IMPRESSION: Redemonstration of a wedge-shaped focus of increased density within the right upper lobe, increased i n size from prior for which follow-up as per Fleischner guidelines is recommended. PET/CT, 3 month fo llow-up, or tissue sampling Reviewed, dictated and finalized at location A. IMPRESSION: Redemonstration of a wedge-shaped focus of increased density within the right u pper lobe, increased in size from prior for which follow-up as per Jhoan hall is recommended. PET/CT, 3 month follow-up, or tissue sampling
--- OUTSIDE RECORDS SUMMARY | 2024-11-24 11:06 | XMS_ITS | Clinical Summary ---
Author Organization [facility] [employer] Business Office Address [address] [place] [address] Care Team Providers Care Machine Veneer Repairer Name Role Phone Luis Chen MD [...] on file Legal Sex Female 5:17 AM DEFECT REPAIRER GLASSWARE Gender Identity Not on file Sexual Orientation Not on file Last Filed Vital Signs Vital Sign Reading Time Taken Comments Blood Pressure 99/62 07/23/2022 10:14 AM DEFECT REPAIRER GLASSWARE Pulse 71 07/23/2022 10:14 AM DEFECT REPAIRER GLASSWARE Temperature 36.5 C (97.7 F) 07/23/2022 10:14 AM DEFECT REPAIRER GLASSWARE Respiratory Rate 16 07/23/2022 10:14 AM DEFECT REPAIRER GLASSWARE Oxygen Saturation 90% 07/23/2022 10:14 AM DEFECT REPAIRER GLASSWARE hands cold Inhaled Oxygen Concentration - - [...] MEDICARE PART A AND B Care Teams Machine Veneer Repairer Relationship Specialty Start Date End Date Luis Chen MD [address] [place] [address] PCP - General Internal Medicine 07/23/22
--- OUTSIDE RECORDS SUMMARY | 2024-11-24 11:06 | XMS_ITS | Encounter Summary ---
Author Organization [facility] Address [address] [facility] Attn: Epic Prelude ADT [place] [address] Care Team Providers Care Boiler Control Technician Name Role Phone Luis Chen MD Primary Care Provider + Encounter Details Date Type Department Care Team (Late st Contact Info) Description 09/28/1999 Outpatient Historical Social History Tobacco Use Types Packs/Day Years Used Date Smoking Tobacco: Never Assessed Comments Unknown Sex and Gender Information Value Date Recorded Sex Assigned at Not on file Legal Sex Female 5:17 AM ROLLER BILLET MILL Gender Identity Not on file Sexual Orientation Not on file documented as of this encounter Plan of Treatment Not on file documented as of this encounter Visit Diagnoses Not on filedocumented in this encounter Care Teams Boiler Control Technician Relationship Specialty Start Date End Date Luis Chen MD [address] [place] [address] PCP - General Internal Medicine 07/23/22 documented as of this encounter
--- OUTSIDE RECORDS SUMMARY | 2024-11-24 11:06 | XMS_ITS | Clinical Summary ---
Author Organization [facility] Address [address] [place] [address] Care Team Providers Care Power Plant Superintendent Name Role Phone Luis Chen MD Primary Care Provider [phone] Allergies Active Allergy Reactions Criticality Noted Date [...] 11/09/2020 Assessment & Plan (05/06/2021 8:53 AM SECTION REPAIRER): Patient continues on primidone 50 mg HS [...] Encounters Date Type Department Care Team Description 11/15/2024 Telephone [facility] Surgery [address] [facility] [address] [place] [address] Betina Batres B.A. 11/01/2024 10:30 AM CDT Office Visit [facility] Surgery [address] [place] [address] Sal Winchester MD Epigastric pain (Primary Dx) [...] on file Legal Sex Female 3:06 AM SECTION REPAIRER Gender Identity Female 11/07/2020 11:55 AM CDT [...] Vaccine Completed 02/24/2020, 04/12/2018 Insurance [employer] SENIOR SUPPLEMENT MEDICARE MEDICARE AET SENIOR SUPPLEMENT MEDICARE AETNA SENIOR SUPPLEMENT Care Teams Power Plant Superintendent Relationship Specialty Start Date End Date Luis Chen MD [address] [place] [address] PCP - General Internal Medicine 10/28/24
--- OUTSIDE RECORDS SUMMARY | 2024-11-24 11:06 | XMS_ITS | Referral Summary ---
Author Organization [facility] Address [address] [place] [address] Care Team Providers Care Disability Program Navigator Name Role Phone Luis Chen MD Primary Care Provider [phone] Encounters Date Type Department Care Team Description 11/15/2024 Telephone [facility] Surgery [address] [facility] [address] [place] [address] Betina Batres, B.AConstantino 11/01/2024 10:30 AM CDT Office Visit [facility] Surgery [address] [place] [address] Sal Winchester MD Epigastric pain (Primary Dx) [...] 11/09/2020 Assessment & Plan (05/06/2021 8:53 AM PROPERTY DEVELOPER): Patient continues on primidone 50 mg HS [...] on file Legal Sex Female 3:06 AM PROPERTY DEVELOPER Gender Identity Female 11/07/2020 11:55 AM CDT [...] SUPPLEMENT MEDICARE AETNA SENIOR SUPPLEMENT Care Teams Disability Program Navigator Relationship Specialty Start Date End Date Luis Chen MD [address] [place] [address] PCP - General Internal Medicine 10/28/24
--- OUTSIDE RECORDS SUMMARY | 2024-11-24 11:06 | XMS_ITS | Encounter Summary ---
Author Organization [facility] Address [address] [facility] Attn: Epic Prelude ADT [place] [address] Care Team Providers Care Copy Lathe Tender Name Role Phone Luis Chen MD Primary Care Provider + Encounter Details Date Type Department Care Team (Late st Contact Info) Description 01/23/1995 [place] [address] [address] Social History Tobacco Use Types Packs/Day Years Used Date Smoking Tobacco: Never Assessed Comments Unknown Sex and Gender Information Value Date Recorded Sex Assigned at Not on file Legal Sex Female 5:17 AM PAINT SUPERVISOR Gender Identity Not on file Sexual Orientation Not on file documented as of this encounter Plan of Treatment Not on file documented as of this encounter Visit Diagnoses Not on filedocumented in this encounter Care Teams Copy Lathe Tender Relationship Specialty Start Date End Date Luis Chen MD [address] [place] [address] PCP - General Internal Medicine 07/23/22 documented as of this encounter
== END 2024-11-24 11:01 | disposition home or self-care (01) ==
PROVIDERS: PCP Internal Medicine; Visit Provider Internal Medicine
DX: J18.9 Pneumonia, unspecified organism (principal)
CPT/HCPCS: 71047

== ENCOUNTER 2024-12-13 10:40 | Outpatient (CLI) | payer MEDICARE, SELFPAY ==
--- NOTE | ~2024-12-13 | PE_ITS ---
EXAMINATION: PET skull to mid thigh DATE: 12/13/2024 13:24 INDICATION: Nonspecific abnormal finding of lung field TECHNIQUE: Blood glucose level was 108 mg/dL. 10.094 mCi of 18-fluorodeoxyglucose (18-FDG) was admini stered i.v. Low dose computed tomography (CT) images were acquired from the base of the brain to the proximal thighs for attenuation correction and anatomic localization. Positron emission tomography (P ET) images were acquired in the same distribution beginning 52 minutes after injection. Images includ ing fused PET/CT images were reconstructed in axial, coronal, and sagittal planes. Automated exposure control technique was employed. The dose-length product was 671.17mGy-cm. COMPARISON: CT dated 09/16/2024 FINDINGS: Head/neck: There is symmetric increased activity in the oral cavity, submandibular glands, laryngeal muscles and ocular muscles without CT correlate, likely physiologic. No pathologically enlarged cervical lymphad enopathy or suspicious foci of increased FDG uptake in the visualized head or neck. Chest: There is approximately 3.9 x 1.8 cm ill-defined region of groundglass opacity in the right upper lobe with increased FDG uptake with maximal SUV of 6.3. There are couple small calcified nodules in the r ight middle lobe which along with calcified right hilar and mediastinal lymph nodes and a small splen ic calcific lesions consistent with old granulomatous disease. No other suspicious pulmonary nodules or pleural effusion. Heart size is normal. Atherosclerotic coronary artery calcific lesion. Thoracic aorta is normal in caliber. No pathologically enlarged or FDG avid thoracic lymphadenopathy. Abdomen/pelvis/proximal thighs: Physiologic renal accumulation and excretion of FDG activity in the kidneys, bladder and along portio ns of ureters. Normal degree and heterogenous pattern of increased uptake throughout the liver withou t radiologic correlate or dominant FDG avid lesion. A few small calcified gallstones along the depend ent aspect of the otherwise normal-appearing gallbladder. The pancreas, spleen and bilateral adrenal glands are normal. Mild uptake scattered throughout the bowels without radiologic correlate, also lik linda physiologic. There is mild colonic diverticulosis with a sigmoid predominance and without adjacen t inflammatory change to suggest diverticulitis. No other abnormal foci of increased FDG uptake or pa thologically enlarged lymphadenopathy in the abdomen, pelvis or proximal thighs. There are numerous h eterotopic ossicles the subcutaneous tissues overlying the bilateral buttocks which could be related to fat necrosis or injection granulomata. Musculoskeletal: There is likely degenerative mild joint centered uptake at the left sternoclavicular joint and to les ser degree at the bilateral shoulders. There is likely physiologic mild muscular uptake in the hands and forearms. No suspicious lytic, blastic or abnormally FDG avid bone lesions. IMPRESSION: 1. 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 Depending on how this would affect antici pated clinical management would consider CT-guided biopsy for definitive determination. Reviewed, dictated and finalized at location A. IMPRESSION: 1. 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 Depending on how this would affect anticipated clinical management would con marketing manager health communications CT-guided biopsy for definitive determination.
[2024-12-13 11:14] LABS: Glucose Point of Care 108 mg/dl (65-105)
--- OUTSIDE RECORDS SUMMARY | 2024-12-13 11:53 | XMS_ITS | Encounter Summary ---
Author Organization [facility] Address [address] [facility] Attn: Epic Prelude ADT [place] [address] Care Team Providers Care Information Technology Internship Name Role Phone Luis Chen MD Primary Care Provider + Encounter Details Date Type Department Care Team (Late st Contact Info) Description 09/28/1999 Outpatient Historical Social History Tobacco Use Types Packs/Day Years Used Date Smoking Tobacco: Never Assessed Comments Unknown Sex and Gender Information Value Date Recorded Sex Assigned at Not on file Legal Sex Female 5:17 AM ROLL GRINDER Gender Identity Not on file Sexual Orientation Not on file documented as of this encounter Plan of Treatment Not on file documented as of this encounter Visit Diagnoses Not on filedocumented in this encounter Care Teams Information Technology Internship Relationship Specialty Start Date End Date Luis Chen MD [address] [place] [address] PCP - General Internal Medicine 07/23/22 documented as of this encounter
--- OUTSIDE RECORDS SUMMARY | 2024-12-13 11:53 | XMS_ITS | Clinical Summary ---
Author Organization [facility] [employer] Business Office Address [address] [place] [address] Care Team Providers Care Fuel Cell Binder Name Role Phone Luis Chen MD Primary [...] on file Legal Sex Female 5:17 AM CHILLER OPERATOR Gender Identity Not on file Sexual Orientation Not on file Last Filed Vital Signs Vital Sign Reading Time Taken Comments Blood Pressure 99/62 07/23/2022 10:14 AM CHILLER OPERATOR Pulse 71 07/23/2022 10:14 AM CHILLER OPERATOR Temperature 36.5 C (97.7 F) 07/23/2022 10:14 AM CHILLER OPERATOR Respiratory Rate 16 07/23/2022 10:14 AM CHILLER OPERATOR Oxygen Saturation 90% 07/23/2022 10:14 AM CHILLER OPERATOR hands cold Inhaled Oxygen Concentration - - [...] MEDICARE PART A AND B Care Teams Fuel Cell Binder Relationship Specialty Start Date End Date Luis Chen MD [address] [place] [id number] PCP - General Internal Medicine 07/23/22
--- OUTSIDE RECORDS SUMMARY | 2024-12-13 11:53 | XMS_ITS | Encounter Summary ---
Author Organization [facility] Address [address] [facility] Attn: Epic Prelude ADT [place] [address] Care Team Providers Care Extrusion Press Adjuster Name Role Phone Luis Chen MD Primary Care Provider + Encounter Details Date Type Department Care Team (Late st Contact Info) Description 01/23/1995 [place] [address] [address] Social History Tobacco Use Types Packs/Day Years Used Date Smoking Tobacco: Never Assessed Comments Unknown Sex and Gender Information Value Date Recorded Sex Assigned at Not on file Legal Sex Female 5:17 AM PANELBEATER Gender Identity Not on file Sexual Orientation Not on file documented as of this encounter Plan of Treatment Not on file documented as of this encounter Visit Diagnoses Not on filedocumented in this encounter Care Teams Extrusion Press Adjuster Relationship Specialty Start Date End Date Luis Chen MD [address] [place] [address] PCP - General Internal Medicine 07/23/22 documented as of this encounter
== END 2024-12-13 10:41 | disposition home or self-care (01) ==
PROVIDERS: PCP Internal Medicine; Visit Provider Internal Medicine
DX: R91.8 Other nonspecific abnormal finding of lung field (principal); R93.89 Abnormal findings on diagnostic imaging of other specified body structures
CPT/HCPCS: 78815; A9552

== ENCOUNTER 2024-12-28 08:57 | Outpatient (CLI) | payer MEDICARE, SELFPAY ==
--- OUTSIDE RECORDS SUMMARY | 2024-12-28 09:03 | XMS_ITS | Clinical Summary ---
Author Organization [facility] Address [address] [place] [address] Care Team Providers Care Blower Mechanic Name Role Phone Luis Chen MD Primary Care Provider [phone] Allergies Active Allergy Reactions Criticality Noted Date [...] 1:48 PM CDT Height 166.4 cm (5' 5.5) 12/23/2023 1:48 PM CDT Body Mass Index [...] 2023-2 5 season) 2024 07/26/2020 PHQ-2 (Physician Pauma) 06/29/2024 12/23/2023 Zoster Vaccines Completed 02/24/2020, 04/12/2018 [...] 8:55 PM 02/23/2019 1:38 PM Care Teams Blower Mechanic Relationship Specialty Start Date End Date Luis Chen MD [address] - [facility] [address] [place] [address] PCP - General INTERNAL MEDICINE 05/12/22
--- OUTSIDE RECORDS SUMMARY | 2024-12-28 09:03 | XMS_ITS | Clinical Summary ---
Author Organization [facility] [employer] Business Office Address [address] 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 Encounters Date Type Department Care Team Description 12/23/2024 Orders Only [facility] Oncology and Hematology - [place] [address] [address] Jim Pantoja MD Polycythemia, secondary (Primary Dx) from Last 3 Months Family History Relation Name Status Comments Brother [...] on file Legal Sex Female 5:17 AM LEAD PRESSMAN Gender Identity Not on file Sexual Orientation Not on file Last Filed Vital Signs Vital Sign Reading Time Taken Comments Blood Pressure 99/62 07/23/2022 10:14 AM LEAD PRESSMAN Pulse 71 07/23/2022 10:14 AM LEAD PRESSMAN Temperature 36.5 C (97.7 F) 07/23/2022 10:14 AM LEAD PRESSMAN Respiratory Rate 16 07/23/2022 10:14 AM LEAD PRESSMAN Oxygen Saturation 90% 07/23/2022 10:14 AM LEAD PRESSMAN hands cold Inhaled Oxygen Concentration - - Weight 61 kg (134 lb 8 oz) 07/23/2022 10:[address] Height 152.4 cm (5') 01/23/2022 11:15 AM CDT Body Mass Index 26.27 01/23/2022 11:15 AM CDT Plan of Treatment Upcoming Encounters Date Type Department Care Team (Late st Contact Info) Description 12/28/2024 9:30 AM CDT Office Visit [facility] Oncology and Hematology - [place] [address] [facility] [address] [place] [address] Jim Pantoja MD [address] [facility] [address] [place] [address] Health Maintenance Due Date Last Done Comments DTAP/TDAP/TD VACCINES (1 - Tdap) 1959 PNEUMOCOCCAL VACCINE 50+ YEARS (1 of 2 - PCV) 01/21/19 58 ZOSTER VACCINE (1 of 2) 1989 OSTEOPOROSIS SCREENING 01/22/2004 RSV VACCINE (60+ or ) (1 - 1-dose 75+ series) 2014 COVID-19 Vaccine (2 - season) 2024 INFLUENZA VACCINE (#1) 2025 Insurance MEDICARE PART A AND B AETNA MEDICARE SUPP AESSI MEDICARE PART A AND B Care Teams Safety Officer Relationship Specialty Start Date End Date Luis Chen MD [address] [place] [address] PCP - General Internal Medicine 07/23/22
--- OUTSIDE RECORDS SUMMARY | 2024-12-28 09:03 | XMS_ITS | Encounter Summary ---
Author Organization [facility] Address [facility] [place] [address] Care Team Providers Care Supervisor Front Name Role Phone Low Braxton MD Primary Care Provider [phone] Luis Chen MD Primary Care Provider [phone] Encounter Details Date Type Department Care Team (Late st Contact Info) Description 02/24/2019 Hospital Follow-up Call [facility] Med/Surg [address] [place] [address] She Gomez RN Social History [...] documented as of this encounter Care Teams Supervisor Front Relationship Specialty Start Date End Date Low Braxton MD [address] [place] [address] PCP - General INTERNAL MEDICINE 12/08/18 05/11/22 Luis Chen MD [address] - [facility] [address] [place] [phone] PCP - General INTERNAL MEDICINE 05/12/22 documented as of this encounter
--- OUTSIDE RECORDS SUMMARY | 2024-12-28 09:03 | XMS_ITS | Encounter Summary ---
Author Organization [facility] Address [address] [facility] Attn: Epic Prelude ADT [place] [address] Care Team Providers Care Rig Hand Name Role Phone Luis Chen MD Primary Care Provider + Encounter Details Date Type Department Care Team (Late st Contact Info) Description 01/23/1995 [place] [address] [facility] [address] [place] [address] Social History Tobacco Use Types Packs/Day Years Used Date Smoking Tobacco: Never Assessed Comments Unknown Sex and Gender Information Value Date Recorded Sex Assigned at Not on file Legal Sex Female 5:17 AM CIVIL DRAFTING TECHNICIAN Gender Identity Not on file Sexual Orientation Not on file documented as of this encounter Plan of Treatment Upcoming Encounters Date Type Department Care Team (Late st Contact Info) Description 12/28/2024 9:30 AM CDT Office Visit [facility] Oncology and Hematology - [place] [address] [facility] [address] [place] [address] Jim Pantoja MD [address] [facility] [address] [place] [address] documented as of this encounter Visit Diagnoses Not on filedocumented in this encounter Care Teams Rig Hand Relationship Specialty Start Date End Date Luis Chen MD [address] [place] [phone] PCP - General Internal Medicine 07/23/22 documented as of this encounter
--- OUTSIDE RECORDS SUMMARY | 2024-12-28 09:03 | XMS_ITS | Encounter Summary ---
Author Organization [facility] Address [address] [facility] Attn: Epic Prelude ADT [place] [address] Care Team Providers Care Asbestos Siding Mechanic Name Role Phone Luis Chen MD Primary Care Provider + Encounter Details Date Type Department Care Team (Late st Contact Info) Description 09/28/1999 Outpatient Historical Social History Tobacco Use Types Packs/Day Years Used Date Smoking Tobacco: Never Assessed Comments Unknown Sex and Gender Information Value Date Recorded Sex Assigned at Not on file Legal Sex Female 5:17 AM MANAGER RECRUITING Gender Identity Not on file Sexual Orientation Not on file documented as of this encounter Plan of Treatment Upcoming Encounters Date Type Department Care Team (Late st Contact Info) Description 12/28/2024 9:30 AM CDT Office Visit [facility] Oncology and Hematology - [place] [address] [facility] [address] [place] [address] Jim Pantoja MD [address] [facility] [address] [place] [address] documented as of this encounter Visit Diagnoses Not on filedocumented in this encounter Care Teams Asbestos Siding Mechanic Relationship Specialty Start Date End Date Luis Chen MD [address] [place] [address] PCP - General Internal Medicine 07/23/22 documented as of this encounter
--- OUTSIDE RECORDS SUMMARY | 2024-12-28 09:03 | XMS_ITS | Referral Summary ---
Author Organization [facility] Address [address] [place] [address] Care Team Providers Care Swimming Pool Servicer Name Role Phone Luis Chen MD Primary Care Provider [phone] Encounters Date Type Department Care Team Description 11/15/2024 Telephone [facility] Surgery [address] [facility] [address] [place] [address] Betina Batres, B.AConstantino 11/01/2024 10:30 AM CDT Office Visit [facility] Surgery [address] [place] [address] Sal Winchester MD Epigastric pain (Primary Dx) [...] 11/09/2020 Assessment & Plan (05/06/2021 8:53 AM AIR QUALITY CHEMIST): Patient continues on primidone 50 mg HS [...] on file Legal Sex Female 3:06 AM AIR QUALITY CHEMIST Gender Identity Female 11/07/2020 11:55 AM CDT [...] SUPPLEMENT MEDICARE AETNA SENIOR SUPPLEMENT Care Teams Swimming Pool Servicer Relationship Specialty Start Date End Date Luis Chen MD [address] [place] [address] PCP - General Internal Medicine 10/28/24
--- OUTSIDE RECORDS SUMMARY | 2024-12-28 09:03 | XMS_ITS | Clinical Summary ---
Author Organization [facility] Address [address] [place] [address] Care Team Providers Care Cloth Finisher Name Role Phone Luis Chen MD Primary Care Provider [phone] Allergies Active Allergy Reactions Criticality Noted Date [...] 11/09/2020 Assessment & Plan (05/06/2021 8:53 AM REGULATORY AFFAIRS ASSISTANT): Patient continues on primidone 50 mg HS [...] Type Department Care Team Description 11/15/2024 Telephone [facility] Surgery [address] [facility] [address] [place] [address] Betina Batres B.A. 11/01/2024 10:30 AM CDT Office Visit [facility] Surgery [address] [place] [address] Sal Winchester MD Epigastric pain (Primary Dx) [...] on file Legal Sex Female 3:06 AM REGULATORY AFFAIRS ASSISTANT Gender Identity Female 11/07/2020 11:55 AM CDT [...] SUPPLEMENT MEDICARE AETNA SENIOR SUPPLEMENT Care Teams Cloth Finisher Relationship Specialty Start Date End Date Luis Chen MD [address] [place] [address] PCP - General Internal Medicine 10/28/24
[2024-12-28 09:55] LABS: Alanine Aminotransferase 22 U/L (6-35); Albumin Level 4.1 g/dL (3.5-5.1); Alkaline Phosphatase 129 U/L (38-126); Aspartate Amino Transferase 45 U/L (14-36); Bilirubin,Total 0.9 mg/dL (0.2-1.3); Total Protein 6.6 g/dL (6.3-8.2)
== END 2024-12-28 08:58 | disposition home or self-care (01) ==
PROVIDERS: PCP Internal Medicine; Visit Provider Nurse Practitioner Family
DX: R74.8 Abnormal levels of other serum enzymes (principal)
CPT/HCPCS: 36415; 80076

== ENCOUNTER 2025-01-27 09:03 | Outpatient (CLI) | payer MEDICARE, SELFPAY ==
[2025-01-24 08:48] VITALS: BMI 23.8
--- NOTE | 2025-01-24 09:06 | PC.NURSE ---
Pre Radiology instructions Report to the outpatient sally gallegos on date _01/27/25 ____ at time _0900am for procedure Time: 11:00am____ YOU MAY BE MONITORED AT HOSPITAL FOR UP TO 4 HOURS AFTER YOUR PROCEDURE. A visitor will be allowed to accompany the patient into the hospital. You and your visitor will be asked to self-screen and do not enter if you have any COVID symptoms. A mask is OPTIONAL within the hospital. Patients are to have no food or drink 6 hours prior to procedure time Driving will be restricted after the procedure, you must have a person to drive you home. Labs will be drawn in preop area and once reviewed, you will be taken to radiology area for procedure. When the procedure is completed, you will be taken to outpatient where you will be monitored for several hours. You may have one visitor in this area. Other than holding anti-coagulants, patient may take other medication(s) as scheduled. Prior to your appointment date patients are instructed to hold anti-coagulants after discussing with ordering provider to stop. If unable to discontinue anti-coagulants please notify radiologist. ? No aspirin or warfarin (Coumadin) for 7 days prior to the procedure. ? No clopidogrel (Plavix), ticagrelor (Brilinta), prasugrel (Effient) or dabigatran (Pradaxa) for 5 days prior to the procedure. ? No rivaroxaban (Xarelto), apixaban (Eliquis), dipyridamole (Aggrenox or Persantine) or cilostazol (Pletal) for 2 days prior to the procedure. Medications to discontinue per physician: ___NONE Date to take last dose: NONE Please leave all valuables, including medications, at home the day of procedure. The hospital will not accept responsibility for valuables. Wear comfortable, loose fitting clothing.? Follow any additional instructions given to you from ordering provider. Telephone instructions given to _Quynh (daughter) and asked if any additional questions and then verbalized understanding. Patient advised to call scheduling provider office or registration scheduling [phone] if any additional questions.
--- NOTE | ~2025-01-27 | CT_ITS ---
EXAMINATION: CT diagnostic chest wo con DATE: 01/27/2025 10:14 INDICATION: LUNG MASS TECHNIQUE: Computed tomography (CT) of the chest was performed without intravenous contrast as a scou t for planned lung biopsy. Additional 3D reconstructions utilizing coronal maximum intensity projecti on (MIP) were performed. Automated exposure control and iterative reconstruction technique were emplo yed. The dose-length product was 136.41 mGy-cm. The patient's blood pressures were significantly elev ated at 208/87 and the planned biopsy was deferred. Biopsy should be rescheduled after improvement in blood pressure management. COMPARISON: PET/CT dated 12/13/[address] dated 11/09/2024 FINDINGS: Mild emphysema. No significant interval change in an approximately 3.3 x 2.2 cm ill-defined subsolid nodule predominantly of groundglass opacity with small regions coalescing into a more solid soft tiss ue density which given the lack of significant change in the increased FDG uptake on prior PET scan i s concerning for malignancy, particularly bronchoalveolar carcinoma. Minimal discoid atelectasis at t he bilateral lung bases. No new airspace opacities, other pulmonary nodules, pulmonary edema or pleur al effusion. Heart size is normal. Atherosclerotic coronary artery calcification. No pericardial effu arlen. Thoracic aorta is normal in caliber. Calcified right hilar and mediastinal lymph nodes along wi th couple hepatic and splenic calcifications consistent with old granulomatous disease. There are cou ple small calcite gallstones at the dependent neck of the otherwise normal-appearing gallbladder. 1 c m low-attenuation hepatic cyst.. Moderate thoracic spondylosis with chronic mild anterior wedging of a few mid thoracic vertebral bodies. IMPRESSION: 1. Mild emphysema with no interval change in a 3.3 x 2.2 cm subsolid nodule with prominent groundglas s opacity in the right upper lobe which remains concerning for malignancy particularly bronchoalveola r carcinoma. Planned biopsy was deferred due to markedly elevated blood pressures (208/87). Would rec ommend rescheduling biopsy following optimization of blood pressure management. 2. Cholelithiasis. Reviewed, dictated and finalized at location A. IMPRESSION: 1. Mild emphysema with no interval change in a 3.3 x 2.2 cm subsolid nodule wit h prominent groundglass opacity in the right upper lobe which remains concernin g for malignancy particularly bronchoalveolar carcinoma. Planned biopsy was def erred due to markedly elevated blood pressures (208/87). Would recommend resche duling biopsy following optimization of blood pressure management. 2. Cholelithiasis.
--- OUTSIDE RECORDS SUMMARY | 2025-01-27 09:07 | XMS_ITS | Clinical Summary ---
Author Organization [facility] [employer] Business Office Address [address] [facility] [address] [place] [address] Care Team Providers Care Business Management Manager Name Role Phone Luis Chen MD Primary Care Provider + Allergies Active Allergy Reactions Criticality Noted Date Comments Sulfa (Sulfonamide Antibiotics) Hives,Rash High 12/28 Medications atorvastatin (LIPITOR) 10 mg tablet Take 80 mg by mouth daily. 1 Active levothyroxine 50 mcg tablet Take 50 mcg by mouth daily. 9 Active propranoloL (INDERAL LA) 80 mg Long Acting 24 hour capsule Take 120 mg by mouth daily. 9 Active pantoprazole (PROTONIX) 40 mg Tablet, Delayed Release (E.C.) Take 40 mg by mouth daily. 2 Active valsartan (DIOVAN) 320 mg tablet Take 320 mg by mouth daily. Active escitalopram oxalate (LEXAPRO) 10 mg tablet Take 1 Tablet by mouth daily. 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 Encounters Date Type Department Care Team Description 01/11/2025 External Device Data ST[facility] ABSTRACTION Provider, Abstract 01/11/2025 External Device Data ST[facility] ABSTRACTION Provider, Abstract 01/03/2025 External Device Data ST[place] ABSTRACTION Provider, Abstract 01/03/2025 External Device Data ST[place] ABSTRACTION Provider, Abstract 01/03/2025 External Device Data [place] ABSTRACTION Provider, Abstract 12/28/2024 9:30 AM CDT Office Visit [facility] Oncology and Hematology [facility] [address] [place] [address] Jim Pantoja MD Lung mass (Primary Dx) 12/23/2024 Orders Only [facility] Oncology and Hematology [facility] [address] [place] [address] Jim Pantoja MD Polycythemia, secondary (Primary [...] on file Legal Sex Female 5:17 AM BRAKE 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 Gender Identity Not on file Sexual Orientation Not on file Last Filed Vital Signs Vital Sign Reading Time Taken Comments Blood Pressure 135/80 12/28/2024 9:26 AM CDT Pulse 79 12/28/2024 9:26 AM CDT Temperature 36.4 C (97.5 F) 12/28/2024 9:26 AM CDT Respiratory Rate 15 12/28/2024 9:26 AM CDT Oxygen Saturation 91% 12/28/2024 9:26 AM CDT Inhaled Oxygen Concentration - - Weight 55.8 kg (123 lb) 12/28/2024 9:26 AM CDT Height 152.4 cm (5') 01/23/2022 11:15 AM CDT Body Mass Index 24.02 01/23/2022 11:15 AM CDT Plan of Treatment Upcoming Encounters Date Type Department Care Team (Late st Contact Info) Description 02/02/2025 4:30 PM CDT Telephone Check Up [facility] Oncology and Hematology [facility] [address] [place] [address] Jim Pantoja MD [address] [facility] [address] [place] [address] Health Maintenance Due Date Last Done Comments DTAP/TDAP/TD VACCINES (1 - Tdap) 1959 PNEUMOCOCCAL VACCINE 50+ YEA RS (1 of 2 - PCV) 1958 OSTEOPOROSIS SCREENING 01/22/2004 RSV VACCINE (60+ or ) (1 - 1-dose 75+ series) 2014 COVID-19 Vaccine (2 - season) 2024 INFLUENZA VACCINE (#1) 2025 04/12/2018 ZOSTER VACCINE Completed 02/24/2020, 04/12/2018 Insurance MEDICARE PART A AND B AETNA MEDICARE SUPP AESSI MEDICARE PART A AND B AETNA MEDICARE SUPP AESSI Care Teams Business Management Manager Relationship Specialty Start Date End Date Luis Chen MD [address] [place] [address] PCP - General Internal Medicine 07/23/22
--- OUTSIDE RECORDS SUMMARY | 2025-01-27 09:07 | XMS_ITS | Encounter Summary ---
Author Organization [facility] Address [address] [facility] Attn: Epic Prelude ADT [place] [address] Care Team Providers Care Fancy Stitcher Name Role Phone Luis Chen MD Primary Care Provider + Encounter Details Date Type Department Care Team (Late st Contact Info) Description 01/23/1995 [place] [address] [facility] [address] [place] [address] Social History Tobacco Use Types Packs/Day Years Used Date Smoking Tobacco: Never Assessed Comments Unknown Sex and Gender Information Value Date Recorded Sex Assigned at Not on file Legal Sex Female 5:17 AM FABRIC AND TEXTILE FACTORY WORKER Gender Identity Not on file Sexual Orientation Not on file documented as of this encounter Plan of Treatment Upcoming Encounters Date Type Department Care Team (Late Contact Info) Description 02/02/2025 4:30 PM CDT Telephone Check Up [facility] Oncology and Hematology - [place] [address] [facility] [address] [place] [address] Jim Pantoja MD [address] [facility] [address] [place] [address] documented as of this encounter Visit Diagnoses Not on filedocumented in this encounter Care Teams Fancy Stitcher Relationship Specialty Start Date End Date Luis Chen MD [address] [place] [address] PCP - General Internal Medicine 07/23/22 documented as of this encounter
--- OUTSIDE RECORDS SUMMARY | 2025-01-27 09:07 | XMS_ITS | Referral Summary ---
Author Organization [facility] Address [address] [place] [address] Care Team Providers Care College Professor Name Role Phone Luis Chen MD Primary Care Provider [phone] Encounters Date Type Department Care Team Description 11/15/[address] [facility] Surgery [address] [facility] [address] [place] [address] Betina Batres, B.AConstantino 11/01/2024 10:30 AM CDT Office Visit [facility] Surgery [address] [place] [address] Sal Winchester MD Epigastric pain (Primary Dx) [...] 11/09/2020 Assessment & Plan (05/06/2021 8:53 AM PATIENT ACCOUNT REPRESENTATIVE): Patient continues on primidone 50 mg HS [...] on file Legal Sex Female 3:06 AM PATIENT ACCOUNT REPRESENTATIVE Gender Identity Female 11/07/2020 11:55 AM CDT [...] SUPPLEMENT MEDICARE AETNA SENIOR SUPPLEMENT Care Teams College Professor Relationship Specialty Start Date End Date Luis Chen MD [address] [place] [address] PCP - General Internal Medicine 10/28/24
--- OUTSIDE RECORDS SUMMARY | 2025-01-27 09:07 | XMS_ITS | Encounter Summary ---
Author Organization [facility] Address [facility] [place] [address] Care Team Providers Care Development Technologist Name Role Phone Low Braxton MD Primary Care Provider [phone] Luis Chen MD Primary Care Provider [phone] Encounter Details Date Type Department Care Team (Late st Contact Info) Description 02/24/2019 Hospital Follow-up Call [facility] Med/Surg [address] [place] [address] She Gomez RN Social History [...] documented as of this encounter Care Teams Development Technologist Relationship Specialty Start Date End Date Low Braxton MD [address] [place] [address] PCP - General INTERNAL MEDICINE 12/08/18 05/11/22 Luis Chen MD [address] - [facility] [address] [place] [address] PCP - General INTERNAL MEDICINE 05/12/22 documented as of this encounter
--- OUTSIDE RECORDS SUMMARY | 2025-01-27 09:07 | XMS_ITS | Clinical Summary ---
Author Organization [facility] Address [address] [place] [address] Care Team Providers Care Station Air Traffic Control Specialist Name Role Phone Luis Chen MD Primary Care Provider [phone] Allergies Active Allergy Reactions Criticality Noted Date [...] 11/09/2020 Assessment & Plan (05/06/2021 8:53 AM BELT CLEANER): Patient continues on primidone 50 mg HS [...] Type Department Care Team Description 11/15/2024 Telephone [facility] [address] [facility] Floor 5 [place] [address] Betina Batres B.A. 11/01/2024 10:30 AM CDT Office Visit [facility] [address] [place] [address] Sal Winchester MD Epigastric pain (Primary Dx) [...] Prostrate Prostate cancer Brother Prostrate Cancer Father Loe Heart attack Father Leo Heart attack Mother [...] on file Legal Sex Female 3:06 AM BELT CLEANER Gender Identity Female 11/07/2020 11:55 AM CDT [...] (3 - season) 02/28/202407/2020, 07/26/2020 Influenza Vaccine (#1) 2025 9, 04/12/2018, 05/25/2017 Zoster Vaccine Completed 02/24/2020, 04/12/2018 Insurance AETNA SENIOR SUPPLEMENT MEDICARE MEDICARE AET SENIOR SUPPLEMENT MEDICARE AETNA SENIOR SUPPLEMENT Care Teams Station Air Traffic Control Specialist Relationship Specialty Start Date End Date Luis Chen MD [address] [place] [address] PCP - General Internal Medicine 10/28/24
--- OUTSIDE RECORDS SUMMARY | 2025-01-27 09:07 | XMS_ITS | Clinical Summary ---
Author Organization [facility] Address [address] [place] [address] Care Team Providers Care Flanging Roll Operator Name Role Phone Luis Chen MD Primary Care Provider [phone] Allergies Active Allergy Reactions Criticality Noted Date [...] 2023-2 5 season) 2024 07/26/2020 PHQ-2 (Physician [place]) 06/29/2024 12/23/2023 Zoster Vaccines Completed 02/24/2020, 04/12/2018 Meningococcal B Vaccine Aged Out No l onger eligible based on patient's age to complete this topic Meningococcal Vaccine Aged Out No amber abhinav eligible based on patient's age to complete this topic RSV Immunizations Under 20 Months Aged Out No longer eligible b ased on patient's age to complete this topic [place] [id number] Advance Directives * Full Code (Latest Code Status on File) Date Activated Date Inactivated Comments 02/19/2019 8:55 PM 02/23/2019 1:38 PM Care Teams Flanging Roll Operator Relationship Specialty Start Date End Date Luis Chen MD [address] - [facility] [address] [place] [address] PCP - General INTERNAL MEDICINE 05/12/22
--- OUTSIDE RECORDS SUMMARY | 2025-01-27 09:08 | XMS_ITS | Encounter Summary ---
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 Oncology and Hematology - [place] [address] [facility] [address] [place] [address] Jim Pantoja MD [address] [facility] [address] [place] [address] documented as of this encounter Visit Diagnoses Not on filedocumented in this encounter Care Teams Spray Stainer Relationship Specialty Start Date End Date Luis Chen MD [address] [place] [address] PCP - General Internal Medicine 07/23/22 documented as of this encounter
[2025-01-27 10:00] VITALS: BP 189/98
[2025-01-27 13:03] VITALS: BMI 24.4
[2025-01-27 13:04] VITALS: BP 208/87; PULSE 55; RESP 18; TEMP 35.7; O2SAT 97
== END 2025-01-27 11:00 | disposition home or self-care (01) ==
PROVIDERS: PCP Internal Medicine; Referring Provider Internal Medicine Hematology & Oncology; Visit Provider Radiology Diagnostic Radiology
PROC: BB24ZZZ Computerized Tomography (CT Scan) of Bilateral Lungs (ICD-10-PCS; CPT 32408; principal; 2025-01-27 11:00)
DX: Z01.818 Encounter for other preprocedural examination (principal); J43.9 Emphysema, unspecified; K80.20 Calculus of gallbladder without cholecystitis without obstruction
CPT/HCPCS: 71250

== ENCOUNTER 2025-02-10 00:02 | Day surgery (SDC) | payer MEDICARE, SELFPAY ==
[2025-01-24 15:36] VITALS: BMI 24.4
--- OUTSIDE RECORDS SUMMARY | 2025-02-10 00:10 | XMS_ITS | Encounter Summary ---
Author Organization [facility] Address [address] [facility] Attn: [place] [address] Care Team Providers Care Air Conditioning Installer Supervisor Name Role Phone Luis Chen MD Primary Care Provider + Encounter Details Date Type Department Care Team (Late st Contact Info) Description 01/23/1995 [place] [address] [facility] [address] [place] [address] Social History Tobacco Use Types Packs/Day Years Used Date Smoking Tobacco: Never Assessed Comments Unknown Sex and Gender Information Value Date Recorded Sex Assigned at Not on file 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 Gender Identity Not on file Sexual Orientation Not on file documented as of this encounter Plan of Treatment Upcoming Encounters Date Type Department Care Team (Late st Contact Info) Description 02/21/2025 6:30 AM CDT Appointment [facility] Scan S [facility] [address] [place] [address] Jim Pantoja MD [address] [facility] [address] [place] [address] 02/21/2025 4:35 PM CDT Telephone Check Up [facility] Oncology and Hematology - [place] [address] [facility] [address] [place] [address] Jim Pantoja MD [address] [facility] [address] [place] [address] documented as of this encounter Visit Diagnoses Not on filedocumented in this encounter Care Teams Air Conditioning Installer Supervisor Relationship Specialty Start Date End Date Luis Chen MD [address] [place] [address] PCP - General Internal Medicine 07/23/22 documented as of this encounter
--- OUTSIDE RECORDS SUMMARY | 2025-02-10 00:10 | XMS_ITS | Encounter Summary ---
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 Gender Identity Not on file Sexual Orientation Not on file documented as of this encounter Plan of Treatment Upcoming Encounters Date Type Department Care Team (Late Contact Info) Description 02/21/2025 6:30 AM CDT Appointment [facility] Scan S [facility] [address] [place] [address] Jim Pantoja MD [address] [facility] [address] [place] [address] 16, [facility] Prepost Cele, [facility] [address] 02/21/2025 4:35 PM CDT Telephone Check Up [facility] Oncology and Hematology - [place] [address] [facility] [address] [place] [address] Jim Pantoja MD [address] [facility] [address] [place] [address] documented as of this encounter Visit Diagnoses Not on filedocumented in this encounter Care Teams Vegetable Sorter Relationship Specialty Start Date End Date Luis Chen MD [address] [place] [address] PCP - General Internal Medicine 07/23/22 documented as of this encounter
--- OUTSIDE RECORDS SUMMARY | 2025-02-10 00:10 | XMS_ITS | Clinical Summary ---
Author Organization [facility] [employer] Address [address] [place] [address] Care Team Providers Care Rn Physician Office Name Role Phone Luis Chen MD Primary [...] Encounters Date Type Department Care Team Description 02/07/2025 External Device Data STL ABSTRACTION Provider, Abstract 01/11/2025 External Device Data [place] ABSTRACTION Provider, Abstract 01/11/2025 External Device Data [place] ABSTRACTION Provider, Abstract 01/03/2025 External Device Data [place] ABSTRACTION Provider, Abstract 01/03/2025 External Device Data [place] ABSTRACTION Provider, Abstract 01/03/2025 External Device Data [place] ABSTRACTION Provider, Abstract 12/28/2024 9:30 AM CDT Office Visit [facility] Oncology and Hematology [facility] [address] [place] [address] Jim Pantoja MD Lung mass (Primary Dx) 12/23/2024 Orders Only [facility] Oncology and Hematology [place] [address] [place] [address] Jim Pantoja MD Polycythemia, secondary (Primary Dx) [...] on file 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 Gender Identity Not on file Sexual Orientation [...] Info) Description 02/21/2025 6:30 AM CDT Appointment [facility] Scan S Schu[facility]ley [address] [place] [address] Jim Pantoja MD [address] [facility] [address] [place] [address] [facility] 02/21/2025 4:35 PM CDT Telephone Check Up [facility] Oncology and Hematology - [place] [address] [facility] [address] [place] [address] Jim Pantoja MD [address] [facility] [address] [place] [address] Health Maintenance Due Date Last Done Comments DTAP/TDAP/TD VACCINES (1 - Tdap) 1959 PNEUMOCOCCAL VACCINE 50+ YEA RS (1 of 2 - PCV) 1959 Traditional Medicare (ACO) A nnual Wellness Visit 1959 OSTEOPOROSIS SCREENING 01/22/2004 RSV VACCINE (60+ or ) (1 - 1-dose 75+ series) 2014 COVID-19 Vaccine (2 - season) 2024 INFLUENZA VACCINE (#1) 2025 04/12/2018 ZOSTER VACCINE Completed 02/24/2020, 04/12/2018 Insurance MEDICARE PART A AND B AETNA MEDICARE SUPP AESSI MEDICARE PART A AND B AETNA MEDICARE SUPP AESSI Care Teams Rn Physician Office Relationship Specialty Start Date End Date Luis Chen MD [address] [place] [address] PCP - General Internal Medicine 07/23/22
--- OUTSIDE RECORDS SUMMARY | 2025-02-10 00:10 | XMS_ITS | Clinical Summary ---
Author Organization [facility] Address [address] [place] [address] Care Team Providers Care Automatic Seamer Name Role Phone Luis Chen MD Primary Care Provider [phone] Allergies Active Allergy Reactions Criticality Noted Date [...] 11/09/2020 Assessment & Plan (05/06/2021 8:53 AM CUSTOMER EXPERIENCE ANALYST): Patient continues on primidone 50 mg HS [...] Type Department Care Team Description 11/15/2024 Telephone [facility] Surgery [address] [facility] [address] [place] [address] Betina Batres B.A. from Last 3 Months Surgical History Surgery [...] on file Legal Sex Female 3:06 AM CUSTOMER EXPERIENCE ANALYST Gender Identity Female 11/07/2020 11:55 AM CDT [...] Vaccine Completed 02/24/2020, 04/12/2018 Insurance AETNA SENIOR [facility] MEDICARE [facility] Address: [address] [address] [place] [address] MEDICARE AETNA SENIOR SUPPLEMENT ([place] [id number] MEDICARE AETNA SENIOR SUPPLEMENT Care Teams Automatic Seamer Relationship Specialty Start Date End Date Luis Chen MD [address] [place] [address] PCP - General Internal Medicine 10/28/24
--- OUTSIDE RECORDS SUMMARY | 2025-02-10 00:10 | XMS_ITS | Clinical Summary ---
Author Organization [facility] Address [address] [place] [address] Care Team Providers Care Nanosystems Engineer Name Role Phone Luis Chen MD Primary Care Provider [phone] Allergies Active Allergy Reactions Criticality Noted Date [...] 2023-2 5 season) 2024 07/26/2020 PHQ-2 (Physician [place]) 06/29/2024 12/23/2023 Zoster Vaccines Completed 02/24/2020, 04/12/2018 [...] 8:55 PM 02/23/2019 1:38 PM Care Teams Nanosystems Engineer Relationship Specialty Start Date End Date Luis Chen MD [address] - [facility] [address] [place] [address] PCP - General INTERNAL MEDICINE 05/12/22
--- OUTSIDE RECORDS SUMMARY | 2025-02-10 00:10 | XMS_ITS | Encounter Summary ---
Author Organization [facility] Address [facility] [place] [address] Care Team Providers Care Tape Coater Name Role Phone Low Braxton MD Primary Care Provider [phone] Luis Chen MD Primary Care Provider [phone] Encounter Details Date Type Department Care Team (Late st Contact Info) Description 02/24/2019 Hospital Follow-up Call [facility] Med/Surg [address] [place] [address] She Gomez RN Social History [...] documented as of this encounter Care Teams Tape Coater Relationship Specialty Start Date End Date Low Braxton MD [address] [place] [address] PCP - General INTERNAL MEDICINE 12/08/18 05/11/22 Luis Chen MD [address] - [facility] [address] [place] [address] PCP - General INTERNAL MEDICINE 05/12/22 documented as of this encounter
[2025-02-10 09:14] VITALS: BP 93/51; PULSE 83; RESP 18; TEMP 36.1; O2SAT 97; BMI 24.0
[2025-02-10] MEDS: LACTATED RINGERS 1,000 ML 150 ML IV CONT (09:34)
--- NOTE | 2025-02-10 10:17 | P.HP_ITS ---
H&P: HPI History of Present Illness Date/Time: 02/10/25 10:17 Chief Complaint: History of recent diverticulitis- GERD Narrative: this patient was admitted in October for a apparent episode of diverticulitis. Imaging study showed a possible sigmoid mass, therefore she is here for a colonoscopy. In addition, she has been complaining of GERD therefore an EGD is also indicated. Review of Systems Review of Systems: All systems reviewed & are unremarkable except as noted in HPI and below PMFSH Past Medical History Medical History (Updated 11/29/24 @ 11:40 by Kendra Cason [facility]) Ground glass opacity present on imaging of lung BMI 23.0-23.9, adult Hospital discharge follow-up Diverticulitis Sacroiliac joint pain Yeast infection Dysuria Night sweats Urinary frequency Rash Depression Vitamin D deficiency History of kidney stones Stress Acute sinusitis Encounter for routine adult health examination without abnormal findings Cardiac calcification Impaired functional mobility, balance, gait, and endurance Encounter for Medicare annual wellness exam BMI 25.0-25.9,adult Lung nodule Tricuspid valve regurgitation Grade II diastolic dysfunction Follow up Viral warts Ganglion cyst of finger Elective procedure for unacceptable cosmetic appearance Heart murmur Hypothyroidism (acquired) Carotid bruit Hemochromatosis Benign familial tremor 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 BMI 24.0-24.9, adult Encounter to establish care Internal hemorrhoids Esophageal varices Gastric nodule Esophagitis Hyperlipidemia Benign essential hypertension High cholesterol Thyroid disease Surgical History Surgical History H/O colonoscopy History of esophagogastroduodenoscopy (EGD) H/O oophorectomy Family History Family History Father Idiopathic Parkinson's disease Mother Heart disease Sibling Malignant neoplasm of prostate Son Diabetes mellitus Social History Social History Smoking packs per day: 1 Smoking cigarettes per day: 20.0 Smoking status: Never smoker Tobacco type: cigarettes Alcohol intake: current Alcohol use details: occasional Substance use: never Substance use type: does not use Do You Feel Safe in your Home?: Yes Lack of Transportation: No Lack of Food: Never True Current Housing: I Have Housing Concerned About Future Housing: No Difficulty Paying Gas/Electric Bills: No Difficulty Paying for Meds: No Currently Unemployed: No Education: High School Diploma/GED Difficulty w/ Childcare or Family Care: No Living arrangements: alone Additional living arrangements comments: at home with some hired hands 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 care concerns: No Agree to blood products: Yes Meds Home Medications and Allergies Home Medications ?Medication ?Instructions ?Recorded ?Confirmed ?Type cholecalciferol (vitamin D3) 50 50 mcg PO DAILY 09/09/22 02/10/25 History mcg (2,000 unit) capsule nystatin-triamcinolone 100,000 1 applic topical BID PRN itching 09/16/24 01/27/25 History unit/g-0.1 % topical cream atorvastatin 80 mg tablet See Rx Instructions .Route 11/02/24 02/10/25 Rx .COMPLEX #90 tabs pantoprazole 40 mg tablet,delayed 40 mg PO QAM #90 tabs 11/15/24 02/10/25 Rx release albuterol sulfate 90 mcg/actuation 1 puff inhalation Q4H PRN 11/29/24 01/24/25 Rx aerosol inhaler (Ventolin HFA) shortness of breath or wheezing #6.7 grams levothyroxine 50 mcg tablet 50 mcg PO DAILY #90 tabs 12/14/24 02/10/25 Rx (Synthroid) propranolol 120 mg capsule,24 120 mg PO DAILY #30 caps 01/16/25 02/10/25 Rx hr,extended release (Inderal [place]) valsartan 320 mg tablet See Rx Instructions .Route 01/23/25 02/10/25 Rx .COMPLEX #90 tabs escitalopram oxalate 10 mg tablet See Rx Instructions .Route 01/25/25 02/10/25 Rx .COMPLEX #90 tabs amlodipine 5 mg tablet 5 mg PO DAILY #30 tabs 01/27/25 02/10/25 Rx alprazolam 0.25 mg tablet 0.25 mg PO TID PRN anxiety #90 tabs 01/31/25 02/10/25 Rx hydrochlorothiazide 12.5 mg tablet 12.5 mg PO DAILY #30 tabs 01/31/25 02/10/25 Rx Allergies Allergy/AdvReac Type Severity Reaction Status Date / Time Sulfa (Sulfonamide Allergy Unknown Unknown Verified 02/10/25 09:11 Antibiotics) Vital Signs Vital Signs - 24 hr 02/10/25 09:14 Temperature 97 F L Pulse Rate 83 Respiratory Rate 18 Blood Pressure 93/51 L Pulse Oximetry 97 Oxygen Delivery Room Air Exam Const: General: cooperative and healthy appearing Resp: Effort & Inspection: normal respiratory effort and able to speak in complete sentences Auscultation: clear to auscultation bilaterally Cardio: Rate: regular rate Rhythm: regular rhythm GI: Inspection: normal to inspection GI Palp: No No hepatosplenomegaly present Auscultation: normal bowel sounds Rectal Exam: deferred Skin: General skin exam: normal color Psych: Appearance: grossly normal Mental Status: mental status grossly normal Assessment and Plan Assessment and plan (1) Sigmoid diverticulitis: Code(s): K57.32 - Diverticulitis of large intestine without perforation or abscess without bleeding Status: Acute Assessment and Plan: The patient is deemed a good candidate for the procedures. Consent signed. Will proceed. (2) GERD (gastroesophageal reflux disease): Qualifiers: Esophagitis presence: esophagitis presence not specified Qualified Code(s): K21.9 - Gastro-esophageal reflux disease without esophagitis Code(s): K21.9 - Gastro-esophageal reflux disease without esophagitis Status: Acute
--- NOTE | 2025-02-10 10:24 | P.PNAN_ITS ---
Anes - Initial Pre Proc Eval Procedure: Operation Date: 02/10/25 10:15 Proposed Procedures p Esophagogastroduodenoscopy & Colonoscopy - Ricardo Dodson MD Date/Time: 02/10/25 10:24 Surgeon: Ricardo Dodson MD Pre Op Diagnosis: Diverticulitis of large intestine without perforat Patient Data Age: 85 Gender: F Height: 1.52 m Weight: 55.7 kg Last Vital Signs Temp 36.1 C L 02/10/25 09:14 Pulse 83 02/10/25 09:14 Resp 18 02/10/25 09:14 BP 93/51 L 02/10/25 09:14 Pulse Ox 97 02/10/25 09:14 O2 Del Method Room Air 02/10/25 09:14 Allergies Allergy/AdvReac Type Severity Reaction Status Date / Time Sulfa (Sulfonamide Allergy Unknown Unknown Verified 02/10/25 09:11 Antibiotics) Home Medications ?Medication ?Instructions ?Recorded ?Confirmed ?Type cholecalciferol (vitamin D3) 50 50 mcg PO DAILY 09/09/22 02/10/25 History mcg (2,000 unit) capsule nystatin-triamcinolone 100,000 1 applic topical BID PRN itching 09/16/24 01/27/25 History unit/g-0.1 % topical cream atorvastatin 80 mg tablet See Rx Instructions .Route 11/02/24 02/10/25 Rx .COMPLEX #90 tabs pantoprazole 40 mg tablet,delayed 40 mg PO QAM #90 tabs 11/15/24 02/10/25 Rx release albuterol sulfate 90 mcg/actuation 1 puff inhalation Q4H PRN 11/29/24 01/24/25 Rx aerosol inhaler (Ventolin HFA) shortness of breath or wheezing #6.7 grams levothyroxine 50 mcg tablet 50 mcg PO DAILY #90 tabs 12/14/24 02/10/25 Rx (Synthroid) propranolol 120 mg capsule,24 120 mg PO DAILY #30 caps 01/16/25 02/10/25 Rx hr,extended release (Inderal [place]) valsartan 320 mg tablet See Rx Instructions .Route 01/23/25 02/10/25 Rx .COMPLEX #90 tabs escitalopram oxalate 10 mg tablet See Rx Instructions .Route 01/25/25 02/10/25 Rx .COMPLEX #90 tabs amlodipine 5 mg tablet 5 mg PO DAILY #30 tabs 01/27/25 02/10/25 Rx alprazolam 0.25 mg tablet 0.25 mg PO TID PRN anxiety #90 tabs 01/31/25 02/10/25 Rx hydrochlorothiazide 12.5 mg tablet 12.5 mg PO DAILY #30 tabs 01/31/25 02/10/25 Rx Patient hx anesthesia problems: none Family hx anesthesia problems: none Results Review: All pre-operative results and documents have been reviewed as part of the pre- operative evaluation. [facility] Past Medical History Medical History Ground glass opacity present on imaging of lung BMI 23.0-23.9, adult Hospital discharge follow-up Diverticulitis Sacroiliac joint pain Yeast infection Dysuria Night sweats Urinary frequency Rash Depression Vitamin D deficiency History of kidney stones Stress Acute sinusitis Encounter for routine adult health examination without abnormal findings Cardiac calcification Impaired functional mobility, balance, gait, and endurance Encounter for Medicare annual wellness exam BMI 25.0-25.9,adult Lung nodule Tricuspid valve regurgitation Grade II diastolic dysfunction Follow up Viral warts Ganglion cyst of finger Elective procedure for unacceptable cosmetic appearance Heart murmur Hypothyroidism (acquired) Carotid bruit Hemochromatosis Benign familial tremor On assisted drug therapy BMI 24.0-24.9, adult Encounter to establish care Internal hemorrhoids Esophageal varices Gastric nodule Esophagitis Hyperlipidemia Benign essential hypertension High cholesterol Thyroid disease Surgical History Surgical History H/O colonoscopy History of esophagogastroduodenoscopy (EGD) H/O oophorectomy Family History Family History Father Idiopathic Parkinson's disease Mother Heart disease Sibling Malignant neoplasm of prostate Son Diabetes mellitus Social History Social History Smoking packs per day: 1 Smoking cigarettes per day: 20.0 Smoking status: Never smoker Tobacco type: cigarettes Alcohol intake: current Alcohol use details: occasional Substance use: never Substance use type: does not use Do You Feel Safe in your Home?: Yes Lack of Transportation: No Lack of Food: Never True Current Housing: I Have Housing Concerned About Future Housing: No Difficulty Paying Gas/Electric Bills: No Difficulty Paying for Meds: No Currently Unemployed: No Education: High School Diploma/GED Difficulty w/ Childcare or Family Care: No Living arrangements: alone Additional living arrangements comments: at home with some hired hands 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 care concerns: No Agree to blood products: Yes Anes - Eval Final PreProcedure Day of Procedure 02/10/25 10:24 Patient weight: normal Heart: regular rate and rhythm Lungs: normal air movement Airway: Mallampati scale class II Neurological: alert and oriented Last oral intake: >/= 8 hours Emergent: no Anesthetic plan: proceed Anesthesia type and monitoring: general GIVS and standard monitoring Results Review: All pre-operative results and documents have been reviewed as part of the pre- operative evaluation. Informed Consent: The patient's anesthetic plan and its attendant risks and benefits were discussed with the patient/family/POA. Questions were solicited and answers provided to the satisfaction of the patient/family/POA.
--- NOTE | 2025-02-10 10:45 | SUR.OPER ---
EGD end 1039 COLONSCOPY START 1048
--- NOTE | 2025-02-10 10:57 | S_PTH ---
PATIENT: Sherrie Vasquez LOC: [facility] U#:[id number] AGE/SX: 85/F ROOM: RE02/10/[address]: Ricardo Dodson MD : 1940 BED: DIS: 02/10/2025 SPEC #: [id number] RECD: 02/10/25 11:19 STATUS: RENATE REQ #: [id number] ADE: 02/10/25 10:[address]: Ricardo Dodson DEPT: [facility] Surgical RECD BY: Bhavana Radford ENTERED: 02/10/25 11:19 SP TYPE: Surgical OTHR DR: Luis Chen MD Tissues: A - Colon Polypectomy B - Gastric Biopsy C - Gastric Biopsy Procedures: Hematoxylin and Eosin Stain Gross and Microscopic Level 4
[2025-02-10 10:59] VITALS: BP 92/69; PULSE 74; RESP 21; O2SAT 98
[2025-02-10 11:09] VITALS: BP 127/82; PULSE 76; RESP 21; O2SAT 98
[2025-02-10 11:19] VITALS: BP 140/69; PULSE 60; RESP 19; O2SAT 98
== END 2025-02-10 11:32 | disposition home or self-care (01) ==
PROVIDERS: PCP Internal Medicine; Referring Provider Internal Medicine Gastroenterology; Visit Provider Internal Medicine Gastroenterology
PROC: 0DJ08ZZ Inspection of Upper Intestinal Tract, Via Natural or Artificial Opening Endoscopic (ICD-10-PCS; CPT 45378; principal; 2025-02-10 10:15)
DX: K57.30 Diverticulosis of large intestine without perforation or abscess without bleeding (principal); D12.3 Benign neoplasm of transverse colon; K29.30 Chronic superficial gastritis without bleeding; E78.5 Hyperlipidemia, unspecified; E55.9 Vitamin D deficiency, unspecified; E03.9 Hypothyroidism, unspecified; I11.9 Hypertensive heart disease without heart failure; G25.0 Essential tremor; R35.0 Frequency of micturition; F32.A Depression, unspecified; R26.89 Other abnormalities of gait and mobility; I07.1 Rheumatic tricuspid insufficiency; R01.1 Cardiac murmur, unspecified; Z98.890 Other specified postprocedural states; Z79.899 Other long term (current) drug therapy; Z79.51 Long term (current) use of inhaled steroids; Z87.442 Personal history of urinary calculi; Z87.19 Personal history of other diseases of the digestive system; Z80.42 Family history of malignant neoplasm of prostate; Z82.49 Family history of ischemic heart disease and other diseases of the circulatory system
CPT/HCPCS: 43239; 45385; 88305; J2003; J2704; J7120

== ENCOUNTER 2025-03-08 10:56 | Outpatient (CLI) | payer MEDICARE, SELFPAY ==
--- NOTE | ~2025-03-08 | XR_ITS ---
EXAMINATION: XR chest 2V 03/08/2025 11:29 INDICATION: Shortness of breath. Recent lung biopsy with healing pneumothorax. TECHNIQUE:Frontal and lateral images of the chest were obtained. COMPARISON: Chest x-ray 11/24/2024; CT chest 01/27/2025 FINDINGS: Heart is enlarged, unchanged. No pneumothorax identified. No pleural effusion. No free air in the diaphragm. Grossly stable right upper lobe consolidation IMPRESSION: 1: Grossly stable right upper lobe consolidation as compared to the chest CT from 01/27/2025. Short-term follow-up is recommended. Recommend follow-up to resolution. 2. No pneumothorax identified. Reviewed, dictated and finalized at location Q. IMPRESSION: 1: Grossly stable right upper lobe consolidation as compared to the chest CT f rom 01/27/2025. Short-term follow-up is recommended. Recommend follow-up to resol ution. 2. No pneumothorax identified.
--- OUTSIDE RECORDS SUMMARY | 2025-03-08 11:52 | XMS_ITS | Clinical Summary ---
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): Patient continues on primidone 50 mg HS [...] on file Legal Sex Female 3:06 AM POLICE CAPTAIN SENIOR Gender Identity Female 11/07/2020 11:55 AM CDT [...] 1959 Well Visit 65+ 01/22/2004 Covid-19 Vaccine ( season) 02/28/202407/2020, 07/26/2020 Influenza Vaccine (#1) 2025 9, 04/12/2018, 05/25/2017 Zoster Vaccine Completed 02/24/2020, 04/12/2018 Insurance [employer] SENIOR SUPPLEMENT MEDICARE MEDICARE [employer] SENIOR SUPPLEMENT MEDICARE [employer] SENIOR SUPPLEMENT Care Teams Personal Computer Network Engineer Relationship Specialty Start Date End Date Luis Chen MD [address] [facility] [address] [facility] [address] [place] [address] PCP - General Internal Medicine 10/28/24
--- OUTSIDE RECORDS SUMMARY | 2025-03-08 11:53 | XMS_ITS | Clinical Summary ---
Author Organization [facility] Address [address] [place] [address] Care Team Providers Care Pediatric Licensed Practical Nurse Name Role Phone Luis Chen MD Primary Care Provider [phone] Allergies Active Allergy Reactions Criticality Noted Date [...] Years (1 - 1-dose 75+ series) 2014 PHQ-2 (Physician [place]) 06/29/2024 12/23/2023 COVID-19 Vaccine (2 - 2024- 6 season) 2025 07/26/2020 Zoster Vaccines Completed 02/24/2020, 04/12/2018 Meningococcal B [...] 8:55 PM 02/23/2019 1:38 PM Care Teams Pediatric Licensed Practical Nurse Relationship Specialty Start Date End Date Luis Chen MD [address] - [facility] [address] [place] [address] PCP - General INTERNAL MEDICINE 05/12/22
--- OUTSIDE RECORDS SUMMARY | 2025-03-08 11:53 | XMS_ITS | Encounter Summary ---
Author Organization [facility] Address [facility] [place] [address] Care Team Providers Care Winding Department Supervisor Name Role Phone Low Braxton MD Primary Care Provider [phone] Luis Chen MD Primary Care Provider [phone] Encounter Details Date Type Department Care Team (Late st Contact Info) Description 02/24/2019 Hospital Follow-up Call [facility] [address] [place] [address] She Gomez RN Social History [...] documented as of this encounter Care Teams Winding Department Supervisor Relationship Specialty Start Date End Date Low Braxton MD [address] [place] [address] PCP - General INTERNAL MEDICINE 12/08/18 05/11/22 Luis Chen MD [address] - [facility] [address] [place] [id number] PCP - General INTERNAL MEDICINE 05/12/22 documented as of this encounter
== END 2025-03-08 10:57 | disposition home or self-care (01) ==
PROVIDERS: PCP Internal Medicine; Visit Provider Internal Medicine
DX: R06.02 Shortness of breath (principal); R91.8 Other nonspecific abnormal finding of lung field
CPT/HCPCS: 71046

== ENCOUNTER 2025-04-04 08:15 | Outpatient (CLI) | payer MEDICARE, SELFPAY ==
--- OUTSIDE RECORDS SUMMARY | 2025-04-04 08:26 | XMS_ITS | Clinical Summary ---
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 5 Active ALPRAZolam (XANAX) 0.25 mg tablet Take 0.25 mg by mouth 3 times daily as needed for Anxiety. Active Active Problems Problem Noted Date Diagnosed Date Iatrogenic pneumothorax 02/21/2025 Hemochromatosis 02/21/2025 Lung mass 02/21/2025 Gastroesophageal reflux disease 02/21/2025 Erythrocytosis 04/10/2021 Hyperlipidemia 02/20/2019 HTN (hypertension), benign 06/24/2013 Overview (02/21/2025): HBP (high blood pressure) Hypothyroidism (acquired) 06/24/2013 Overview (02/21/2025): Hypothyroidism Encounters Date Type Department Care Team Description 03/28/2025 External Device Data [facility] ABSTRACTION Provider, Abstract 03/28/2025 External Device Data [facility] ABSTRACTION Provider, Abstract 03/28/2025 External Device Data [facility]STRACTION Provider, Abstract 03/14/2025 External Device Data [facility]STRACTION Provider, Abstract 03/02/2025 4:00 PM CDT Telephone Check Up [facility] [address] [place] [id number] Karen Champagne MD 03/01/2025 External Device Data [facility] ABSTRACTION Provider, Abstract 02/28/2025 External Device Data [facility]STRACTION Provider, Abstract 02/21/2025 6:35 AM CDT - 02/22/2025 6:58 PM CDT Hospital Encounter [facility] Med Surg Step [address] [place] [id number] Jim Pantoja MD Bucci, Timothy, MD Ye, Musi, MD 16, [facility], [facility] Iatrogenic pneumothorax Discharge Disposition: Home or Self Care 02/21/2025 Travel 02/20/2025 Telephone [facility] Hematology [facility] [address] [place] [phone] Jim Pantoja MD pathology for appt 02/15/2025 External Device Data [facility] ABSTRACTION Provider, Abstract 02/07/2025 External Device Data [facility] ABSTRACTION Provider, Abstract 01/11/2025 External Device Data [facility] ABSTRACTION Provider, Abstract 01/11/2025 External Device Data [facility] ABSTRACTION Provider, Abstract 01/03/2025 External Device Data [facility]STRACTION Provider, Abstract 01/03/2025 External Device Data [facility] ABSTRACTION Provider, Abstract 01/03/2025 External Device Data [facility] ABSTRACTION Provider, Abstract from Last 3 Months Immunizations Immunization Administration Dates Next Due (ADACEL/BOOSTRIX)(10 YR UP) TDAP VACCINE, 0.5ML, IM 03/04/2024 (AREXVY)(60 YR UP) RSV, WOODY MBINANT, PROTEIN SUBUNIT RSVPREF, ADJUVANT RECONSTITUTED, 0.5 ML, PF 06/10/2023 (PFIZER)(12 YR UP) COVID-19 VACCINE - EMERGENCY USE AUTHORIZATION, MRNA, [id number](PF) 30 MCG/0.3 ML IM SUSP 03/18/2024,03/24/2023 (PREVNAR 20)(6 WKS UP) PNEUM OCOCCAL CONJUGATE VACCINE 20-VALENT (PCV20), POLYSACCHARIDE [id number] CONJUGATE, ADJUVANT 0.5 ML (PF) IM 06/10/2023 (SHINGRIX)(50 YRS UP) ZOSTER VACCINE RECOMBINANT, 0.5 ML, IM 02/24/2020,04/12/2018 (TYPHIM )(2 YRS UP) TYPHOI D CAPSULAR POLYSACCHARIDE VACCINE, 0.5 ML, IM 09/10/2023 (YF-VAX)(9 MOS UP) YELLOW FE QUINCY VACCINE, 0.5 ML, SUBCUT 11/17/2016 Hepatitis A Vaccine 05/25/2017,11/17/2016 INFLUENZA VACCINE HIGH DOSE QUADRIVALENT 65 YR UP PF IM 03/04/2024 INFLUENZA VACCINE QUADRIVALENT ADJ 65 YR UP PF I M 04/12/2018 Influenza Seasonal Unspecified Formulation IM Influenza Vaccine High Dose 65+ Yrs IM 7 Influenza Vaccine Tri Adjuvanted 65+ PF IM 04/12 Family History Relation Name Status Comments Brother Alive Father Mother Son 1 Alive Son 2 Alive Social History Tobacco Use Types Packs/Day Years Used Date Smoking Tobacco: Former Smokeless Tobacco: Never Tobacco Cessation:Counseling Given: Not Answered Comments:quit over 40 yrs ago Alcohol Use Standard Drinks/Week Comments Yes 0 (1 standard drink = 0.6 oz pur e alcohol) Feeling Safe Answer Date Recorded Are you in a relationship wi th someone who hurts you emotionally and/or physically? No 02/21/2025 Food Insecurity Answer Date Recorded Patient needs follow up regardin 02/21/2025 Transportation Needs Answer Date Record ed Patient needs follow up regardin 02/21/2025 Utility Needs Answer Date Recorded Patient needs follow up regardin 02/21/2025 Comments No Sex and Gender Information Value Date Recorded Sex Assigned at Not on file Legal Sex Female 5:17 AM CRYSTALIZER Gender Identity Not on file Sexual Orientation Not on file Last Filed Vital Signs Vital Sign Reading Time Taken Comments Blood Pressure 100/42 02/22/2025 2:58 PM CDT Pulse 56 02/22/2025 2:58 PM CDT Temperature 36.5 C (97.7 F) 02/22/2025 11:46 AM CDT Respiratory Rate 16 02/22/2025 2:58 PM CDT Oxygen Saturation 97% 02/22/2025 2:58 PM CDT Inhaled Oxygen Concentration - - Weight 56.2 kg (124 lb) 02/22/2025 3:00 PM CDT Height 152.4 cm (5') 02/21/2025 6:53 AM CDT Body Mass Index 24.22 02/21/2025 6:53 AM CDT Plan of Treatment Health Maintenance Due Date Last Done Comments OSTEOPOROSIS SCREENING 01/22/2004 INFLUENZA VACCINE (#1) 2025 , 02/20/2023, 04/12/2018, Additional history exists COVID-19 Vaccine ( - 2024-2 6 season) 2025 03/18/2024, 03/24/2023, 07/26/2020 DTAP/TDAP/TD VACCINES (2 - T d or Tdap) 03/04/2034 03/04/2024 ZOSTER VACCINE Completed 02/24/2020, 04/12/2018 PNEUMOCOCCAL VACCINE 50+ YEARS Completed 06/10/2023 RSV VACCINE (60+ or ) Completed 06/10/2023 Procedures Procedure Name Priority Date/Time Associated Diagnosis Comments TELEMETRY REPORT 03/02/2025 7:18 PM CDT TELEMETRY REPORT 02/24/2025 1:10 PM CDT IR TUBE PLACEMENT Routine 02/22/2025 3:2 2 PM CDT XR CHEST PA OR AP 1 VW Routine 02/22/2025 2:10 PM CDT XR CHEST PA OR AP 1 VW Pending Discharge 02/22/2025 8:34 AM CDT BASIC METABOLIC PANEL Routine 02/22/2025 4:12 AM CDT HEMOGLOBIN AND HEMATOCRIT Routine 02/22/2025 4:[address] GUIDED NEEDLE PLACEMENT Pending Discharge 02/21/2025 12:49 PM CDT Lung mass XR CHEST PA OR AP 1 VW Pending Discharge 02/21/2025 11:20 AM CDT PATHOLOGY Pathology 02/21/2025 8:[address] BIOPSY LUNG RIGHT Routine 02/21/2025 8:56 AM CDT Lung mass CBC WITH DIFFERENTIAL Stat 02/21/2025 7:56 AM CDT from Last 3 Months Results * TELEMETRY REPORT (03/02/2025 7:18 PM CDT) Only the most recent of2 resultswithin the time period is included. us Provider Scanning ECG ORDERABLES Final Result * IR TUBE PLACEMENT (02/22/2025 3:22 PM CDT) Narrative 02/22/2025 3:22 PM CDT Order information only. Exam was auto-finalized. us Nick Montoya MD IR ORDERABLES Final Result * XR CHEST PA OR AP 1 VW (02/22/2025 2:10 PM CDT) Only the most recent of3 resultswithin the time period is included. Anatomical Region Laterality Modality Chest Computed Radiogr aphy 02/22/2025 2:10 PM CDT Impressions 02/22/2025 2:31 PM CDT IMPRESSION: No residual right pneumothorax with pleural pigtail catheter in place. Unchanged right upper lobe nodular opacity. DICTATION LOCATION: Location 1 - [facility] Narrative 02/22/2025 2:31 PM CDT PORTABLE AP VIEW OF THE CHEST DATE: 02/22/2025 2:10 PM HISTORY: Pneumothorax. COMPARISON: 02/22/2025 FINDINGS: Atherosclerotic plaque calcifications are seen in the aorta. The heart is at the upper limits of normal in size. The right pleural pigtail catheter is unchanged in position. The right upper lobe nodular opacity is unchanged. There is no consolidation or pleural effusion. No right pneumothorax is seen. There is no left pneumothorax. Procedure Note Melissa Rosen MD - 02/22/2025 PORTABLE AP VIEW OF THE CHEST DATE: 02/22/2025 2:10 PM HISTORY: Pneumothorax. COMPARISON: 02/22/2025 FINDINGS: Atherosclerotic plaque calcifications are seen in the aorta. The heart is at the upper limits of normal in size. The right pleural pigtail catheter is unchanged in position. The right upper lobe nodular opacity is unchanged. There is no consolidation or pleural effusion. No right pneumothorax is seen. There is no left pneumothorax. IMPRESSION: No residual right pneumothorax with pleural pigtail catheter in place. Unchanged right upper lobe nodular opacity. DICTATION LOCATION: Location 1 - [facility] us Nick Montoya MD DIAGNOSTIC IMAGING ORDERABLES Final Result * HEMOGLOBIN AND HEMATOCRIT (02/22/2025 4:12 AM CDT) HEMOGLOBIN 14.2 11.8 - 14.8 g/dL 02/22/2025 5:12 AM CDT [facility] HEMATOCRIT 43.3 35.5 - 44.0 % 02/22/2025 5:12 AM CDT [facility] Blood Venipuncture / Unknown 02/22/2025 4:12 AM CDT 02/22/2025 4:54 AM CDT Max Hernandez MD HEMATOLOGY ORDERABLES Final Res ult [facility] [facility] CLIA# [id number] [address] [place] [address] * (ABNORMAL) BASIC METABOLIC PANEL (02/22/2025 4:12 AM CDT) SODIUM 132(L) 136 - 145 mmol/L 02/22/2025 5:39 AM [facility] POTASSIUM 3.6 3.5 - 5.0 mmol/L 02/22/2025 5:39 AM [facility] CHLORIDE 96(L) 98 - 107 mmol/L 02/22/2025 5:39 AM [facility] CO2 24 22 - 29 mmol/L 02/22/2025 5:39 AM [facility] CALCIUM 8.7 8.6 - 10.2 mg/dL 02/22/2025 5:39 AM [facility] BUN 19 8 - 23 mg/dL 02/22/2025 5:39 AM [facility] CREATININE 0.89 0.51 - 0.95 mg/dL 02/22/2025 5:39 AM [facility] Comment:The GFR result is no t clinically significant on patients <18 or >70 years of age. GLUCOSE 97 74 - 99 mg/dL 02/22/2025 5:39 AM [facility] GFR >60 mL/min/1.7 3 sq meter 02/22/2025 5:39 AM [facility] Comment:eGFR calculated with 2020 CKD-EPI equation. Vegetarian diet, extremely high or low muscle mass, and may affect results. Cystatin C with Glomerular Filtration Rate is a suitable alternative for these patients. ANION GAP 12 8 - 16 mmol/L 02/22/2025 5:39 AM [facility] Blood Venipuncture / Unknown 02/22/2025 4:12 AM CDT 02/22/2025 4:54 AM CDT us Max Hernandez MD CHEMISTRY ORDERABLES Final Resu lt [facility]# [id number] [address] [place] [address] * CT GUIDED NEEDLE PLACEMENT (02/21/2025 12:49 PM CDT) Anatomical Region Laterality Modality Computed Tomogra phy 02/21/2025 12:3 5 PM CDT Impressions 02/21/2025 1:06 PM CDT IMPRESSION: Successful CT-guided right chest tube placement. Narrative 02/21/2025 1:06 PM CDT PROCEDURE/EXAM(S): 1. RIGHT CHEST TUBE PLACEMENT. 2. CT GUIDANCE. TIME/DATE: 02/21/2025 12:49 PM. DICTATION LOCATION: Location 1 - [facility] PHYSICIANS: Nick Montoya MD. CLINICAL INFORMATION/INDICATION: Female of 85 years age with pneumothorax presents for chest tube placement. CONSENT: The indications, procedures, benefits, and risks (including but not limited to infection, organ damage, and life-threatening bleeding) were discussed and informed consent was obtained for the medical record per protocol. SEDATION: None. TECHNIQUE/FINDINGS: Patient identification and preprocedural timeout was performed per protocol. Maximum sterile technique was utilized for all aspects of the procedure. CT imaging of the targeted collection/space was performed with adjustment of mA according to patient size and/or iterative reconstruction technique. CT image(s) before drainage catheter placement showed a safe path to the targeted collection/space. The overlying subcutaneous tissues were infiltrated with local anesthetic and the right pleural space was accessed with a [address] guidance. The tract was dilated over a guidewire and a 12 Fr chest tube was placed and secured with the retention loop. Drainage yielded gas. CT imaging after chest tube placement showed drainage catheter well positioned at the targeted location. The catheter was secured to the skin with suture and connected to a Pleur-evac device. At the end of the procedure, a sterile dressing was applied. The patient tolerated the procedure well. ESTIMATED BLOOD LOSS: < 5 cc. COMPLICATIONS: None. Procedure Note Nick Montoya MD - 02/21/2025 PROCEDURE/EXAM(S): 1. RIGHT CHEST TUBE PLACEMENT. 2. CT GUIDANCE. TIME/DATE: 02/21/2025 12:49 PM. DICTATION LOCATION: Location 1 - [facility] PHYSICIANS: Nick Montoya MD. CLINICAL INFORMATION/INDICATION: Female of 85 years age with pneumothorax presents for chest tube placement. CONSENT: The indications, procedures, benefits, and risks (including but not limited to infection, organ damage, and life-threatening bleeding) were discussed and informed consent was obtained for the medical record per protocol. SEDATION: None. TECHNIQUE/FINDINGS: Patient identification and preprocedural timeout was performed per protocol. Maximum sterile technique was utilized for all aspects of the procedure. CT imaging of the targeted collection/space was performed with adjustment of mA according to patient size and/or iterative reconstruction technique. CT image(s) before drainage catheter placement showed a safe path to the targeted collection/space. The overlying subcutaneous tissues were infiltrated with local anesthetic and the right pleural space was accessed with a [address] guidance. The tract was dilated over a guidewire and a 12 Fr chest tube was placed and secured with the retention loop. Drainage yielded gas. CT imaging after chest tube placement showed drainage catheter well positioned at the targeted location. The catheter was secured to the skin with suture and connected to a Pleur-evac device. At the end of the procedure, a sterile dressing was applied. The patient tolerated the procedure well. ESTIMATED BLOOD LOSS: < 5 cc. COMPLICATIONS: None. IMPRESSION: Successful CT-guided right chest tube placement. Nick Montoya MD CT ORDERABLES Final Result * PATHOLOGY (02/21/2025 8:57 AM CDT) CASE REPORT Surgical Pathology Report Case: [id number] Authorizing Provider: Nick Montoya MD Collected: 02/21/2025 08:57 AM Ordering Location: [facility] Received: 02/21/2025 02:10 PM [place] Pathologist: Sunny Resendiz MD Specimen: Lung, RUL, Lung mass 11:37 AM CDT [facility] FINAL DIAGNOSIS Lung, right upper lobe mass, biopsy: - Atypical type II pneumocyte proliferation. See microscopic description. 11:37 AM T [facility] at 1137 CDT GROSS DESCRIPTION Received in one container labeled Sherrie Castillo Pedro and RUL lung mass are 3 semitranslucent white-pink tissue cores measuring 1.2, 0.9 and 1.9 cm in length and each measuring less than 0.1 cm in diameter. All are submitted in cassettes A1 and A2. [facility] 11:37 AM T [facility] MICROSCOPIC DESCRIPTION The slides are labeled [id number] and Pedro, Sherrie. Sections of the right upper lobe lung mass biopsy reveal small fragments of alveolated lung parenchyma. A focal proliferation of pneumocytes with mild to moderate atypia is present. The atypical cells exhibit nuclear enlargement, visible nucleoli, and moderate eosinophilic cytoplasm. No complex architectural patterns or definitive invasive growth are identified. The background shows increased intra-alveolar pigmented macrophages, fibrosis, and chronic inflammation with scattered eosinophils. Findings raise the differential of adenocarcinoma in situ (lepidic growth pattern) versus reactive type II pneumocyte hyperplasia in the setting of fibrosis and chronic inflammation. The absence of definite invasive features on this limited biopsy precludes a definitive diagnosis of adenocarcinoma. Clinical and radiographic correlation is recommended. Additional levels were examined. This case was reviewed in intradepartmental consultation. 11:37 AM T [facility] CLINICAL INFORMATION Lung mass No Dx found. 11:37 AM [facility] COMMENT Special stain, immunohistochemical, and/or in situ hybridization results are interpreted with controls that demonstrate appropriate staining reactions. Note on use of immunohistochemistry reagents and in situ hybridization probes: These tests were developed and their performance characteristics determined by [facility], Department of Laboratory Medicine. It has not been cleared or approved by the U.S. Food and Drug Administration. The FDA has determined that such clearance or approval is not necessary. The test is used for clinical purposes. It should not be regarded as investigational or for research. This laboratory is certified to perform high complexity testing. Frozen section/operating room consultation, gross examination and dissection, and case sign out may have been performed in part or completely in the following laboratories: [facility], CLIA #[id number] [address] [facility], [place] [address] [facility], CLIA #[id number] [address] [place] [address] [facility], CLIA #[id number] [address] [facility] [address] [place] [address] This report was created with the [employer] voice-activated dictation system. Inherent to this system is the possibility of syntax, grammar, punctuation and other errors that could impact the interpretation of the report. If there are interpretative questions about aspects of this report, please contact the performing pathologist. 11:37 AM CDT [facility] Tissue (Lung, RUL) Collection / Unknown 02/21/2025 8:57 AM CDT 02/21/2025 2:10 PM CDT Comment:Lung mass Nick Montoya MD PATHOLOGY/CYTOLOGY ORDERABLES Final Result [id number] [address] [place] [address] * CT BIOPSY LUNG RIGHT (02/21/2025 8:56 AM CDT) Anatomical Region Laterality Modality Chest Computed Tomogra phy 02/21/2025 8:42 AM CDT Impressions 02/21/2025 10:01 AM CDT IMPRESSION: Successful CT-guided right lung lesion biopsy. PLAN/RECOMMENDATIONS: Patient was advised to follow-up with the referring physician for sampling results. Narrative 02/21/2025 10:01 AM CDT PROCEDURE/EXAM(S): 1. LUNG LESION BIOPSY. 2. CT GUIDANCE. TIME/DATE: 02/21/2025 8:56 AM. DICTATION LOCATION: Location 1 - [facility] PHYSICIANS: Nick Montoya MD. CLINICAL INFORMATION/INDICATION: Female of 85 years age with lung mass presents for lung lesion biopsy. CONSENT: The indications, procedures, benefits, and risks (including but not limited to infection, organ damage, life-threatening bleeding, and pneumothorax) were discussed and informed consent was obtained for the medical record per protocol. SEDATION: None. TECHNIQUE/FINDINGS: Patient identification and preprocedural timeout was performed per protocol. Maximum sterile technique was utilized for all aspects of the procedure. CT imaging of the targeted lesion was performed with adjustment of mA according to patient size and/or iterative reconstruction technique. CT image(s) before biopsy showed a safe biopsy path to the targeted lesion. The overlying subcutaneous tissues were infiltrated with local anesthetic and the right lung lung lesion was accessed with a 20 gauge biopsy device compatible trocar using CT guidance. CT image(s) showed the biopsy trocar well positioned at the targeted site. Four biopsy core(s) of the targeted lesion were obtained using coaxial technique. At the end of the procedure, the devices were removed and a sterile dressing was applied. The patient tolerated the procedure well. ESTIMATED BLOOD LOSS: < 5 cc. COMPLICATIONS: None. Procedure Note Nick Montoya MD - 02/21/2025 PROCEDURE/EXAM(S): 1. LUNG LESION BIOPSY. 2. CT GUIDANCE. TIME/DATE: 02/21/2025 8:56 AM. DICTATION LOCATION: Location 1 - [facility] PHYSICIANS: Nick Montoya MD. CLINICAL INFORMATION/INDICATION: Female of 85 years age with lung mass presents for lung lesion biopsy. CONSENT: The indications, procedures, benefits, and risks (including but not limited to infection, organ damage, life-threatening bleeding, and pneumothorax) were discussed and informed consent was obtained for the medical record per protocol. SEDATION: None. TECHNIQUE/FINDINGS: Patient identification and preprocedural timeout was performed per protocol. Maximum sterile technique was utilized for all aspects of the procedure. CT imaging of the targeted lesion was performed with adjustment of mA according to patient size and/or iterative reconstruction technique. CT image(s) before biopsy showed a safe biopsy path to the targeted lesion. The overlying subcutaneous tissues were infiltrated with local anesthetic and the right lung lung lesion was accessed with a 20 gauge biopsy device compatible trocar using CT guidance. CT image(s) showed the biopsy trocar well positioned at the targeted site. Four biopsy core(s) of the targeted lesion were obtained using coaxial technique. At the end of the procedure, the devices were removed and a sterile dressing was applied. The patient tolerated the procedure well. ESTIMATED BLOOD LOSS: < 5 cc. COMPLICATIONS: None. IMPRESSION: Successful CT-guided right lung lesion biopsy. PLAN/RECOMMENDATIONS: Patient was advised to follow-up with the referring physician for sampling results. Jim Pantoja MD CT ORDERABLES Final Result * (ABNORMAL) CBC WITH DIFFERENTIAL (02/21/2025 7:56 AM CDT) WBC 8.6 4.0 - 9.8 K/uL 02/21/2025 8:14 AM CDT [facility] RBC 5.90(H) 3.90 - 4.90 M/uL 02/21/2025 8:14 AM CDT [facility] HEMOGLOBIN 15.5(H) 11.8 - 14.8 g/dL 02/21/2025 8:14 AM CDT [facility] HEMATOCRIT 47.4(H) 35.5 - 44.0 % 02/21/2025 8:14 AM CDT [facility] MCV 80.3(L) 82.0 - 99.0 fL 02/21/2025 8:14 AM CDT [employer] [facility] - [facility] MCH 26.3(L) 27.2 - 32.6 pg 02/21/2025 8:14 AM CDT [facility] MCHC 32.7 31.5 - 35.5 g/dL 02/21/2025 8:14 AM CDT [facility] RDW 16.4(H) 11.5 - 14.5 % 02/21/2025 8:14 AM CDT [employer] - [facility] RDW-STDEV 46.1 37.1 - 48.7 fL 02/21/2025 8:14 AM CDT [facility] PLATELETS 313 140 - 350 K/uL 02/21/2025 8:14 AM CDT [facility] MPV 11.3 9.3 - 12.4 fL 02/21/2025 8:14 AM CDT [facility] NEUTROPHILS 68 % 02/21/2025 8:14 AM CDT [facility] LYMPHOCYTES 20 % 02/21/2025 8:14 AM CDT [employer] MONOCYTES 8 % 02/21/2025 8:14 AM CDT [facility] EOSINOPHILS 3 % 02/21/2025 8:14 AM CDT [facility] BASOPHILS 1 % 02/21/2025 8:14 AM CDT [employer] IMMATURE GRANULOCYTES 0 % 02/21/2025 8:14 AM CDT [facility] NEUTROPHIL ABSOLUTE 5.87 1.90 - 7.00 K/uL 02/21/2025 8:14 AM CDT [employer] LYMPHOCYTE ABSOLUTE 1.68 0.70 - 4.50 K/uL 02/21/2025 8:14 AM CDT [facility] MONOCYTE ABSOLUTE 0.67 0.10 - 1.30 K/uL 02/21/2025 8:14 AM CDT [employer] LABORATORY SERVICES - [facility] EOSINOPHIL ABSOLUTE 0.23 0.00 - 0.70 K/uL 02/21/2025 8:14 AM CDT [employer] [employer] LABORATORY SERVICES - [facility] BASOPHILS ABSOLUTE 0.09 0.00 - 0.20 K/uL 02/21/2025 8:14 AM CDT [place] [employer] LABORATORY SERVICES - [facility] IMMATURE GRANULOCYTES ABSOLUTE 0.03 0.00 - 0.03 K/uL 02/21/2025 8:14 AM CDT [place] [employer] LAB[facility]ATORY SERVICES - [facility] Blood Venipuncture / Unknown 02/21/2025 7:56 AM CDT 02/21/2025 8:06 AM CDT us Anna Ahmet ADORNO HEMATOLOGY ORDERABLES Final Resu lt [employer] LABORATORY SERVICES - [facility] CLIA# [id number] 5 [facility] [place] [address] from Last 3 Months Insurance MEDICARE PART A AND B AETNA MEDICARE SUPP AESSI MEDICARE PART A AND B AET MEDICARE SUPP AESSI Advance Directives For more information, please contact: [phone] * Full Code (Latest Code Status on File) Date Activated Date Inactivated Comments 02/21/2025 5:31 PM 02/22/2025 9:03 PM Care Teams Rubber Vulcanizing Machine Operator Relationship Specialty Start Date End Date Luis Chen MD [address] [place] [address] PCP - General Internal Medicine 07/23/22
--- OUTSIDE RECORDS SUMMARY | 2025-04-04 08:26 | XMS_ITS | Encounter Summary ---
Author Organization [facility] Address [address] 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
--- OUTSIDE RECORDS SUMMARY | 2025-04-04 08:26 | XMS_ITS | Clinical Summary ---
Author Organization [facility] Address [address] [place] [address] Care Team Providers Care Developer Prover Upholstering Name Role Phone Luis Chen MD Primary Care Provider [phone] Allergies Active Allergy Reactions Criticality Noted Date [...] 11/09/2020 Assessment & Plan (05/06/2021 8:53 AM BUTTON SEWER): Patient continues on primidone 50 mg HS [...] on file Legal Sex Female 3:06 AM BUTTON SEWER Gender Identity Female 11/07/2020 11:55 AM CDT [...] Visit 65+ 01/22/2004 Covid-19 Vaccine ( season) 02/27/202507/2020, 07/26/2020 Influenza Vaccine (#1) 2025 9, 04/12/2018, 05/25/2017 Zoster Vaccine Completed 02/24/2020, 04/12/2018 Insurance AETNA SENIOR SUPPLEMENT MEDICARE MEDICARE AETNA SENIOR SUPPLEMENT MEDICARE AETNA SENIOR SUPPLEMENT Care Teams Developer Prover Upholstering Relationship Specialty Start Date End Date Luis Chen MD PCP - General Internal Medicine 10/28/24
--- OUTSIDE RECORDS SUMMARY | 2025-04-04 08:26 | XMS_ITS | Encounter Summary ---
Author Organization [facility] Address [address] [facility] [address] 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
[2025-04-04 08:38] LABS: Hematocrit 51.1 % (37.0-47.0); Hemoglobin 16.3 g/dL (12.0-15.0); Immature Granulocyte Percent A 0.4 % (0-0.5); Lymphocytes Absolute Auto 1.98 K/mm3 (0.9-3.2); Mean Corpuscular HGB Conc 31.9 g/dl (32-36); Mean Corpuscular Hemoglobin 27.1 pg (26-34); Mean Corpuscular Volume 84.9 fl (80-100); Nucleated Red Blood Cells Absolute Auto 0.000 K/mm3 (0.0-0.012); Nucleated Red Blood Cells Perc 0.0 % (0.0-0.2); Platelet Count Result 282 k/mm3 (150-375); Red Blood Count 6.02 M/mm3 (4.2-5.4); White Blood Count 8.2 K/mm3 (4.5-10.0)
[2025-04-04 08:49] LABS: Hemoglobin A1C 5.8 % (<5.7)
[2025-04-04 09:00] LABS: Alanine Aminotransferase 17 U/L (6-35); Albumin Level 4.0 g/dL (3.5-5.1); Alkaline Phosphatase 141 U/L (38-126); Anion Gap 4 mmol/L (4-12); Aspartate Amino Transferase 35 U/L (14-36); Bilirubin,Total 1.2 mg/dL (0.2-1.3); Blood Urea Nitrogen 18 mg/dL (7-17); Calcium 9.0 mg/dL (8.4-10.2); Carbon Dioxide 31 mmol/L (22-30); Chloride 98 mmol/L (98-107); Cholesterol 158 mg/dL (0-200); Estimated Glomerular Filt Rate 56; Glucose 100 mg/dL (65-110); HDL Direct 48 mg/dL; Potassium 4.0 mmol/L (3.4-5.0); Sodium 133 mmol/L (137-145); Total Protein 6.6 g/dL (6.3-8.2); Triglycerides 102 mg/dL (<150)
[2025-04-04 09:15] LABS: Free T4 Free Thyroxine 1.79 ng/dL (0.78-2.19)
[2025-04-04 09:36] LABS: Thyroid Stimulating Hormone 24.400 uIU/mL (0.465-4.680)
== END 2025-04-04 08:16 | disposition home or self-care (01) ==
PROVIDERS: PCP Internal Medicine; Visit Provider Internal Medicine
DX: Z79.899 Other long term (current) drug therapy (principal); Z13.29 Encounter for screening for other suspected endocrine disorder; Z13.1 Encounter for screening for diabetes mellitus; I10 Essential (primary) hypertension; E78.5 Hyperlipidemia, unspecified
CPT/HCPCS: 36415; 80053; 80061; 83036; 84439; 84443; 85025

== ENCOUNTER 2025-05-23 09:02 | Outpatient (CLI) | payer MEDICARE, SELFPAY ==
--- NOTE | ~2025-05-23 | PE_ITS ---
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 10.327 mCi of 18-fluorodeoxyglucose (18-FDG) was administered i.v. Low dose computed tomography (CT) images were acquired from the base of the brain to the proximal thighs for attenuation correction and anatomic localization. Positron emission tomography (PET) images were acquired in the same distribution beginning 55 minutes after injection. Images including fused PET/CT images were reconstructed in axial, coronal, and sagittal planes. Automated exposure control technique was employed. The dose- length product was 605.11mGy-cm. COMPARISON: PET/CT dated 12/13/[address] dated 01/27/2025 FINDINGS: Head/neck: There is symmetric increased activity in the oral cavity, palatine tonsils, laryngeal muscles and ocular muscles without CT correlate, likely physiologic. No pathologically enlarged cervical lymphadenopathy or suspicious foci of increased FDG uptake in the visualized head or neck. Chest: No interval change in FDG avid 3.2 x 1.8 cm subsolid nodule with both groundglass and more dense solid component is better appreciated on intervening chest CT dated 01/27/25. Opacity in the right upper lobe with maximal SUV of 6.7. Again seen are calcified nodules in the right middle lobe along with calcified right hilar and mediastinal lymph nodes consistent with old granulomatous disease. No other suspicious pulmonary nodules, pulmonary edema, other pulmonary infiltrates or pleural effusion. Heart size is normal. Atherosclerotic coronary artery calcification. Thoracic aorta is normal in caliber. No pathologically enlarged or FDG avid thoracic lymphadenopathy. Abdomen/pelvis/proximal thighs: Physiologic renal accumulation and excretion of FDG activity in the kidneys, bladder and along portions of ureters. Normal degree and heterogenous pattern of increased uptake throughout the liver without radiologic correlate or dominant FDG avid lesion. No significant change in a few small hypodense hepatic cysts without FDG activity near the gallbladder fossa which are better visualized on earlier contrast-enhanced CT dated 09/16/2024. Again seen are small calcified gallstones at the dependent neck of the otherwise normal-appearing gallbladder. The pancreas, spleen and bilateral adrenal glands are normal. Mild uptake scattered throughout the bowels without radiologic correlate, also likely physiologic. Mild diverticulosis along the sigmoid colon without adjacent from trace stranding to suggest diverticulitis. The uterus is not identified and has likely been surgically resected. No change in numerous heterotopic ossicles the subcutaneous tissues overlying the bilateral buttocks most likely related to either fat necrosis or injection granulomata. No other abnormal foci of increased FDG uptake or pathologically enlarged lymphadenopathy in the abdomen, pelvis or proximal thighs. Musculoskeletal: Again seen is mild likely degenerative joint centered uptake at the left sternoclavicular joint and to lesser degree at the bilateral shoulders. There is likely physiologic increased uptake slightly muscles at the bilateral hands and forearms. Small foci of more prominent uptake at the right hand and wrist likely related to extravasation at the site of radiopharmaceutical injection. 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 No suspicious lytic, blastic or abnormally FDG avid bone lesions. IMPRESSION: 1. 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 Depending on how this would affect anticipated clinical management would consider CT-guided biopsy for definitive determination. 2. Cholelithiasis. Reviewed, dictated and finalized at location A. [facility] IMPRESSION: 1. 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 Depending on how this would affect anticipated clinical managem ent would consider CT-guided biopsy for definitive determination. 2. Cholelithiasis.
--- OUTSIDE RECORDS SUMMARY | 2025-05-23 09:42 | XMS_ITS | Clinical Summary ---
Author Organization [facility] Address [address] [place] [address] Phone Care Team Providers Care Outside Plant Technician Name Role Phone Luis Chen MD Primary Care Provider [phone] Shashank Munoz MD Unavailable [phone] Allergies Active Allergy Reactions Criticality Noted Date Comments Sulfa Antibiotics Other (see Comments) 04/26/20 25 Medications ALPRAZolam (XANAX) 0.25 MG Tablet Take by mouth. 01/31/2025 Active atorvastatin (LIPITOR) 80 MG Tablet Take 80 mg by mouth daily. Active cholecalciferol (Vitamin D3) 125 mcg Capsule Take 125 mcg by mouth. Active escitalopram (LEXAPRO) 10 MG Tablet Take 10 mg by mouth daily. Active pantoprazole (PROTONIX) 40 MG Tablet Delayed Response Take 40 mg by mouth. 07/09/2020 Active propranolol (INDERAL LA) 120 MG CAPSULE SR 24 HR Take 120 mg by mouth. 03/03/2025 Active Valsartan 320 MG Tablet Take 320 mg by mouth. 06/09/2022 Active ALBUTEROL SULFATE PO Take by mouth. Active Active Problems No known active problems Encounters Date Type Department Care Team Description 04/26/2025 11:00 AM CDT Office Visit [facility] [address] [address] Shashank Munoz MD NSCLC of right lung (Primary Dx) 04/26/2025 Travel from Last 3 Months Family History Medical History Relation Name Comments Prostate Cancer Brother Cancer Father Heart Disease Father Heart Disease Mother Relation Name Status Comments Brother Father Mother Social History Tobacco Use Types Packs/Day Years Used Date Smoking Tobacco: Former Cigarettes 0 Q uit: 1994 Smokeless Tobacco: Never Tobacco Cessation:Counseling Given: Not Answered Alcohol Use Standard Drinks/Week Comments Yes 0 (1 standard drink = 0.6 oz pur e alcohol) social Comments Unknown Sex and Gender Information Value Date Recorded Sex Assigned at Not on file Legal Sex Female 11:42 AM CDT Gender Identity Not on file Sexual Orientation Not on file Last Filed Vital Signs Vital Sign Reading Time Taken Comments Blood Pressure 145/85 04/26/2025 11:11 AM CDT Pulse 78 04/26/2025 11:11 AM CDT Temperature 36.7 C (98 F) 04/26/2025 11:11 AM CDT Respiratory Rate - - Oxygen Saturation 96% 04/26/2025 11:11 AM CDT Inhaled Oxygen Concentration - - Weight 57 kg (125 lb 11.2 oz) 04/26/2025 11:11 A M CDT Height 152.4 cm (5') 04/26/2025 11:11 AM CDT Body Mass Index 24.55 04/26/2025 11:11 AM CDT Plan of Treatment Health Maintenance Due Date Last Done Comments DEXA Bone Density 1940 Hepatitis C Virus (HCV) Screening 1940 Medicare Initial AWV [id number] 12/27/2004 Influenza Immunization (#1) 2025 09/0 11/2023, 02/20/2023, 03/13/2022, Additional history exists SARS-COV-2 Immunization ( season) 2025 03/18/2024, 03/24/2023, 03/13/2022, Additional history exists Zoster Immunization Completed 02/24/2020, 8 Pneumococcal Immunization (50+ years) Completed 06/10/2023 Respiratory Syncytial Virus (RSV) Immunization (Adult) Completed 06/10/2023 TdaP Immunization Completed 03/04/2024 Hepatitis B Immunization Aged Out No longer eligible based on patient's age to complete this topic Human Papillomavirus (HPV) Immunization Aged Out No longer eligible based on patient's age to complete this topic Meningococcal Immunization (ACWY) Aged Out No longer eligible based on patient's age to complete this topic Rotavirus Immunization Aged Out No lo nger eligible based on patient's age to complete this topic Insurance AETNA [facility] MEDICARE Care Teams Outside Plant Technician Relationship Specialty Start Date End Date Luis Chen MD [address] [place] [address] PCP - General Internal Medicine 04/18/25 Shashank Munoz MD [address] [place] [address] Consulting Physician Oncology 04/18/25
--- OUTSIDE RECORDS SUMMARY | 2025-05-23 09:42 | XMS_ITS | Encounter Summary ---
Author Organization [facility] Address [address] [facility] Attn: Epic Prelude ADT [place] [address] Care Team Providers Care Associate Professor Of Mathematics Name Role Phone Luis Chen MD Primary Care Provider + Encounter Details Date Type Department Care Team (Late st Contact Info) Description 01/23/1995 [place] [address] [address] Social History Tobacco Use Types Packs/Day Years Used Date Smoking Tobacco: Never Assessed Comments Unknown Sex and Gender Information Value Date Recorded Sex Assigned at Not on file Legal Sex Female 5:17 AM RN ANESTHESIOLOGY Gender Identity Not on file Sexual Orientation Not on file documented as of this encounter Plan of Treatment Not on file documented as of this encounter Visit Diagnoses Not on filedocumented in this encounter Care Teams Associate Professor Of Mathematics Relationship Specialty Start Date End Date Luis Chen MD [address] [place] [address] PCP - General Internal Medicine 07/23/22 documented as of this encounter
--- OUTSIDE RECORDS SUMMARY | 2025-05-23 09:42 | XMS_ITS | Encounter Summary ---
Author Organization [facility] Address [address] [facility] Attn: Epic Prelude ADT [place] [address] Care Team Providers Care Test Bore Helper Name Role Phone Luis Chen MD Primary Care Provider + Encounter Details Date Type Department Care Team (Late st Contact Info) Description 09/28/1999 Outpatient Historical Social History Tobacco Use Types Packs/Day Years Used Date Smoking Tobacco: Never Assessed Comments Unknown Sex and Gender Information Value Date Recorded Sex Assigned at Not on file Legal Sex Female 5:17 AM OPTOMETRIC ASSISTANT Gender Identity Not on file Sexual Orientation Not on file documented as of this encounter Plan of Treatment Not on file documented as of this encounter Visit Diagnoses Not on filedocumented in this encounter Care Teams Test Bore Helper Relationship Specialty Start Date End Date Luis Chen MD [address] [place] [address] PCP - General Internal Medicine 07/23/22 documented as of this encounter
--- OUTSIDE RECORDS SUMMARY | 2025-05-23 09:42 | XMS_ITS | Clinical Summary ---
Author Organization [facility] [employer] Address [address] [place] [address] Care Team Providers Care Children'S Service Supervisor Name Role Phone Luis Chen MD [...] Encounters Date Type Department Care Team Description 05/03/2025 External Device Data [facility] ABSTRACTION Provider, Abstract 05/02/2025 External Device Data [facility] ABSTRACTION Provider, Abstract 03/28/2025 External Device Data [facility] ABSTRACTION Provider, Abstract 03/28/2025 External Device Data [facility] ABSTRACTION Provider, Abstract 03/28/2025 External Device Data [facility] ABSTRACTION Provider, Abstract 03/14/2025 External Device Data [facility] ABSTRACTION Provider, Abstract 03/02/2025 4:00 PM CDT Telephone Check Up [facility] [address] [place] [address] Karen Champagne MD 03/01/2025 External Device Data [facility] ABSTRACTION Provider, Abstract 02/28/2025 External Device Data [facility] ABSTRACTION Provider, Abstract 02/21/2025 6:35 AM CDT - 02/22/2025 6:58 PM CDT Hospital Encounter [facility] Med Surg Step Down [facility] [address] [place] [address] Jim Pantoja MD Bucci, Timothy, MD Ye, Musi, MD [address] [facility] [address] Iatrogenic pneumothorax Discharge Disposition: Home or Self Care 02/21/2025 Travel 02/20/2025 Telephone [facility] H[facility]ology [facility] [address] [place] [address] Jim Pantoja MD pathology for appt from Last 3 Months Immunizations Immunization Administration Dates Next Due (ADACEL/BOOSTRIX)(10 YR UP) TDAP VACCINE, 0.5ML, IM 03/04/2024 (AREXVY)(60 YR UP) RSV, WOODY MBINANT, PROTEIN SUBUNIT RSVPREF, ADJUVANT RECONSTITUTED, 0.5 ML, PF 06/10/2023 (PFIZER)(12 YR UP) COVID-19 VACCINE - EMERGENCY USE AUTHORIZATION, MRNA, [id number](PF) 30 MCG/0.3 ML IM SUSP 03/18/2024,03/24/2023 (PREVNAR 20)(6 WKS UP) PNEUM OCOCCAL CONJUGATE VACCINE 20-VALENT (PCV20), POLYSACCHARIDE [id number] CONJUGATE, ADJUVANT 0.5 ML (PF) IM 06/10/2023 [...] on file Legal Sex Female 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 DICTATION LOCATION: Location 1 - [facility] Narrative 02/22/2025 2:31 PM CDT PORTABLE AP [...] nodular opacity. DICTATION LOCATION: Location 1 - [facility] us Nick Montoya MD DIAGNOSTIC IMAGING ORDERABLES Final Result * HEMOGLOBIN AND HEMATOCRIT (02/22/2025 4:12 AM CDT) HEMOGLOBIN 14.2 11.8 - 14.8 g/dL 02/22/2025 5:12 AM CDT [facility] HEMATOCRIT 43.3 35.5 - 44.0 % 02/22/2025 5:12 AM CDT [facility] Blood Venipuncture / Unknown 02/22/2025 4:12 AM CDT 02/22/2025 4:54 AM CDT us Max Hernandez MD HEMATOLOGY ORDERABLES Final Res ult [facility]# [id number] [address] [place] [address] * (ABNORMAL) BASIC METABOLIC PANEL (02/22/2025 4:12 AM CDT) SODIUM 132(L) 136 - 145 mmol/L 02/22/2025 5:39 AM T [facility] LABORATORY SERVICES - [facility] POTASSIUM 3.6 3.5 - 5.0 mmol/L 02/22/2025 5:39 AM [facility] [employer] SERVICES - [facility] CHLORIDE 96(L) 98 - 107 mmol/L 02/22/2025 5:39 AM T [facility] LABORATORY SERVICES - . [facility] CO2 24 22 - 29 mmol/L 02/22/2025 5:39 AM [facility] CALCIUM 8.7 8.6 - 10.2 mg/dL 02/22/2025 5:39 AM T [employer] SERVICES - . [facility] BUN 19 8 - 23 mg/dL 02/22/2025 5:39 AM [facility] CREATININE 0.89 0.51 - 0.95 mg/dL 02/22/2025 5:39 AM [facility] [employer] [facility] Comment:The GFR result is no t clinically significant on patients <18 or >70 years of age. GLUCOSE 97 74 - 99 mg/dL 02/22/2025 5:39 AM [facility] [employer] [facility] GFR >60 mL/min/1.7 3 sq meter 02/22/2025 5:39 AM [facility] [employer] [facility] Comment:eGFR calculated with 2020 CKD-EPI equation. Vegetarian diet, extremely high or low muscle mass, and may affect results. Cystatin C with Glomerular Filtration Rate is a suitable alternative for these patients. ANION GAP 12 8 - 16 mmol/L 02/22/2025 5:39 AM T [employer] SERVICES [facility] Blood Venipuncture / Unknown 02/22/2025 4:12 AM CDT 02/22/2025 4:54 AM CDT us Max Hernandez MD CHEMISTRY ORDERABLES Final Resu lt [facility] [employer] [facility] CLIA# [id number] [address] [place] [address] * CT GUIDED NEEDLE PLACEMENT (02/21/2025 12:49 PM CDT) Anatomical Region Laterality Modality Computed Tomogra phy 02/21/2025 12:3 5 PM CDT Impressions 02/21/2025 1:06 PM CDT IMPRESSION: Successful CT-guided right chest tube placement. Narrative 02/21/2025 1:06 PM CDT PROCEDURE/EXAM(S): 1. RIGHT CHEST TUBE PLACEMENT. 2. CT GUIDANCE. TIME/DATE: 02/21/2025 12:49 PM. DICTATION LOCATION: Location [address] [place] [address] PHYSICIANS: Nick Montoya MD. CLINICAL INFORMATION/INDICATION: Female [...] TIME/DATE: 02/21/2025 12:49 PM. DICTATION LOCATION: Location [address] [place] [address] PHYSICIANS: Nick Montoya MD. CLINICAL INFORMATION/INDICATION: Female [...] CDT) CASE REPORT Surgical Pathology Report Case: [id number] Authorizing Provider: Nick Montoya MD Collected: 02/21/2025 08:57 AM Ordering Location: [facility] Received: 02/21/2025 02:10 PM Nicholas Pathologist: Sunny Resendiz MD Specimen: Lung, RUL, Lung mass 11:37 AM CDT [facility] LABORATORY SERVICES [facility] FINAL DIAGNOSIS Lung, right upper lobe mass, biopsy: - Atypical type II pneumocyte proliferation. See microscopic description. 11:37 AM CDT [facility] LABORATORY SERVICES [facility] at 1137 CDT GROSS DESCRIPTION Received in one container labeled Sherrie Anna Vasquez and RUL lung mass are 3 semitranslucent white-pink tissue cores measuring 1.2, 0.9 and 1.9 cm in length and each measuring less than 0.1 cm in diameter. All are submitted in cassettes A1 and A2. [facility] 5 11:37 AM [facility] MICROSCOPIC DESCRIPTION The slides are labeled [id number] and Sherrie Vasquez. Sections of the right upper lobe lung [...] This case was reviewed in intradepartmental consultation. 5 11:37 AM [facility] CLINICAL INFORMATION Lung mass No Dx found. 5 11:37 AM [facility] COMMENT Special stain, immunohistochemical, and/or in situ hybridization results are interpreted with controls that demonstrate appropriate staining reactions. Note on use of immunohistochemistry reagents and in situ hybridization probes: These tests were developed and their performance characteristics determined by [facility], Department of Laboratory Medicine. It has not [...] part or completely in the following laboratories: [facility], CLIA #[id number] [address] [place] [address] , CLIA #[id number] [address] [place] [address] [facility], CLIA #[id number] [address] [place] [address] This report was created with the [employer] voice-activated dictation system. Inherent to this system is the possibility of syntax, grammar, punctuation and other errors that could impact the interpretation of the report. If there are interpretative questions about aspects of this report, please contact the performing pathologist. 11:37 AM CDT [facility] Tissue (Lung, RUL) Collection / Unknown 02/21/2025 8:57 AM CDT 02/21/2025 2:10 PM CDT Comment:Lung mass us Nick Montoya MD PATHOLOGY/CYTOLOGY ORDERABLES Final Result [facility] CLIA# [id number] [address] [place] [address] * CT BIOPSY LUNG RIGHT (02/21/2025 8:56 [...] 8:56 AM. DICTATION LOCATION: Location 1 - [facility] PHYSICIANS: Nick Montoya MD. CLINICAL INFORMATION/INDICATION: Female [...] 8:56 AM. DICTATION LOCATION: Location 1 - [facility] PHYSICIANS: Nick Montoya MD. CLINICAL INFORMATION/INDICATION: Female [...] CBC WITH DIFFERENTIAL (02/21/2025 7:56 AM CDT) [facility] WBC 8.6 4.0 - 9.8 K/uL 02/21/2025 8:14 AM CDT [facility] LABORATORY SERVICES - [facility] RBC 5.90(H) 3.90 - 4.90 M/uL 02/21/2025 8:14 AM CDT [facility] LABORATORY SERVICES - [facility] HEMOGLOBIN 15.5(H) 11.8 - 14.8 g/dL 02/21/2025 8:14 AM CDT [facility] LABORATORY SERVICES - [facility] HEMATOCRIT 47.4(H) 35.5 - 44.0 % 02/21/2025 8:14 AM CDT [facility] LABORATORY SERVICES - [facility] MCV 80.3(L) 82.0 - 99.0 fL 02/21/2025 8:14 AM CDT [facility] LABORATORY SERVICES - [facility] MCH 26.3(L) 27.2 - 32.6 pg 02/21/2025 8:14 AM CDT [facility] LABORATORY SERVICES - [facility] MCHC 32.7 31.5 - 35.5 g/dL 02/21/2025 8:14 AM CDT [facility] LABORATORY SERVICES - [facility] RDW 16.4(H) 11.5 - 14.5 % 02/21/2025 8:14 AM CDT [facility] LABORATORY SERVICES - [facility] RDW-STDEV 46.1 37.1 - 48.7 fL 02/21/2025 8:14 AM CDT [facility] LABORATORY SERVICES - [facility] PLATELETS 313 140 - 350 K/uL 02/21/2025 8:14 AM CDT [facility] LABORATORY SERVICES - [facility] MPV 11.3 9.3 - 12.4 fL 02/21/2025 8:14 AM CDT [facility] LABORATORY SERVICES - . [facility] NEUTROPHILS 68 % 02/21/2025 8:14 AM CDT [facility]ORY [facility] - [facility] LYMPHOCYTES 20 % 02/21/2025 8:14 AM CDT [facility]ORY SERVICES - [facility] MONOCYTES 8 % 02/21/2025 8:14 AM CDT [facility]ORY SERVICES - [facility] EOSINOPHILS 3 % 02/21/2025 8:14 AM CDT [facility] LAB[facility]ATORY SERVICES - [facility] BASOPHILS 1 % 02/21/2025 8:14 AM CDT [facility]ATORY SERVICES - [facility] IMMATURE GRANULOCYTES 0 % 02/21/2025 8:14 AM CDT [facility]ATORY SERVICES - [facility] NEUTROPHIL ABSOLUTE 5.87 1.90 - 7.00 K/uL 02/21/2025 8:14 AM CDT [facility]ATORY SERVICES - [facility] LYMPHOCYTE ABSOLUTE 1.68 0.70 - 4.50 K/uL 02/21/2025 8:14 AM CDT [facility]ATORY SERVICES - [facility] MONOCYTE ABSOLUTE 0.67 0.10 - 1.30 K/uL 02/21/2025 8:14 AM CDT [facility]ATORY SERVICES - [facility] EOSINOPHIL ABSOLUTE 0.23 0.00 - 0.70 K/uL 02/21/2025 8:14 AM CDT [facility]ATORY SERVICES - [facility] BASOPHILS ABSOLUTE 0.09 0.00 - 0.20 K/uL 02/21/2025 8:14 AM CDT [facility] LABORATORY SERVICES - [facility] IMMATURE GRANULOCYTES ABSOLUTE 0.03 0.00 - 0.03 K/uL 02/21/2025 8:14 AM CDT [facility] Blood Venipuncture / Unknown 02/21/2025 7:56 AM CDT 02/21/2025 8:06 AM CDT us Anna Ahmet ADORNO HEMATOLOGY ORDERABLES Final Resu lt [facility] LABORATORY SERVICES - [facility]# [id number] [address] [place] [address] [place] [address] from Last 3 Months Insurance MEDICARE PART A AND B AETNA MEDICARE SUPP AESSI MEDICARE PART A AND B AETNA MEDICARE SUPP AESSI Advance Directives For more information, please contact: [phone] * Full Code (Latest Code Status on File) Date Activated Date Inactivated Comments 02/21/2025 5:31 PM 02/22/2025 9:03 PM Care Teams Children'S Service Supervisor Relationship Specialty Start Date End Date Luis Chen MD [address] [place] [address] PCP - General Internal Medicine 07/23/22
--- OUTSIDE RECORDS SUMMARY | 2025-05-23 09:42 | XMS_ITS | Clinical Summary ---
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
== END 2025-05-23 09:03 | disposition home or self-care (01) ==
PROVIDERS: PCP Internal Medicine; Visit Provider Radiology Radiation Oncology
DX: C34.11 Malignant neoplasm of upper lobe, right bronchus or lung (principal); K80.20 Calculus of gallbladder without cholecystitis without obstruction
CPT/HCPCS: 78815; A9552